=== PATIENT | male | born 1930 | race Caucasian/White ===

== ENCOUNTER → 2016-06-10 09:43 | Outpatient (CLI) | payer MEDICARE, OTHER ==
[2015-02-11 06:56] VITALS: BMI 25.1
[~2016-06-10 09:43] MED LIST: ASPIRIN325 MG PO; DIOVAN HCT 160/1 TAB PO; HYDROCODONE-APA1 TAB PO; POTASSIUM CHLO10 ME1; ZOCOR10 MG PO
== END | disposition home or self-care (01) ==
LOC: D.CT 09:43
DX: R10.9 Unspecified abdominal pain (principal)

== ENCOUNTER → 2016-09-29 12:46 | Outpatient (CLI) | payer MEDICARE, OTHER ==
[2015-02-11 06:56] VITALS: BMI 25.1
== END | disposition home or self-care (01) ==
LOC: D.US 12:46
DX: N50.811 Right testicular pain (principal)

== ENCOUNTER 2017-10-01 12:09 | Emergency (ER) | payer MEDICARE, OTHER ==
[~2017-10-01] VITALS: Ht 182.9 cm; Wt 88.6 kg
[2017-10-01 12:14] VITALS: Ht 182.9 cm; Wt 88.6 kg
[2017-10-01 12:29] LABS: BASOPHILS 0.2 % (0-2); EOSINOPHILS 0.8 % (0-7); HEMATOCRIT 48.7 % (42.0-54.0); HEMOGLOBIN 16.6 g/dL (13.5-17.5); IMMATURE GRANULOCYTES 0.2 % (0-5); LYMPHOCYTES 23.4 % (15-50); MCH 32.1 pg (26.0-34.0); MCHC 34.1 g/dL (31.0-37.0); MCV 94.2 fL (80.0-100.0); MEAN PLATELET VOLUME 11.1 fL (7.4-10.4); MONOCYTES 7.9 % (2-11); NEUTROPHILS 67.5 % (40-80); PLATELET COUNT 124 10x3/uL (130-400); RBC 5.17 10x6/uL (4.20-6.10); RDW 12.6 % (11.5-14.5); WBC 6.1 10x3/uL (4.8-10.8)
[2017-10-01 12:43] LABS: ALKALINE PHOSPHATASE 65 U/L (46-116); ALT (SGPT) 17 U/L (10-68); BILIRUBIN - TOTAL 1.03 mg/dL (0.2-1.3); CALC OSMOLALITY 285 mosm/kg (275-300); CALCIUM 9.2 mg/dL (8.5-10.1); CARBON DIOXIDE 27.7 mmol/L (21.0-32.0); CHLORIDE - SERUM 105 mmol/L (98-107); CREATININE - SERUM 0.9 mg/dL (0.6-1.3); GLUCOSE 105 mg/dL (74-106); POTASSIUM - SERUM 3.6 mmol/L (3.5-5.1); PROTEIN - SERUM 7.5 g/dL (6.4-8.2); SODIUM 143 mmol/L (136-145); UREA NITROGEN 15 mg/dL (7-18); eGFR NON AFRICAN AMERICAN 85 mL/min (90-120)
[2017-10-01 12:54] LABS: CREATINE KINASE 74 UL (21-232); PRO BNP 150 pg/mL (0-450); TROPONIN-I < 0.017 ng/mL (0.000-0.060)
[2017-10-01] MEDS ORDERED: LEXAPRO10 MG PO (13:52)
[2017-10-01 14:11] LABS: APPEARANCE CLEAR (CLEAR); BILIRUBIN NEGATIVE (NEGATIVE); COLOR YELLOW (YELLOW); GLUCOSE 100 mg/dL (NEGATIVE); KETONE NEGATIVE (NEGATIVE); NITRITE NEGATIVE (NEGATIVE); PROTEIN NEGATIVE (NEGATIVE); SPECIFIC GRAVITY 1.025 (1.005-1.020); UROBILINOGEN NORMAL (NORMAL)
[2017-10-01 14:13] LABS: BACTERIA FEW /hpf (NONE SEEN); EPITHELIAL CELLS 0-5 /hpf (0-5); MUCUS >1+ /lpf (NONE SEEN); RED CELLS - URINE 0-5 /hpf (0-5); WHITE CELLS - URINE 0-5 /hpf (0-5)
[2017-10-01 15:13] VITALS: BP 141/83
== END 2017-10-01 15:15 | disposition home or self-care (01) ==
LOC: D.ER 12:09
PROVIDERS: Emergency Medicine
DX: F32.9 Major depressive disorder, single episode, unspecified (principal); F43.20 Adjustment disorder, unspecified; X30.XXXA Exposure to excessive natural heat, initial encounter; Y93.89 Activity, other specified; Y92.89 Other specified places as the place of occurrence of the external cause

== ENCOUNTER 2018-02-08 10:43 | Outpatient (CLI) | payer MEDICARE, OTHER ==
[~2018-02-08] VITALS: Ht 182.9 cm; Wt 88.6 kg
--- NOTE | ~2018-02-08 | HEMODYNAMI ---
PATIENT:JAVIER PENNY MEDICAL RECORD: [id number] : 34 LOCATION:[facility] ADMISSION DATE: 02/08/18 Generatedon:02/08/201813:19 Patient name: JAVIER PENNY Patient #: [id number] SSN: : 1930 Date of study: 02/08/2018 Page: Of Hemodynamic Procedure Report Patient Data Patient Demographics Procedure consent was obtained First Name: JAVIER Gender: Male Last Name: ZOHAIB : 1930 Middle Initial: E Age: 87 year(s) Patient #: [id number] Race: Unknown Additional ID: [id number] Contact details [address]: [address] [place] [address] ROAD State: [place] City: [place] Zip code: [address] Past Medical History Allergies Allergen Reaction Date Comments Reported Other allergy 02/08/2018 Tetanus,Keflex Admission Admission Data Admission Date: 02/08/2018 Admission Time: 10:43 Admit Source: Other Lab Results Lab Result Date: 02/08/2018 Lab Result Time: 11:28 Biochemistry Name Units Result Min Max BUN mg/dl 19 --(----)*- 7 18 Creatinine mg/dl 1 --(--*-)-- 0.6 1.3 CBC Name Units Result Min Max Hematocrit % 48 --(-*--)-- 42 54 Hemoglobin g/dl 16.3 --(--*-)-- 13.5 17.5 Procedure Procedure Types Cath Procedure Peripheral Cath Diagnostic Procedure Geospatial Technician Peripheral Procedures Tzzid-Sorpxnh-Uch-Off Procedure Description Procedure Date Procedure Date: 02/08/2018 Procedure Start Time: 13:03 Procedure End Time: 13:17 Procedure Staff Name Function Adolfo Tyler RT Monitor Patito Au RT Scrub Parminder Mak RT Waterproof Material Folder Varun Mccann MD Performing Physician Chavez Luis RN Nurse Marino Sweeney RT Monitor Procedure Data Cath Procedure Fluoroscopy Diagnostic fluoroscopy Total fluoroscopy Time: 1.1 time: 1.1 min min Diagnostic fluoroscopy Total fluoroscopy dose: 224 dose: 224 mGy mGy Contrast Material Contrast Material Type Amount (ml) Isovue 300 73 Entry Location Entry Primary Successful Side Size Upsize Upsize Entry Closure Succes sful Closure Location (Fr) 1 (Fr) 2 (Fr) Remarks Device Remarks Femoral Right 5 Fr Exoseal artery Estimated blood loss: 10 ml Diagnostic catheters Device Type Used For End Catheter Placement DIAGNOSTIC UF 5Fr Procedure catheter ([id number]) Procedure Complications No complications Procedure Medications Medication Administration Route Dosage 0.9% NaCl I.V. 100 ml/hr Oxygen etCO2 Nasal cannula 2 l/min Lidocaine 2% added to field 20 Heparin Flush Bag added to field 2 bags (1000units/500ml NS) Versed I.V. 2 mg Fentanyl I.V. 50 mcg Versed I.V. 2 mg Fentanyl I.V. 50 mcg Hemodynamics Rest HGB: 16.3 (g/dl) Heart Rate: 83 (bpm) Pressure Samples Time Site Value (mmHg) Purpose Heart Use Rate(bpm) 13:12 AO 125/69(94) Snapshot 102 Snapshots Pre Cath Intra NCS Post Cath Vital Signs Time Heart Resp SPO2 etCO2 NIBP (mmHg) Rhythm Pain Sedation Rate (ipm) (%) (mmHg) Status Level (bpm) 12:50:54 93 17 100 29.3 151/87(122) Paced 0 (11) 10(A) , No pain 12:55:16 87 16 100 33.9 157/84(124) Paced 0 (11) 10(A) , No pain 13:00:30 82 17 100 35.3 158/95(137) Paced 0 (11) 10(A) , No pain 13:06:18 80 17 100 35.3 161/67(112) Paced 0 (11) 10(A) , No pain 13:10:44 82 16 100 24 158/100(116) Paced 0 (11) 10(A) , No pain 13:15:53 77 17 98 39.1 174/90(120) Paced 0 (11) 10(A) , No pain Medications Time Medication Route Dose Verified Delivered Reason Notes Eff ectiveness by by 12:48:35 0.9% NaCl I.V. 100 Benjamin Any used for ml/hr Andrew Nelson procedure RN 12:48:45 Oxygen etCO2 2 Benjamin Any used for Nasal l/min Andrew Nelson procedure cannula MD MUSTAFA 12:48:53 Lidocaine 2% added 20ml Benjamin Alexander for local to vial [facility] anesthetic field MD ORONA 12:48:58 Heparin Flush added 2 Benjamin Alexander used for Bag to bags [facility] procedure (1000units/500ml field MD ORONA NS) 12:59:08 Versed I.V. 2 mg Varun Any for Ramy Damon sedation RN 12:59:23 Fentanyl I.V. 50 Varun Any for mcg Ramy Damon sedation RN 13:09:36 Versed I.V. 2 mg Varun Any for Ramy Damon sedation RN 13:09:40 Fentanyl I.V. 50 Varun Any for mcg Ramy Damon sedation copy technician Log Time Note 12:20:01 Parminder Mak RT(R) sent for patient. Start room use. 12:38:25 Informed consent obtained and on chart 12:38:29 Admit Source: Other 12:38:59 Diagnostic Cath status Elective 12:39:09 Time tracking: Regular hours (M-F 7:00 - 5:00) 12:39:12 Plan of Care:Hemodynamics will remain stable., Cardiac rhythm will remain stable., Comfort level will be maintained., Respiratory function will remain adequate., Patient/ family verbilizes understanding of procedure., Procedure tolerated without complication., Recovers from procedure without complications.. 12:39:18 Patient received from Pre/Post Procedure Room to CCL 1 Alert and oriented. Tansferred to table in Supine position. 12:39:19 Warm blankets applied, and lydia hugger turned on for patient comfort. 12:39:20 Correct patient and procedure confirmed by team. 12:39:20 ECG and BP/O2 sat monitors applied to patient. 12:39:30 H&P Date Dictated: 02/01/2018 Within 30 days and on chart., H&P Addendum completed by physician on day of procedure. (MUST COMPLETE FOR ALL OUTPATIENTS). 12:48:35 0.9% NaCl 100 ml/hr I.V. was administered by Any Damon RN; used for procedure; 12:48:36 Vital chart was started 12:48:45 Oxygen 2 l/min etCO2 Nasal cannula was administered by Any Nelson RN; used for procedure; 12:48:53 Lidocaine 2% 20ml vial added to field was administered by Benjamin Morales MD; for local anesthetic; 12:48:58 Heparin Flush Bag (1000units/500ml NS) 2 bags added to field was administered by Benjamin Morales MD; used for procedure; 12:56:42 Baseline sample Acquired. 12:56:47 Rhythm: paced 12:56:52 Full Disclosure recording started 12:56:57 Pre-procedure instructions explained to patient. 12:57:02 Pre-op teaching completed and patient verbalized understanding. 12:57:03 Family in waiting room. 12:57:04 Patient NPO since Midnight. 12:57:16 Patient allergic to Other allergyTetanus,Keflex 12:57:20 Is the patient allergic to Iodine/contrast media? No. 12:57:22 Is patient on blood thinner?No 12:57:23 Patient diabetic? No. 12:57:36 Previous problem with sedation/anesthesia? No ? 12:57:38 Snore? No 12:57:39 Sleep apnea? No 12:57:40 Deviated septum? No 12:57:45 Opens mouth fully? Yes 12:57:46 Sticks out tongue? Yes 12:57:48 Airway obstruction? No ? 12:57:49 Dentures? No ? 12:57:52 Pre procedure: right dorsailis pedis pulse 2+ Normal; easily identifiable; not easily obliterated 12:57:55 Pre procedure: left posterior tibial pulse 2+ Normal; easily identifiable; not easily obliterated 12:57:57 Patient pain scale 0/10 ?. 12:58:00 IV patent on arrival in left forearm with 0.9% NaCl at [facility]. 12:58:34 Lab Result : BUN 19 mg/dl 12:58:34 Lab Result : Creatinine 1 mg/dl 12:58:34 Lab Result : Hemoglobin 16.3 g/dl 12:58:34 Lab Result : Hematocrit 48 % 12:58:36 Lab results completed and on chart. 12:58:38 Bilateral groins area was prepped with chlora-prep and draped in sterile fashion 12:58:39 Alarms reviewed by R. N. 12:58:39 Sharps counted by scrub and verified by R.N. 12:58:41 Physician arrived 12:58:41 --------ALL STOP TIME OUT------ 12:58:42 Final Timeout: patient, procedure, and site verified with staff and physician. All members of the team are in agreement. 12:58:44 Bilateral groins site verified by team. 12:59:03 Physical assessment completed. ASA score P 2 - A patient with mild systemic disease as per Varun Mccann MD. 12:59:06 Sedation plan: IV Moderate Sedation Medication:Versed, Fentanyl 12:59:08 Versed 2 mg I.V. was administered by Any Damon RN; for sedation; 12:59:23 Fentanyl 50 mcg I.V. was administered by Any Damon RN; for sedation; 13:00:13 Zero performed for pressure channel P1 13:02:44 Procedure started. 13:02:47 ACIST Syringe (69826) opened to sterile field. 13:02:47 Bag Decanter (2002S) opened to sterile field. 13:02:49 ACIST Manifold (61473) opened to sterile field. 13:02:50 ACIST Hand Control (76072) opened to sterile field. 13:02:52 Tegaderm 4 x 4 (1626W) opened to sterile field. 13:02:54 Medline Cath Pack ([id number]) opened to sterile field. 13:02:56 DIAGNOSTIC WIRE .035 260cm J wire (830588) opened to sterile field. 13:03:07 SHEATH 5FR [place] (UPY024) opened to sterile field. 13:03:18 Local anesthetic to right femoral artery with Lidocaine 2% by Varun Mccann MD.INITIAL ACCESS ONLY 13:03:45 A 5 Fr sheath was inserted into the Right Femoral artery 13:09:36 Versed 2 mg I.V. was administered by Any Damon RN; for sedation; 13:09:40 Fentanyl 50 mcg I.V. was administered by Any Damon RN; for sedation; 13:10:44 A DIAGNOSTIC UF 5Fr catheter ([id number]) was advanced over the wire and used for Procedure. 13:11:10 Abdominal Aortagram was performed. 13:11:57 Left leg runoff performed. 13:12:20 Right leg runoff performed. 13:13:21 Catheter removed. 13:14:23 EXOSEAL 5Fr (EX500) opened to sterile field. 13:14:38 Sheath removed intact; hemostasis achieved with Exoseal to the Right Femoral artery. 13:14:41 Procedure ended.(Physican Out) 13:15:44 Fluoroscopy time 01.10 minutes. 13:15:58 Fluoroscopy dose: 224 mGy 13:15:58 Flurop Dose total: 224 13:16:04 Contrast amount:Isovue 300 73ml. 13:16:11 Sharps counted by scrub and verified by R.N. 13:16:12 Insertion/operative site no bleeding no hematoma. 13:16:16 Post-op/insertion site Right Femoral artery dressed using a 4 x 4 and Tegaderm. 13:16:17 Post Procedure Pulses reassessed and unchanged 13:16:23 Post-procedure physical assessment completed. ASA score P 2 - A patient with mild systemic disease as per Varun Mccann MD. 13:16:26 Post procedure rhythm: unchanged. 13:16:28 Estimated blood loss: 10 ml 13:16:30 Post procedure instruction explained to patient.Patient verbalizes understanding. 13:16:31 Patient needs reinforcement of post procedure teaching. 13:17:12 Procedure and supply charges have been captured, reviewed, submitted and are correct. 13:17:16 Procedure Complication : No complications 13:17:19 Vital chart was stopped 13:17:19 See physician's report for complete and final results. 13:17:39 Report given to Pre/Post Procedure Room. 13:17:42 Patient transfered to Pre/Post Procedure Room with Stretcher. 13:17:44 Procedure ended. 13:17:44 Full Disclosure recording stopped 13:19:23 End room use (Document Last) Device Usage Item Name Manufacture Quantity Catalog Hospital Part Current Minimal L ot# / Number Charge Number Stock Stock Serial# Code ACIST Acist 1 58070 904985 747374 441313 20 Syringe Medical (93754) Systems Inc Bag Microtek 1 623517 33039 655835 5 Decanter Medical Inc. () ACIST Acist 1 13128 115887 361126 189637 5 Manifold Medical (48960) Systems Inc ACIST Hand Acist 1 40033 094890 908907 988461 5 Control Medical (22803) Systems Inc Tegaderm 4 3M 1 1626W 707370 111076 661684 5 x 4 (1626W) Medline Medline 1 [id number] 044805 77170 694179 5 Cath Pack ([id number]) DIAGNOSTIC St Luis 1 596562 411346 459995 564805 30 WIRE .035 260cm J wire (403760) SHEATH 5FR Terumo 1 PBS328 148564 353148 118055 40 [place] (MHQ737) DIAGNOSTIC Cardinal 1 [id number] 967227 298378 773084 10 UF 5Fr Health catheter (851727I6) EXOSEAL 5Fr Cardinal 1 EX500 699073 915905 679495 10 (EX500) Health Signature Audit [place]inos Stage Time Signature Unsigned Intra-Procedure 02/08/2018 Marino Sweeney 1:19:53 PM RT(R) Signatures Monitor : Adolfo Tyler RT Signature : Date : Time : Monitor : Marino Sweeney RT Signature : Date : Time : [address] [place] [address]
[~2018-02-08 10:43] MED LIST changes: +LEXAPRO10 MG PO
[2018-02-08] MEDS ORDERED: MOBIC7.5 MG PO (11:01)
[2018-02-08 11:19] VITALS: BP 143/78; Ht 182.9 cm; Wt 88.6 kg
[2018-02-08 11:42] LABS: CALC OSMOLALITY 280 mosm/kg (275-300); CALCIUM 8.3 mg/dL (8.5-10.1); CARBON DIOXIDE 26.8 mmol/L (21.0-32.0); CHLORIDE - SERUM 105 mmol/L (98-107); GLUCOSE 105 mg/dL (74-106); POTASSIUM - SERUM 4.1 mmol/L (3.5-5.1); SODIUM 140 mmol/L (136-145); UREA NITROGEN 19 mg/dL (7-18); eGFR NON AFRICAN AMERICAN 75 mL/min (90-120)
[2018-02-08 12:04] LABS: BASOPHILS 0.1 % (0-2); EOSINOPHILS 2.3 % (0-7); HEMOGLOBIN 16.3 g/dL (13.5-17.5); IMMATURE GRANULOCYTES 0.3 % (0-5); LYMPHOCYTES 21.7 % (15-50); MCH 33.1 pg (26.0-34.0); MCV 97.4 fL (80.0-100.0); MEAN PLATELET VOLUME 13.4 fL (7.4-10.4); MONOCYTES 6.5 % (2-11); NEUTROPHILS 69.1 % (40-80); PLATELET COUNT 130 10x3/uL (130-400); RBC 4.93 10x6/uL (4.20-6.10); RDW 12.8 % (11.5-14.5); WBC 7.5 10x3/uL (4.8-10.8)
== END 2018-02-08 15:55 | disposition home or self-care (01) ==
LOC: D.CATH 10:43
PROVIDERS: Internal Medicine Cardiovascular Disease
DX: M25.559 Pain in unspecified hip (principal); M54.5 Low back pain; Z01.812 Encounter for preprocedural laboratory examination

== ENCOUNTER 2018-04-23 22:52 | Emergency (ER) | payer MEDICARE, BC ==
[~2018-04-23] VITALS: Ht 182.9 cm; Wt 90.9 kg
[~2018-04-23 22:52] MED LIST changes: +MOBIC7.5 MG PO
[2018-04-23 23:15] VITALS: Ht 182.9 cm; Wt 90.9 kg
[2018-04-23] MEDS ORDERED: ATIVAN0.5 MG PO (23:17)
[2018-04-23] MEDS ORDERED: TYLENOL W/CODEI1 TAB PO (23:17)
[2018-04-24] MEDS ORDERED: VOLTAREN75 MG PO (00:03)
[2018-04-24 00:58] VITALS: BP 148/71
== END 2018-04-24 00:59 | disposition home or self-care (01) ==
LOC: D.ER 22:52
DX: S94.92XA Injury of unspecified nerve at ankle and foot level, left leg, initial encounter (principal); X58.XXXA Exposure to other specified factors, initial encounter; Y93.89 Activity, other specified; Y92.019 Unspecified place in single-family (private) house as the place of occurrence of the external cause; I10 Essential (primary) hypertension; Z85.038 Personal history of other malignant neoplasm of large intestine; Z85.048 Personal history of other malignant neoplasm of rectum, rectosigmoid junction, and anus; Z95.0 Presence of cardiac pacemaker

== ENCOUNTER 2018-05-15 13:39 | Inpatient (IN) | payer OTHER ==
[2018-05-15] VITALS (9 sets, daily range): BP systolic 106–162; BP diastolic 57–93
[~2018-05-15] VITALS: Ht 182.9 cm; Wt 89.5 kg
[~2018-05-15 13:39] MED LIST changes: +ATIVAN0.5 MG PO; -POTASSIUM CHLO10 ME1; +POTASSIUM CHLO10 ME1 PO; +TYLENOL W/CODEI1 TAB PO; +VOLTAREN75 MG PO
--- NOTE | 2018-05-15 14:43 | NUR ---
TRAUMA BAND NUMBER [id number]
[2018-05-15 15:11] LABS: BASOPHILS 0.3 % (0-2); EOSINOPHILS 0.9 % (0-7); HEMATOCRIT 45.8 % (42.0-54.0); HEMOGLOBIN 15.6 g/dL (13.5-17.5); IMMATURE GRANULOCYTES 0.3 % (0-5); LYMPHOCYTES 11.9 % (15-50); MCH 31.8 pg (26.0-34.0); MCHC 34.1 g/dL (31.0-37.0); MCV 93.3 fL (80.0-100.0); MONOCYTES 7.2 % (2-11); NEUTROPHILS 79.4 % (40-80); PLATELET COUNT 114 10x3/uL (130-400); RBC 4.91 10x6/uL (4.20-6.10); RDW 12.4 % (11.5-14.5); WBC 7.7 10x3/uL (4.8-10.8)
[2018-05-15 15:16] LABS: ALBUMIN 3.6 g/dL (3.4-5.0); ALKALINE PHOSPHATASE 56 U/L (46-116); ALT (SGPT) 18 U/L (10-68); BILIRUBIN - TOTAL 0.55 mg/dL (0.2-1.3); CALC OSMOLALITY 282 mosm/kg (275-300); CALCIUM 8.4 mg/dL (8.5-10.1); CARBON DIOXIDE 26.7 mmol/L (21.0-32.0); CHLORIDE - SERUM 104 mmol/L (98-107); GLUCOSE 112 mg/dL (74-106); POTASSIUM - SERUM 3.8 mmol/L (3.5-5.1); PROTEIN - SERUM 7.1 g/dL (6.4-8.2); SODIUM 141 mmol/L (136-145); UREA NITROGEN 16 mg/dL (7-18); eGFR NON AFRICAN AMERICAN 75 mL/min (90-120)
--- NOTE | 2018-05-15 15:16 | NUR ---
PTS HAND UNWRAPPED AND CLEANSED. SKIN TEAR NOTED TO L HAND. TELFA PAD APPLIED AND HAND WRAPPED BY NURSE.
[2018-05-15 15:29] LABS: CKMB 3.2 U/L (0.0-3.6); CREATINE KINASE 71 UL (21-232)
[2018-05-15 15:33] LABS: TROPONIN-I < 0.017 ng/mL (0.000-0.060)
--- NOTE | 2018-05-15 18:41 | NUR ---
PT RECEIVED TO ROOM VIA STRETCHER. ABLE TO TRANSFER SELF TO BED. ALERT AND ORIENTED. PLACED ON BEDSIDE MONITORING. DR BUNN HAS SEEN PATIENT WHILE IN ED.
--- NOTE | 2018-05-15 18:55 | NUR ---
PT GIVEN INCENTIVE SPIROMETRY. ABLE TO REACH 1500 REPEATEDLY. INSTRUCTED ON USE.
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
--- NOTE | 2018-05-15 19:00 | NUR ---
SITTING UP IN BED AWAKE AND ALERT, VISITING WITH FAMILY. COMPLAINS OF PAIN IN CHEST MUSCLES, RATED 3/10 ON PAIN SCALE. SCD PLACED. SIDERAILS UP X2. CALL LIGHT WITHIN REACH.
--- NOTE | 2018-05-15 19:39 | NUR ---
EMERGENCY CONTACTS ARE GRANDDAUGHTERS SHEA PENNY [phone] TANNER PENNY CELL [phone] STAYING AT HOUSE. HIS NUMBER IS [phone] GRANDDAUGHTER TANNER HAS BEEN LIVING WITH PATIENT FOR +-6MONTHS
--- NOTE | 2018-05-15 21:00 | NUR ---
SITTING UP IN BED, AWAKE AND ALERT. REPORTS PAIN IN CHEST MUSCLES "BETTER." RATED 2/10 ON PAIN SCALE. ASSISTED WITH REPOSITIONING TO RT SIDE. CALL LIGHT IN REACH. SR UP X2. NO DISTRESS OBSERVED.
--- NOTE | 2018-05-15 23:00 | NUR ---
LYING IN BED, AWAKE AND ALERT. 50ML OF DARK YELLOW URINE EMPTIED FROM URINAL. ENCOURAGED TO USE INCENTIVE SPIROMETER. CALL LIGHT IN REACH. SIDE RAILS UP X2. NO DISTRESS OBSERVED.
[2018-05-16] VITALS (13 sets, daily range): BP systolic 90–160; BP diastolic 60–100; Ht 182.9 cm; Wt 89.5 kg
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
[2018-05-16 02:50] LABS: BASOPHILS 0.1 % (0-2); EOSINOPHILS 0.2 % (0-7); HEMATOCRIT 42.2 % (42.0-54.0); HEMOGLOBIN 14.2 g/dL (13.5-17.5); IMMATURE GRANULOCYTES 0.2 % (0-5); LYMPHOCYTES 11.1 % (15-50); MCH 31.3 pg (26.0-34.0); MCHC 33.6 g/dL (31.0-37.0); MCV 93.2 fL (80.0-100.0); MEAN PLATELET VOLUME 11.1 fL (7.4-10.4); MONOCYTES 9.5 % (2-11); NEUTROPHILS 78.9 % (40-80); PLATELET COUNT 104 10x3/uL (130-400); RBC 4.53 10x6/uL (4.20-6.10); RDW 12.4 % (11.5-14.5); WBC 8.2 10x3/uL (4.8-10.8)
--- NOTE | 2018-05-16 03:00 | NUR ---
RESTING IN BED WITH EYES CLOSED. ROUSES EASILY TO VERBAL STIMULI. ASSISTED IN REPOSITIONING TO RT SIDE. CALL LIGHT IN REACH. SR UP X2. NO DISTRESS OBSERVED.
[2018-05-16 03:06] LABS: ALBUMIN 3.2 g/dL (3.4-5.0); ALKALINE PHOSPHATASE 46 U/L (46-116); ALT (SGPT) 15 U/L (10-68); BILIRUBIN - TOTAL 0.87 mg/dL (0.2-1.3); CALC OSMOLALITY 279 mosm/kg (275-300); CALCIUM 7.8 mg/dL (8.5-10.1); CARBON DIOXIDE 25.4 mmol/L (21.0-32.0); CHLORIDE - SERUM 104 mmol/L (98-107); CREATININE - SERUM 0.9 mg/dL (0.6-1.3); GLUCOSE 117 mg/dL (74-106); POTASSIUM - SERUM 3.7 mmol/L (3.5-5.1); PROTEIN - SERUM 6.4 g/dL (6.4-8.2); SODIUM 140 mmol/L (136-145); UREA NITROGEN 13 mg/dL (7-18); eGFR NON AFRICAN AMERICAN 85 mL/min (90-120)
[2018-05-16 03:07] LABS: TROPONIN-I < 0.017 ng/mL (0.000-0.060)
--- NOTE | 2018-05-16 05:00 | NUR ---
RESTING IN BED WITH EYES CLOSED. ROUSES EASLIY TO VERBAL STIMULI. NO DISTRESS NOTED.
--- NOTE | 2018-05-16 06:11 | NUR ---
CALL RECEIVED FROM [facility], [facility]ITY [facility]ORD VERIFIED UPDATE GIVEN QUESTIONS ANSWERED.
--- NOTE | 2018-05-16 06:12 | NUR ---
PT UP TO BATHROOM C/O PAIN IN STERNUM AND MUSCULAR AREA OF CHEST. MEDS GIVEN PER MAR
--- NOTE | 2018-05-16 06:30 | NUR ---
COMPLAINING OF PAIN. STERNAL CHEST/MUSCULAR. RATED 10/10. COMPLAINS OF NAUSEA
--- NOTE | 2018-05-16 07:00 | NUR ---
RESTING IN BED WITH EYES CLOSED, ROUSES EASILY TO VERBAL STIMULI. DENIES PAIN OR NAUSEA AT PRESENT. RATED 0/10 ON NUMERICAL PAIN SCALE. NO STATUS CHANGE OR DISTRESS NOTED. CALL LIGHT IN REACH. SIDE RAILS UP X2.
--- NOTE | 2018-05-16 08:06 | NUR ---
UP IN BED AWAKE AT THIS TIME, FAMILY AT BEDSIDE. NO ACUTE DISTRESS NOTED. DRESSING TO LT HAND CHANGED, NOTED AN OPEN SKIN TARE TO 4TH KNUCKLE. 4X4 AND TAPE APPLIED TO AREA AFTER AREA CLEANSED. WILL CONTINUE PLAN OF CARE.
--- NOTE | 2018-05-16 10:00 | NUR ---
PT CONFIRMS THAT HE IS PASSING GAS.
--- NOTE | 2018-05-16 12:06 | NUR ---
UP IN BEDSIDE CHAIR AT THIS TIME VISITING WITH FAMILY. NO ACUTE DISTRESS NOTED. PT ABLE TO WALK WITH ASSIST. CALL LIGHT IN REACH. WILL CONTINUE PLAN OF CARE.
--- NOTE | 2018-05-16 14:07 | NUR ---
UP IN CHAIR WATCHING TV AT THIS TIME. NO ACUTE DISTRESS NOTED. WILL CONTINUE PLAN OF CARE.
--- NOTE | 2018-05-16 14:15 | MORECARE ---
CASE MANAGEMENT DISCHARGE SUMMARY PATIENT: JAVIER PENNY UNIT: [id number] ADM DATE: 05/15/18 AGE: 87 : 32 SEX: M [facility] AUTHOR: GONZÁLEZ OLVERA PHYSICIAN: REFERRING PHYSICIAN: CARLOS RODRIGUEZ MD DATE OF SERVICE: 05/16/18 Discharge Plan Patient Name: JAVIER PENNY [facility] [facility] 1930 Planned Disposition: Home Anticipated Discharge Date: Discharge Date: Expected LOS: Initial Reviewer: [email or web address] Initial Review Date: 05/16/2018 Generated: 05/16/18 3:15 pm DCPIA - Discharge Planning Initial Assessment Updated by [email or web address]: Taty Teran on 05/16/18 2:12 pm * Is the patient Alert and Oriented? Yes * How many steps to enter\exit or inside your home? * PCP [facility] * Pharmacy NP - [facility] * Preadmission Environment Home Alone * ADLs Independent * Equipment None * List name and contact numbers for known caregivers / representatives who currently or will assist patient after discharge: EDDIE RILEY [facility] [phone] * Verbal permission to speak to the caregivers and representatives has been obtained from the patient. Yes * Community resources currently utilized None * Additional services required to return to the preadmission environment? No * Can the patient safely return to the preadmission environment? Yes * Has this patient been hospitalized within the prior 30 days at any hospital? No Patient Name: JAVIER PENNY Page [phone] at 1415 All edits/amendments must be made on the electronic document DICTATION DATE: 05/16/181413 FOSTER CARE WORKER: RICHIE 05/16/18 1414 RPT#: [id number] DC DATE: STATUS: ADM IN [facility] [address] [place] [address] END OF REPORT
--- NOTE | 2018-05-16 14:24 | MORECARE ---
CASE MANAGEMENT DISCHARGE SUMMARY PATIENT: JAVIER PENNY UNIT: [id number] ADM DATE: 05/15/18 AGE: 87 : 32 SEX: M ROOM/BED: [facility] AUTHOR: WADEDOC PHYSICIAN: REFERRING PHYSICIAN: CARLOS RODRIGUEZ MD DATE OF SERVICE: 05/16/18 Discharge Plan Patient Name: JAVIER PENNY Facility: [facility]:[place] : 1930 Planned Disposition: Home Anticipated Discharge Date: Discharge Date: Expected LOS: Initial Reviewer: [email or web address] Initial Review Date: 05/16/2018 Generated: 05/16/18 3:23 pm Comments DCP- Discharge Planning Updated by [email or web address]: Taty Teran on 05/16/18 1:[address] Patient Name: JAVIER PENNY Admission Status: ER Accout number: [id number] Admission Date: 05-15-2018 : 1930 Admission Diagnosis: Attending: CARLOS RODRIGUEZ Current LOS: 1 Anticipated DC Date: Planned Disposition: Home Primary Insurance: MEDICARE A & B Discharge Planning Comments: CM met with patient at bedside about discharge planning / needs. Patient states he lives alone. Patient states he plans to discharge to his home. States he will have family transport him home upon discharge. Denies need for home health or other community resource needs. States home environment is safe. Denies any discharge needs or concerns at this time. CM will continue to follow and assist as needed with discharge planning / needs. Admissions Director: Taty Teran DCPIA - Discharge Planning Initial Assessment Updated by [email or web address]: Taty Teran on 05/16/18 2:12 pm * Is the patient Alert and Oriented? Yes * How many steps to enter\exit or inside your home? * PCP [facility] * Pharmacy NP - [facility] * Preadmission Environment Home Alone * ADLs Independent * Equipment None * List name and contact numbers for known caregivers / representatives who currently or will assist patient after discharge: EDIDE RILEY - [facility]- [phone] * Verbal permission to speak to the caregivers and representatives has been obtained from the patient. Yes * Community resources currently utilized None * Additional services required to return to the preadmission environment? No * Can the patient safely return to the preadmission environment? Yes * Has this patient been hospitalized within the prior 30 days at any hospital? No Last DP export: 05/16/18 1:15 p Patient Name: JAVIER PENNY Page [id number] at 1424 All edits/amendments must be made on the electronic document DICTATION DATE: 05/16/181422 CENSUS ENUMERATOR: RICHIE 05/16/181422 RPT#: [id number] DC DATE: STATUS: ADM IN [facility] [address] [place] [address] END OF REPORT
--- NOTE | 2018-05-16 16:08 | NUR ---
NO CHANGE. NO ACUTE DISTRESS NOTED. PT UP IN CHAIR WATCHING TV. DENIES ANY NEEDS. WILL CONTINUE PLAN OF CARE.
--- NOTE | 2018-05-16 17:22 | NUR ---
AIR MATRESS OVERLAY PLACED AT THIS TIME TO BED. TOTAL LINEN CHANGE PROVIDED. NO ACUTE DISTRESS NOTED. WILL CONTINUE PLAN OF CARE.
--- NOTE | 2018-05-16 18:42 | NUR ---
CONTINENT BOWEL MOVEMENT NOTED AT THIS TIME VIA TOILET. PT PROVIDED OWN GRACIELA CARE. LYING IN BED WATCHING TV NOW. TRANSFERRED VIA MINIMA ASSIST. NO ACUTE DISTERSS NOTED. WILL CONTINUE PLAN OF CARE.
--- NOTE | 2018-05-16 19:00 | NUR ---
REPORT RECEIVED CARE ASSUMED INITIAL SHIFT ASSESSMENT COMPLETED SEE FLOWSHEET. PT AAOX4 WATCHING TELEVISION. DENIES NEEDS AT THIS TIME. PT MONITORED PER STANDARD CVICU PROTOCOL WITH ALL ALARMS SET, VERIFIED AND AUDIBLE AT NURSES STATION. BED IN LOW POSITION CALL LIGHT IN REACH AND PT ABLE TO USE TO MAKE NEEDS KNOWN. PT AWARE OF TRANSFER ORDERS. AWAITING BED ASSIGNMENT AND ROOM NUMBER.
--- NOTE | 2018-05-16 21:55 | NUR ---
ASSISTED PT UP TO BR TO VOID.. PT GAIT SLIGHTLY UNSTEADY. HE STATES HE ALWAYS HOLDS TO THINGS TO STEADY SELF. VOIDED FREELY. MEDS GIVEN DOCUMENTED ON MAR FOR PAIN IN STERNUM AGGRAVATED BY MOVEMENT. HS SNACK OFFERED-REFUSED.
--- NOTE | 2018-05-16 23:00 | NUR ---
PT RESTING WELL TONIGHT. NO C/O . EASILY AWAKEN
--- NOTE | 2018-05-17 01:00 | NUR ---
PT ASLEEP, RESP REG AND NONLABORED
[2018-05-17 03:00] VITALS: BP 119/76
--- NOTE | 2018-05-17 03:00 | NUR ---
PT AWAKE DENIES NEEDS.
--- NOTE | 2018-05-17 05:00 | NUR ---
PT WAS GIVEN MEDS DOCUMENTED ON JUN FOR DISCOMFORT. PT STATING HE FEELS TÑOO GOOD. REFUSED OFFERED BATH STATING HE WANTS TO WAIT UNTIL HE CAN GET IN A SHOWER. NO FURTHER NEEDS AT THIS TIME
[2018-05-17 07:00] VITALS: BP 138/82
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
--- NOTE | 2018-05-17 10:41 | NUR ---
DR RODRIGUEZ IN UNIT STATED HE WANTS TO DC PT HOME AND HE WILL PUT DC ORDERS IN, WRITTEN PRESCRIPTION FOR NORCO, CALLED PT GRANDDAUGHTER WHO STATED SHE WILL SEND FAMILY TO PICK PT UP
[2018-05-17] MEDS ORDERED: ASPIRIN325 MG PO (10:51)
[2018-05-17 11:00] VITALS: BP 144/86
--- NOTE | 2018-05-17 11:31 | NUR ---
PIV DCD, DC MEDS AND TEACHING REVIEWED WITH PT AND GRANDDAUGHTER, DENY ALL QUESTIONS, STATE THEY WILL SCHEDULE FOLLOW UP APPT WITH DR POTTER, ASSISTED TO CAR WITHOUT DIFFICULTY
--- NOTE | 2018-05-17 18:45 | MORECARE ---
CASE MANAGEMENT DISCHARGE SUMMARY PATIENT: JAVIER PENNY UNIT: [id number] ADM DATE: 05/15/18 AGE: 87 : 32 SEX: M ROOM/BED: D.08 AUTHOR: WADE,DOC PHYSICIAN: REFERRING PHYSICIAN: CARLOS RODRIGUEZ MD DATE OF SERVICE: 05/17/18 Discharge Plan Patient Name: JAVIER PENNY Facility: [facility]:[place] : 1930 Planned Disposition: Home Anticipated Discharge Date: Discharge Date: 05/17/2018 Expected LOS: Initial Reviewer: [email or web address] Initial Review Date: 05/16/2018 Generated: 05/17/18 7:45 pm Comments DCP- Discharge Planning Updated by [email or web address]: Taty Teran on 05/16/18 1:[address] Patient Name: JAVIER PENNY Admission Status: ER Accout number: [id number] Admission Date: 05-15-2018 : 1930 Admission Diagnosis: Attending: CARLOS RODRIGUEZ Current LOS: 1 Anticipated DC Date: Planned Disposition: Home Primary Insurance: MEDICARE A & B Discharge Planning Comments: CM met with patient at bedside about discharge planning / needs. Patient states he lives alone. Patient states he plans to discharge to his home. States he will have family transport him home upon discharge. Denies need for home health or other community resource needs. States home environment is safe. Denies any discharge needs or concerns at this time. CM will continue to follow and assist as needed with discharge planning / needs. Foam Cutting Supervisor: Taty Teran DCPIA - Discharge Planning Initial Assessment Updated by [email or web address]: Taty Teran on 05/16/18 2:12 pm * Is the patient Alert and Oriented? Yes * How many steps to enter\exit or inside your home? * PCP T[facility]IQ * [facility]acy NP - [facility] * Preadmission Environment Home Alone * ADLs Independent * Equipment None * List name and contact numbers for known caregivers / representatives who currently or will assist patient after discharge: EDDIE RILEY - [facility] [phone] * Verbal permission to speak to the caregivers and representatives has been obtained from the patient. Yes * Community resources currently utilized None * Additional services required to return to the preadmission environment? No * Can the patient safely return to the preadmission environment? Yes * Has this patient been hospitalized within the prior 30 days at any hospital? No Last DP export: 05/16/18 1:23 p Patient Name: JAVIER PENNY Page [id number] at 1845 All edits/amendments must be made on the electronic document DICTATION DATE: 05/17/181844 CLIENT APPLICATION SUPPORT SPECIALIST: RICHIE 05/17/181844 RPT#: [id number] DC DATE:05/17/18 STATUS: DIS IN [facility] [address] [place] [address] END OF REPORT
== END 2018-05-17 11:32 | disposition home or self-care (01) | DRG 206 ==
LOC: D.ER 13:39 → D.CVICU 17:50
PROVIDERS: Family Medicine; Thoracic Surgery (Cardiothoracic Vascular Surgery); ADMIT Internal Medicine Nephrology
DX: S27.892A Contusion of other specified intrathoracic organs, initial encounter (principal); S22.20XA Unspecified fracture of sternum, initial encounter for closed fracture; V89.2XXA Person injured in unspecified motor-vehicle accident, traffic, initial encounter; G44.309 Post-traumatic headache, unspecified, not intractable; I10 Essential (primary) hypertension; R53.81 Other malaise; R20.0 Anesthesia of skin

== ENCOUNTER 2018-05-21 16:54 | Inpatient (IN) | payer MEDICARE, BC ==
[~2018-05-21] VITALS: Ht 182.9 cm; Wt 78.8 kg
[2018-05-21] VITALS (11 sets, daily range): BP systolic 129–180; BP diastolic 81–101
[2018-05-21 20:18] LABS: BASOPHILS 0.3 % (0-2); EOSINOPHILS 3.8 % (0-7); HEMATOCRIT 42.7 % (42.0-54.0); HEMOGLOBIN 14.4 g/dL (13.5-17.5); IMMATURE GRANULOCYTES 0.1 % (0-5); LYMPHOCYTES 15.7 % (15-50); MCH 31.9 pg (26.0-34.0); MCHC 33.7 g/dL (31.0-37.0); MCV 94.7 fL (80.0-100.0); MEAN PLATELET VOLUME 11.4 fL (7.4-10.4); MONOCYTES 11.9 % (2-11); NEUTROPHILS 68.2 % (40-80); RBC 4.51 10x6/uL (4.20-6.10); RDW 12.7 % (11.5-14.5); WBC 6.8 10x3/uL (4.8-10.8)
[2018-05-21 20:19] LABS: PLATELET COUNT 132 10x3/uL (130-400)
[2018-05-21 20:25] LABS: INR 1.09 (0.85-1.17); PROTIME 13.6 SECONDS (11.6-15.0)
[2018-05-21 20:33] LABS: ALBUMIN 3.1 g/dL (3.4-5.0); ALKALINE PHOSPHATASE 57 U/L (46-116); ALT (SGPT) 13 U/L (10-68); BILIRUBIN - TOTAL 0.67 mg/dL (0.2-1.3); CALC OSMOLALITY 283 mosm/kg (275-300); CALCIUM 8.4 mg/dL (8.5-10.1); CARBON DIOXIDE 28.2 mmol/L (21.0-32.0); CHLORIDE - SERUM 106 mmol/L (98-107); CREATININE - SERUM 0.9 mg/dL (0.6-1.3); GLUCOSE 114 mg/dL (74-106); POTASSIUM - SERUM 3.7 mmol/L (3.5-5.1); PROTEIN - SERUM 6.8 g/dL (6.4-8.2); SODIUM 141 mmol/L (136-145); UREA NITROGEN 19 mg/dL (7-18); eGFR NON AFRICAN AMERICAN 85 mL/min (90-120)
[2018-05-21 20:42] LABS: C-REACTIVE PROTEIN 2.8 mg/dL (0.0-0.9); CKMB 1.6 U/L (0.0-3.6); CREATINE KINASE 35 UL (21-232)
[2018-05-21 20:45] LABS: TROPONIN-I < 0.017 ng/mL (0.000-0.060)
[2018-05-21 22:21] LABS: APTT 29.6 SECONDS (22.8-39.4)
[2018-05-21 22:34] LABS: D-DIMER-QUANTITATIVE 9.79 ug/mLFEU (0.20-0.54)
[2018-05-22] VITALS (8 sets, daily range): BP systolic 126–154; BP diastolic 61–93; BMI 27.7
[2018-05-22] MEDS ORDERED: ASPIRIN325 MG PO (00:04)
[2018-05-22] MEDS ORDERED: HYDROCODON-ACE1 EAC7 PO (00:04)
[2018-05-22] MEDS ORDERED: NORVASC5 MG PO (00:05)
[2018-05-22] MEDS ORDERED: LEXAPRO20 MG PO (00:07)
--- NOTE | 2018-05-22 00:10 | NUR ---
RECEIVED PT TO FLOOR FROM ER VIA STRETCHER. ACCOMPANIED BY FAMILY AND ER STAFF. TRANFERRED PT TO BED. PT DENIES PAIN. RESUMED HEPARIN DRIP @ 1300 UNIT/HR. ORDERED NEXT PTT FOR 0530 (6 HRS AFTER INITIAL START OF INFUSION) PER PROTOCOL. REVIEWED HOME MEDS AND HISTORY. ASSESSMENT COMPLETE PER FLOW-SHEET. PT EATING ICE CREAM. NO OTHER NEEDS. WILL CONTINUE TO MONITOR.
[2018-05-22 04:55] LABS: BASOPHILS 0.6 % (0-2); HEMATOCRIT 41.9 % (42.0-54.0); HEMOGLOBIN 13.9 g/dL (13.5-17.5); IMMATURE GRANULOCYTES 0.1 % (0-5); LYMPHOCYTES 15.1 % (15-50); MCH 31.5 pg (26.0-34.0); MCHC 33.2 g/dL (31.0-37.0); NEUTROPHILS 67.2 % (40-80); PLATELET COUNT 132 10x3/uL (130-400); RBC 4.41 10x6/uL (4.20-6.10); RDW 12.8 % (11.5-14.5); WBC 7.2 10x3/uL (4.8-10.8)
[2018-05-22 05:11] LABS: ALBUMIN 3.1 g/dL (3.4-5.0); ALKALINE PHOSPHATASE 52 U/L (46-116); ALT (SGPT) 13 U/L (10-68); BILIRUBIN - TOTAL 0.78 mg/dL (0.2-1.3); CALC OSMOLALITY 284 mosm/kg (275-300); CALCIUM 8.2 mg/dL (8.5-10.1); CARBON DIOXIDE 28.4 mmol/L (21.0-32.0); CHLORIDE - SERUM 107 mmol/L (98-107); CREATININE - SERUM 0.7 mg/dL (0.6-1.3); GLUCOSE 116 mg/dL (74-106); POTASSIUM - SERUM 3.6 mmol/L (3.5-5.1); PROTEIN - SERUM 6.5 g/dL (6.4-8.2); SODIUM 142 mmol/L (136-145); UREA NITROGEN 15 mg/dL (7-18); eGFR NON AFRICAN AMERICAN > 90 mL/min (90-120)
--- NOTE | 2018-05-22 08:06 | NUR ---
PT LYING IN BED, EVEN RISE AND FALL OF CHEST NO SIGNS OF LABORED BREATHING, BED IN LOW POSITION, CL IN REACH CONTINUE WITH PLAN OF CARE
--- NOTE | 2018-05-22 17:12 | NUR ---
PT REQUESTED WARM BLANKET AND EXTRA PILLOW, PT STATED PAIN IS AT A 2 AND ONLY WORSE WHEN HE GETS UP. ADMINISTERED PRN PAIN MEDICATION TO PT. FAMILY AT BEDSIDE, CONTINUE WITH PLAN OF CARE
[2018-05-23 04:39] VITALS: BP 153/83
[2018-05-23 06:45] LABS: ALBUMIN 3.1 g/dL (3.4-5.0); ALKALINE PHOSPHATASE 57 U/L (46-116); ALT (SGPT) 13 U/L (10-68); BILIRUBIN - TOTAL 0.74 mg/dL (0.2-1.3); CALC OSMOLALITY 286 mosm/kg (275-300); CALCIUM 8.5 mg/dL (8.5-10.1); CARBON DIOXIDE 26.5 mmol/L (21.0-32.0); CHLORIDE - SERUM 106 mmol/L (98-107); GLUCOSE 105 mg/dL (74-106); POTASSIUM - SERUM 3.6 mmol/L (3.5-5.1); PROTEIN - SERUM 6.6 g/dL (6.4-8.2); SODIUM 143 mmol/L (136-145); UREA NITROGEN 17 mg/dL (7-18); eGFR NON AFRICAN AMERICAN 75 mL/min (90-120)
[2018-05-23 06:48] LABS: BASOPHILS 0.3 % (0-2); EOSINOPHILS 4.8 % (0-7); HEMATOCRIT 41.9 % (42.0-54.0); HEMOGLOBIN 13.9 g/dL (13.5-17.5); IMMATURE GRANULOCYTES 0.1 % (0-5); LYMPHOCYTES 17.5 % (15-50); MCH 31.7 pg (26.0-34.0); MCHC 33.2 g/dL (31.0-37.0); MCV 95.7 fL (80.0-100.0); MEAN PLATELET VOLUME 11.6 fL (7.4-10.4); MONOCYTES 10.1 % (2-11); NEUTROPHILS 67.2 % (40-80); PLATELET COUNT 144 10x3/uL (130-400); RBC 4.38 10x6/uL (4.20-6.10); RDW 12.7 % (11.5-14.5)
[2018-05-23 08:39] VITALS: BP 159/91
--- NOTE | 2018-05-23 10:24 | NUR ---
RECEIVED VIA WHEELCHAIR AND ON ROOM AIR TO ROOM FROM MED/SURG. PLACED ON HIGH FLOW 1.5 L NC. HEPARIN INFUSING TO LEFT HAND AT 13 CC/HR. GLASSES ON. INSTRUCTED TO PLEASE USE CALL LIGHT FOR ALL NEEDS. BILATERAL BRUISING (HEALING) TO BILATERAL BREAST AREA.
--- NOTE | 2018-05-23 10:39 | NUR ---
WHILE REVIEWING PTT I SEE THE LAB VALUE FROM 0410 IS 129.5, STAT LAB PTT NEEDS TO BE DRAWN.
--- NOTE | 2018-05-23 11:29 | NUR ---
I CALLED TO SEE IF RESULTS OF PTT IS DONE YET, I WAS TOLD IT WAS "ON THE MACHINE". WILL CONTINUE TO WAIT ON RESULTS.
--- NOTE | 2018-05-23 11:45 | NUR ---
PTT RESULTS ARE BACK 125.3. HEPARIN DOSE IS PAUSED X 30 MIN. WILL LOWER DOSE BY 200 U (2 CC) IN 30 MIN AND THEN REDRAW AT SCHEDULED TIME.
--- NOTE | 2018-05-23 12:19 | NUR ---
1215-RESTARTED HEPARING DRIP AT 11 CC/HR. ORDERED REDRAW OF PTT FOR 1814.
--- NOTE | 2018-05-23 12:45 | NUR ---
PATIENT IS SITTING ON SIDE OF BED EATING LUNCH. STATES THAT HE FEELS MUCH BETTER NOW.
--- NOTE | 2018-05-23 14:54 | NUR ---
CALLED TO ROOM WITH PATIENT HAVING IV PULLED OUT AND BLEEDING. CATH TIP INTACT. RE-SITED TO LEFT FA WITH 22 G X 1 STICK.
[2018-05-23 19:11] VITALS: BP 159/88
--- NOTE | 2018-05-23 19:21 | NUR ---
PT IN BED DENIES NEEDS AT THIS TIME.
--- NOTE | 2018-05-23 20:49 | NUR ---
PTT 69.9. NO CHANGE PER PROTOCOL. PTT ORDERED WITH AM LAB.
[2018-05-23 22:27] VITALS: BP 166/91
[2018-05-24 02:16] VITALS: BP 161/95
--- NOTE | 2018-05-24 02:36 | NUR ---
PT ASLEEP, HEPARIN INFUSING AT 11 ORDERED. PT HAS NO S/S OF DISTRESS. RESP EVEN AND UNLABORED. BEDLOW AND CALLIGHT IN REACH. WILL CPOC
[2018-05-24 05:19] LABS: BASOPHILS 0.3 % (0-2); EOSINOPHILS 3.9 % (0-7); HEMATOCRIT 42.5 % (42.0-54.0); HEMOGLOBIN 14.2 g/dL (13.5-17.5); MCH 31.7 pg (26.0-34.0); MCHC 33.4 g/dL (31.0-37.0); MCV 94.9 fL (80.0-100.0); NEUTROPHILS 66.8 % (40-80); PLATELET COUNT 139 10x3/uL (130-400); RBC 4.48 10x6/uL (4.20-6.10); RDW 12.7 % (11.5-14.5); WBC 6.2 10x3/uL (4.8-10.8)
[2018-05-24 05:39] LABS: ALBUMIN 3.2 g/dL (3.4-5.0); ALKALINE PHOSPHATASE 62 U/L (46-116); ALT (SGPT) 12 U/L (10-68); CALC OSMOLALITY 283 mosm/kg (275-300); CALCIUM 8.5 mg/dL (8.5-10.1); CARBON DIOXIDE 27.6 mmol/L (21.0-32.0); CHLORIDE - SERUM 104 mmol/L (98-107); CREATININE - SERUM 0.8 mg/dL (0.6-1.3); GLUCOSE 117 mg/dL (74-106); POTASSIUM - SERUM 3.7 mmol/L (3.5-5.1); SODIUM 142 mmol/L (136-145); eGFR NON AFRICAN AMERICAN > 90 mL/min (90-120)
[2018-05-24 05:44] VITALS: BP 167/85
[2018-05-24 05:46] LABS: UREA NITROGEN 12 mg/dL (7-18)
--- NOTE | 2018-05-24 07:03 | NUR ---
PT EMERGENCY LIGHT ON. ASSISTED PT FROM BATHROOM BACK TO BED. PT DENIES PAIN AT THIS TIME. PT C/O CONSTIPATION. STATES HE NEEDS A LAXATIVE. INFORMED PT THAT I WOULD SEE IF I COULD GET HIM SOMETHING. NO OTHER CONCERNS AT THIS TIME. BED LOWERED AND LOCKED. CL IN REACH. WILL CPOC
[2018-05-24 08:41] VITALS: BP 156/90
--- NOTE | 2018-05-24 09:05 | NUR ---
PT GIVEN JUICE MIXTURE OF PRUNE JUICE AND SPRITE BY STUDENT NURSE FOR CONSTIPATION. VITALS STABLE. MEDS GIVEN MY STUDENT NURSE AND INSTRUCTOR. STUDENT REPROTED THAT MEDS WERE GIVEN WITHOUT DIFFICULTY. NO FUTHER CONCERNS AT THIS TIME. BED LOWERED AND LOCKED. CL IN REACH. WILL CPOC.
--- NOTE | 2018-05-24 09:26 | NUR ---
PT HAD A LARGE BROWN SEMI-SOLID BOWEL MOVEMENT. POC SUCESSFUL
--- NOTE | 2018-05-24 11:11 | NUR ---
ALERT AND ORIENTED X 4 UP AD JASPER. 1.5 L OF O2 PER NASAL CANNULA. BREATH SOUNDS ARE DIMINISHED. HEPARIN INFUSING. PATIENT WITH NO COMPLAINTS AT THIS TIME. I CONQUER WITH THE LPNS ASSESSMENT.
[2018-05-24 12:04] VITALS: BP 133/78
[2018-05-24 17:52] VITALS: BP 121/91
--- NOTE | 2018-05-24 18:47 | NUR ---
IV TO L FOREARM INFILTRATED. IV REMOVED. TIP INTACT. NEW IV TO R FOREARM SITED 22G, PATENT, DRSG C/D/I. HEPARIN AT 10 CC/HOUR.
--- NOTE | 2018-05-24 19:10 | NUR ---
1909- LAB APTT WAS 34.1 PER PROTOCOL A BOLUS OF HEPARIN 3000 UNITS WAS GIVEN AND THE RATE INCREASE BY 200 UNITS/HR. THE UNITS PER HR WAS INCREASE FROM 10 TO 12 UNITS/HR. WILL CONTINUE TO MONITOR PT NAD FOLLOW PLAN OF CARE. CALL LIGHT IN REACH
--- NOTE | 2018-05-24 21:15 | NUR ---
RESUMING PT CARE. PT ALERT LAYING IN BED WATCHING TV. NO C/O VOICED AT THIS TIME. RESPIRATIONS EVEN AND UNLABORED. BED IN LOW POSITION WITH CALL LIGHT IN REACH. WILL CONTINUE TO MONITOR PT AND FOLLOW PLAN OF CARE.
[2018-05-24 22:04] VITALS: BP 171/73
[2018-05-25 01:17] VITALS: BP 153/89
[2018-05-25 04:00] LABS: BASOPHILS 0.3 % (0-2); EOSINOPHILS 4.3 % (0-7); HEMATOCRIT 39.9 % (42.0-54.0); HEMOGLOBIN 13.4 g/dL (13.5-17.5); IMMATURE GRANULOCYTES 0.2 % (0-5); LYMPHOCYTES 20.8 % (15-50); MCH 31.7 pg (26.0-34.0); MCHC 33.6 g/dL (31.0-37.0); MCV 94.3 fL (80.0-100.0); MEAN PLATELET VOLUME 10.7 fL (7.4-10.4); MONOCYTES 10.2 % (2-11); NEUTROPHILS 64.2 % (40-80); PLATELET COUNT 144 10x3/uL (130-400); RBC 4.23 10x6/uL (4.20-6.10); RDW 12.7 % (11.5-14.5); WBC 6.1 10x3/uL (4.8-10.8)
[2018-05-25 04:11] LABS: ALBUMIN 2.9 g/dL (3.4-5.0); ALKALINE PHOSPHATASE 60 U/L (46-116); BILIRUBIN - TOTAL 0.67 mg/dL (0.2-1.3); CALC OSMOLALITY 280 mosm/kg (275-300); CALCIUM 8.4 mg/dL (8.5-10.1); CARBON DIOXIDE 28.7 mmol/L (21.0-32.0); CHLORIDE - SERUM 102 mmol/L (98-107); CREATININE - SERUM 0.8 mg/dL (0.6-1.3); GLUCOSE 121 mg/dL (74-106); POTASSIUM - SERUM 3.7 mmol/L (3.5-5.1); PROTEIN - SERUM 6.5 g/dL (6.4-8.2); SODIUM 141 mmol/L (136-145); UREA NITROGEN 11 mg/dL (7-18); eGFR NON AFRICAN AMERICAN > 90 mL/min (90-120)
[2018-05-25 04:16] LABS: ALT (SGPT) 20 U/L (10-68)
--- NOTE | 2018-05-25 04:44 | NUR ---
0347 APTT WAS 99.3 PER PROTOCOL NO BOLUS WAS GIVEN. INFUSION WAS HELD FOR 30 MINS. HEPARIN WAS DECREASE FROM 12 UNITS/HR TO 11 UNITS/HR. WILL CONTINUE TO MONITOR PT AND FOLLOW PLAN OF CARE.
--- NOTE | 2018-05-25 04:49 | NUR ---
PT STATES THAT HE SAW A LOT OF BLOOD IN HIS URINE WHEN HE WENT TO BATHROOM. PT STATES HE FLUSHED THE TOLIET. I ASK PT TO PLEASE NOT FLUSH TOLIET AFTER HE URINATES SO A NURSE CAN SEE HOW MUCH BLOOD IS IN HIS URINE. PT STATES UNDERSTANDING. WILL CONTINUE TO MONITOR PT AND FOLLOW PLAN OF CARE.
[2018-05-25 06:15] VITALS: BP 153/78
--- NOTE | 2018-05-25 07:04 | NUR ---
PT FAMILY CAME TO DESK AND REPORTED THAT PT HAD BLOOD IN HIS URINE. PT DOES HAVE BLOOD. BLOOD WAS BRIGHT RED. REPORTED TO NEXT SHIFT NURSE.
[2018-05-25 08:33] VITALS: BP 138/69
--- NOTE | 2018-05-25 09:25 | NUR ---
RESP UL ON FLOW. IV PATENT. CALL LIGHT IN REACH. WILL CONT. PLAN OF CARE.
--- NOTE | 2018-05-25 09:35 | NUR ---
ASSESSMENT DONE. DENIES NEEDS.
[2018-05-25 10:59] LABS: APPEARANCE CLOUDY (CLEAR); COLOR DK YELLOW (YELLOW)
[2018-05-25 11:00] LABS: BILIRUBIN NEGATIVE (NEGATIVE); EPITHELIAL CELLS 0-5 /hpf (0-5); GLUCOSE 1000 mg/dL (NEGATIVE); KETONE NEGATIVE (NEGATIVE); NITRITE NEGATIVE (NEGATIVE); PROTEIN NEGATIVE (NEGATIVE); RED CELLS - URINE >50 /hpf (0-5); UROBILINOGEN NORMAL (NORMAL); WHITE CELLS - URINE 0-5 /hpf (0-5)
[2018-05-25 11:01] LABS: BACTERIA FEW /hpf (NONE SEEN)
[2018-05-25 11:47] VITALS: BP 142/76
--- NOTE | 2018-05-25 12:45 | NUR ---
AGREE WITH ASSESMENT.
[2018-05-25 14:18] LABS: PSA - % FREE 6.9 % (()); PSA - FREE 0.51 ng/mL; PSA - TOTAL 7.4 ng/mL (0.0-4.0)
[2018-05-25 14:30] VITALS: BMI 27.2
[2018-05-25 15:01] VITALS: BP 143/57
[2018-05-25 17:52] VITALS: Ht 182.9 cm; Wt 78.8 kg
[2018-05-25 20:00] VITALS: BP 156/84
--- NOTE | 2018-05-25 20:40 | NUR ---
RESUMING PT CARE. PT IS ALERT LAYING IN BED. FAMILY IS AT BEDSIDE. NO C/O VOICED AT THIS TIME. RESP EVEN AND UNLABORED. BED IN LOW POSITION WITH CALL LIGHT IN REACH. WILL CONTINUE TO MONITOR PT AND FOLLOW PLAN OF CARE.
[2018-05-26] VITALS (7 sets, daily range): BP systolic 130–155; BP diastolic 65–100
--- NOTE | 2018-05-26 00:24 | NUR ---
PT HAS BEEN ASKING FOR PAIN MED NORCO 2 HOURS BEFORE MEDS ARE DUE. I EXPLAINED IT IS A PRN MED NOT A SCHEDULE MED.
--- NOTE | 2018-05-26 04:00 | NUR ---
COMMERCIAL LENDER AT BEDSIDE TO OBTAIN VITALS, CALL LIGHT IN REACH. WILL CONTINUE WITH PLAN OF CARE.
--- NOTE | 2018-05-26 04:27 | NUR ---
PT IS STILL ASKING FOR NORCO BEFORE TIME. WAS EXPLAINED IT WAS A PRN MED NOT A SCHEDULE TIME MED.
[2018-05-26 05:23] LABS: ALBUMIN 3.1 g/dL (3.4-5.0); ALKALINE PHOSPHATASE 65 U/L (46-116); BILIRUBIN - TOTAL 0.71 mg/dL (0.2-1.3); CALC OSMOLALITY 280 mosm/kg (275-300); CALCIUM 8.6 mg/dL (8.5-10.1); CARBON DIOXIDE 29.5 mmol/L (21.0-32.0); CHLORIDE - SERUM 105 mmol/L (98-107); CREATININE - SERUM 0.8 mg/dL (0.6-1.3); GLUCOSE 117 mg/dL (74-106); POTASSIUM - SERUM 3.6 mmol/L (3.5-5.1); PROTEIN - SERUM 6.6 g/dL (6.4-8.2); SODIUM 141 mmol/L (136-145); UREA NITROGEN 11 mg/dL (7-18); eGFR NON AFRICAN AMERICAN > 90 mL/min (90-120)
[2018-05-26 05:28] LABS: ALT (SGPT) 32 U/L (10-68)
[2018-05-26 05:38] LABS: HEMATOCRIT 41.2 % (42.0-54.0); HEMOGLOBIN 13.9 g/dL (13.5-17.5); LYMPHOCYTES 23.5 % (15-50); MCH 31.7 pg (26.0-34.0); MCHC 33.7 g/dL (31.0-37.0); MCV 93.8 fL (80.0-100.0); MEAN PLATELET VOLUME 10.8 fL (7.4-10.4); NEUTROPHILS 62.9 % (40-80); PLATELET COUNT 134 10x3/uL (130-400); RBC 4.39 10x6/uL (4.20-6.10); RDW 12.4 % (11.5-14.5); WBC 5.7 10x3/uL (4.8-10.8)
--- NOTE | 2018-05-26 08:30 | NUR ---
PT RESTING IN BED. SON AT BEDSIDE. NO S/S OF ACUTE DISTRESS. CL IN PLACE.
[2018-05-26] MEDS ORDERED: REQUIP0.25 MG PO (14:16)
--- NOTE | 2018-05-26 14:16 | NUR ---
PT CO OF COUGH AND RESTARTING REQUIP. SPOKE WITH STEPHANIE PULIDO AND TO TO START REQUIP 0.25MG 1 TAB QHS. TESSALON PERRL 100MG 1 TAB PO TID. PT WALKED 4X AROUND NURSE'S STATION TODAY. NO S/S OF ACUTE DISTRESS. CL IN PLACE.
--- NOTE | 2018-05-26 18:16 | NUR ---
PT SITTING UP IN BED TALKING WITH DAUGHTER ON PHONE. NO S/S OF ACUTE DISTRESS. CL IN PLACE.
--- NOTE | 2018-05-26 20:30 | NUR ---
RESUMING PT CARE. PT ALERT LAYING IN BED. NO C/O VOICED AT THIS TIME. NO S/S OF DISTRESS. FAMILY IS AT BEDTIME. BED IN LOW POSITION WITH CALL LIGHT IN REACH. WILL CONTINUE TO MONITOR PT AND FOLLOW PLAN OF CARE.
[2018-05-27 03:09] LABS: LUPUS - INTERPRETATION Comment: (()); LUPUS - THROMBIN NEUT 17.1 sec (0.0-23.0); LUPUS - THROMBIN TIME 106.4 sec (0.0-23.0); LUPUS - THROMBIN TIME MIX 65.5 sec (0.0-23.0); LUPUS - dRVVT 30.7 sec (0.0-47.0)
[2018-05-27 03:55] VITALS: BP 145/58
--- NOTE | 2018-05-27 04:25 | NUR ---
I AGREE WITH PRIOR ASSESSMENT.
[2018-05-27 05:09] LABS: BASOPHILS 0.6 % (0-2); EOSINOPHILS 4.5 % (0-7); HEMATOCRIT 41.6 % (42.0-54.0); HEMOGLOBIN 13.7 g/dL (13.5-17.5); IMMATURE GRANULOCYTES 0.6 % (0-5); LYMPHOCYTES 18.8 % (15-50); MCH 31.1 pg (26.0-34.0); MCHC 32.9 g/dL (31.0-37.0); MCV 94.5 fL (80.0-100.0); MEAN PLATELET VOLUME 11.2 fL (7.4-10.4); MONOCYTES 12.7 % (2-11); NEUTROPHILS 62.8 % (40-80); PLATELET COUNT 154 10x3/uL (130-400); RDW 12.8 % (11.5-14.5); WBC 6.4 10x3/uL (4.8-10.8)
[2018-05-27 05:53] LABS: ALBUMIN 3.2 g/dL (3.4-5.0); ALKALINE PHOSPHATASE 76 U/L (46-116); ALT (SGPT) 39 U/L (10-68); BILIRUBIN - TOTAL 0.55 mg/dL (0.2-1.3); CALC OSMOLALITY 286 mosm/kg (275-300); CALCIUM 8.8 mg/dL (8.5-10.1); CHLORIDE - SERUM 105 mmol/L (98-107); CREATININE - SERUM 0.9 mg/dL (0.6-1.3); GLUCOSE 117 mg/dL (74-106); PROTEIN - SERUM 6.5 g/dL (6.4-8.2); SODIUM 144 mmol/L (136-145); UREA NITROGEN 11 mg/dL (7-18); eGFR NON AFRICAN AMERICAN 85 mL/min (90-120)
[2018-05-27 06:02] LABS: POTASSIUM - SERUM 4.6 mmol/L (3.5-5.1)
--- NOTE | 2018-05-27 08:22 | NUR ---
PT RESTING IN BED. GRANDDAUGHTER AT BEDSIDE. NO S/S OF ACUTE DISTRESS. CL IN PLACE.
[2018-05-27 09:17] VITALS: BP 162/88
[2018-05-27 11:12] VITALS: BP 131/61
--- NOTE | 2018-05-27 19:28 | NUR ---
PT RESTING IN BED. REPOSITIONED PILLOW AND ASSITED PT GETTING COMFORTABLE IN BED. NO S/S OF ACUTE DISTRESS. CL IN PLACE.
[2018-05-27 20:10] VITALS: BP 136/67
--- NOTE | 2018-05-27 21:30 | NUR ---
BEDTIME MEDS GIVEN. PT INSTRUCTED ON CONTINUING TO USE PILLOW FOR SPLINTING CHEST WITH COUGHING TO DECREASE PAIN. REQUESTED PAIN PILL GIVEN AT THIS TIME. MONITOR AND CPOC.
[2018-05-27 23:55] VITALS: BP 150/90
[2018-05-28 03:55] VITALS: BP 142/70
[2018-05-28 04:46] LABS: BASOPHILS 0.6 % (0-2); EOSINOPHILS 4.9 % (0-7); HEMATOCRIT 43.2 % (42.0-54.0); HEMOGLOBIN 14.2 g/dL (13.5-17.5); IMMATURE GRANULOCYTES 0.7 % (0-5); LYMPHOCYTES 24.2 % (15-50); MCH 31.5 pg (26.0-34.0); MCHC 32.9 g/dL (31.0-37.0); MCV 95.8 fL (80.0-100.0); MEAN PLATELET VOLUME 11.5 fL (7.4-10.4); MONOCYTES 11.7 % (2-11); NEUTROPHILS 57.9 % (40-80); PLATELET COUNT 158 10x3/uL (130-400); RBC 4.51 10x6/uL (4.20-6.10); WBC 6.9 10x3/uL (4.8-10.8)
[2018-05-28 05:07] LABS: ALBUMIN 3.3 g/dL (3.4-5.0); ALKALINE PHOSPHATASE 81 U/L (46-116); ALT (SGPT) 38 U/L (10-68); BILIRUBIN - TOTAL 0.58 mg/dL (0.2-1.3); CALC OSMOLALITY 283 mosm/kg (275-300); CALCIUM 8.9 mg/dL (8.5-10.1); CARBON DIOXIDE 30.1 mmol/L (21.0-32.0); CHLORIDE - SERUM 105 mmol/L (98-107); GLUCOSE 119 mg/dL (74-106); POTASSIUM - SERUM 4.7 mmol/L (3.5-5.1); PROTEIN - SERUM 6.6 g/dL (6.4-8.2); SODIUM 142 mmol/L (136-145); UREA NITROGEN 13 mg/dL (7-18); eGFR NON AFRICAN AMERICAN 75 mL/min (90-120)
--- NOTE | 2018-05-28 05:41 | NUR ---
ADMINISTERED NORCO AT 0428 FOR LEG PAIN. PT NOW SLIGHTLY MORE COMFORTABLE. MONITOR AND CPOC. EMPTIED URINAL AND INSTRUCTED PT THAT HIS URINE IS VERY DARK SO HE NEEDS TO INCREASE HIS FLUID INTAKE. PLASMALYTE @ 30ML/HR INFUSING. MONITOR AND CPOC.
--- NOTE | 2018-05-28 07:00 | NUR ---
RECEIVED BEDSIDE REPORT. ASSUMED CARE OF PATIENT. PATIENT SITTING UP IN BED, FAMILY AT BEDSIDE. CALL LIGHT WITHIN REACH. PATIENT DENIES NEEDS AT THIS TIME. PERSONAL BELONGINGS BAGS PROVIDED TO THE FAMILY UPON REQUEST AT THIS TIME PATIENT IS SUPPOSED TO BE DISCHARGED.
[2018-05-28 08:50] VITALS: BP 134/67
--- NOTE | 2018-05-28 12:00 | NUR ---
SITTING TO CHAIR AT BEDSIDE. NO DISTRESS. FAMILY AT BEDSIDE AWAITING TO SEE IF PATIENT WILL DISCHARGE TODAY.
[2018-05-28 12:21] VITALS: BP 156/84
--- NOTE | 2018-05-28 13:20 | NUR ---
TELEMETRY APPLIED ORDERED.
--- NOTE | 2018-05-28 14:05 | NUR ---
SPOKE WITH WILL FROM [employer] REGARDING PACEMAKER INTERIGATION. PACEMAKER IS FUNCTIONING NORMALLY, HOWEVER DUE TO PATIENT HAVING PVC'S AND THEN THE PACEMAKER SPIKING, NOT ALL BEATS ARE BEING CAPTURED NOR CAN BE FELT WITH PALPATING A PULSE. WILL STATED THAT WE ARE PROBABLY GETTING READINGS OF 45-50 ON ELECTRONIC BP CUFFS AND O2 SENSORS AND THIS NEON ELECTRICIAN CONFIRMED THAT WE ARE RECEIVING LOW HR READINGS IN THE 50'S AND PALPATED A PULSE OF 73 THIS AM. WILL ASSURED THAT THE PACEMAKE IS FUNCTIONING PROPERLY AND THAT THE HEARTRATE IS IN THE 90'S, AND HAS BEEN IN THE 90'S PROGRAMMED. THANKED MONIQUE FOR CALLING AND EXPLAINING. [employer] INTEROGATION REPORT SCANNED TO PATEINT CHART.
[2018-05-28] MEDS ORDERED: ELIQUIS5 MG PO (14:11)
--- NOTE | 2018-05-28 15:39 | NUR ---
1515 22 GAUGE IV REMOVED FROM RIGHT WRIST. CATHETER TIP INTACT. NO BLEEDING FROM SITE. 2X2 GAUZE APPLIED AND SECURED WITH BANDAID. TOLERATED IV REMOVAL WELL. 1530 COMPLETED PROVIDING DISCHARGE INSTRUCTIONS TO PATIENT AND HIS DAUGHTER. FAMILY AND PATIENT VERBALIZED UNDERSTANDING OF ALL INSTRUCTIONS PROVIDED AND AGREED PATIENT SHOULD NOT DRIVE UNTIL CLEARED BY HIS PCP. HARD SCRIPT FOR NOBOTCO PROVIDED WELL AND COPY PLACED WITH CHART COPY OF DISCHARGE INSTRUCTIONS. 1535 PATIENT LEFT UNIT VIA WHEELCHAIR WITH ALL PERSONAL BELONGINGS. PATIENT DISCHARGED TO HOME WITH FAMILY VIA PRIVATE VEHICLE. NO DISTRESS UPON LEAVING UNIT.
--- NOTE | 2018-05-28 15:42 | MORECARE ---
CASE MANAGEMENT DISCHARGE SUMMARY PATIENT: JAVIER PENNY UNIT: [id number] ADM DATE: 05/21/18 AGE: 87 : 32 SEX: M ROOM/BED: D.2107 AUTHOR: GONZÁLEZ OLVERA PHYSICIAN: REFERRING PHYSICIAN: CARLOS RODRIGUEZ MD DATE OF SERVICE: 05/28/18 Discharge Plan Patient Name: JAVIER PENNY Facility: [facility]:[place] : 1930 Planned Disposition: Home Anticipated Discharge Date: 05/28/18 Discharge Date: Expected LOS: 7 Initial Reviewer: [email or web address] Initial Review Date: 05/28/2018 Generated: 05/28/18 4:42 pm DCPIA - Discharge Planning Initial Assessment Updated by [email or web address]: Sonal Vega on 05/28/18 3:41 pm * Is the patient Alert and Oriented? Yes * PCP TARIQ * Pharmacy [facility] * Preadmission Environment Home with Family * ADLs Independent * List name and contact numbers for known caregivers / representatives who currently or will assist patient after discharge: TANNER BLISS, * Verbal permission to speak to the caregivers and representatives has been obtained from the patient. Yes * Additional services required to return to the preadmission environment? No * Can the patient safely return to the preadmission environment? Yes * Has this patient been hospitalized within the prior 30 days at any hospital? Yes Coverage Notice Reviewer: [id number] - Sonal Vega Notice Issued Date-Time: 05/28/2018 15:38 Notice Type: IM Discharge Notice Notice Delivered To: Patient Relationship to Patient: Self Watch Parts Grinder Name: Delivery Method: HAND - Hand Delivered Olivia Days: Prior Verbal Notification: Recipient Understood Notice: Yes Recipient Signature: Yes Med Rec Note Co-signed by Attending: Coverage Notice Comment: Patient Name: JAVIER PENNY Page [phone] at 1542 All edits/amendments must be made on the electronic document DICTATION DATE: 05/28/181540 POWERTRAIN DESIGN ENGINEER: RICHIE 05/28/181540 RPT#: [id number] DC DATE: STATUS: ADM IN [facility] [address] [place] [address] END OF REPORT
--- NOTE | 2018-05-28 15:49 | MORECARE ---
CASE MANAGEMENT DISCHARGE SUMMARY PATIENT: JAVIER PENNY UNIT: [id number] ADM DATE: 05/21/18 AGE: 87 : 32 SEX: M ROOM/BED: D.2103 AUTHOR: WADE,DOC PHYSICIAN: REFERRING PHYSICIAN: CRALOS RODRIGUEZ MD DATE OF SERVICE: 05/28/18 Discharge Plan Patient Name: JAVIER PENNY Facility: [facility]:[place] : 1930 Planned Disposition: Home Anticipated Discharge Date: 05/28/18 Discharge Date: 05/28/2018 Expected LOS: 7 Initial Reviewer: [email or web address] Initial Review Date: 05/28/2018 Generated: 05/28/18 4:49 pm Comments DCP- Discharge Planning Updated by [email or web address]: Sonal Vega on 05/28/18 2:[address] Patient Name: JAVIER PENNY Admission Status: ER Accout number: [id number] Admission Date: 05-21-2018 : 1930 Admission Diagnosis:OTHER PULMONARY EMBOLISM WITHOUT ACUTE COR PULMONALE Attending: CARLOS RODRIGUEZ Current LOS: 7 Anticipated DC Date: 05-28-2018 Planned Disposition: Home Primary Insurance: MEDICARE A & B Discharge Planning Comments: CM MET WITH PATIENT AND FAMILY ABOUT DC PLANNING/NEEDS. PATIENT STATES NO NEEDS AT THIS TIME, HE HAS PLENTY OF FAMILY TO HELP HIM AT HOME. STATES IF HE DECIDES HE WANTS HH HE WILL CALL HIS PCP. CM WILL FOLLOW AND ASSIST NEEDED WITH DC PLANNING/NEEDS. IM SERVED. Revenue Cycle Specialist: Sonal Vega DCPIA - Discharge Planning Initial Assessment Updated by [id number]: Sonal Vega on 05/28/18 3:41 pm * Is the patient Alert and Oriented? Yes * PCP TARIQ * Pharmacy [facility] * Preadmission Environment Home with Family * ADLs Independent * List name and contact numbers for known caregivers / representatives who currently or will assist patient after discharge: TANNER BLISS, * Verbal permission to speak to the caregivers and representatives has been obtained from the patient. Yes * Additional services required to return to the preadmission environment? No * Can the patient safely return to the preadmission environment? Yes * Has this patient been hospitalized within the prior 30 days at any hospital? Yes Coverage Notice Reviewer: [email or web address] - Sonal Vega Notice Issued Date-Time: 05/28/2018 15:38 Notice Type: IM Discharge Notice Notice Delivered To: Patient Relationship to Patient: Self Ornamental Metal Fabricator Apprentice Name: Delivery Method: HAND - Hand Delivered Olivia Days: Prior Verbal Notification: Recipient Understood Notice: Yes Recipient Signature: Yes Med Rec Note Co-signed by Attending: Coverage Notice Comment: Last DP export: 05/28/18 2:42 p Patient Name: JAVIER PENNY Page 55047 at 1549 All edits/amendments must be made on the electronic document DICTATION DATE: 05/28/18 1548 CONTINUOUS PROCESS ROTARY DRUM TANNER: RICHIE 05/28/18 1548 RPT#: [id number] DC DATE:05/28/18 STATUS: DIS IN [facility] [address] [place] [address] END OF REPORT
--- NOTE | 2018-05-29 09:22 | MORECARE ---
CASE MANAGEMENT DISCHARGE SUMMARY PATIENT: JAVIER PENNY UNIT: [id number] ADM DATE: 05/21/18 AGE: 87 : 32 SEX: M ROOM/BED: D.210 AUTHOR: WADEDOC PHYSICIAN: REFERRING PHYSICIAN: CARLOS RODRIGUEZ MD DATE OF SERVICE: 05/29/18 Discharge Plan Patient Name: JAVIER PENNY Facility: [facility]:[place] : 1930 Planned Disposition: Home Anticipated Discharge Date: 05/28/18 Discharge Date: 05/28/2018 Expected LOS: 7 Initial Reviewer: [email or web address] Initial Review Date: 05/28/2018 Generated: 05/29/18 10:22 am Comments DCP- Discharge Planning Updated by [email or web address]: Sonal Vega on 05/28/18 2:[address] Patient Name: JAVIER PENNY Admission Status: ER Accout number: [id number] Admission Date: 05-21-2018 : 1930 Admission Diagnosis:OTHER PULMONARY EMBOLISM WITHOUT ACUTE COR PULMONALE Attending: CARLOS RODRIGUEZ Current LOS: 7 Anticipated DC Date: 05-28-2018 Planned Disposition: Home Primary Insurance: MEDICARE A & B Discharge Planning Comments: CM MET WITH PATIENT AND FAMILY ABOUT DC PLANNING/NEEDS. PATIENT STATES NO NEEDS AT THIS TIME, HE HAS PLENTY OF FAMILY TO HELP HIM AT HOME. STATES IF HE DECIDES HE WANTS HH HE WILL CALL HIS PCP. CM WILL FOLLOW AND ASSIST NEEDED WITH DC PLANNING/NEEDS. IM SERVED. Welt Slasher: Sonal Vega DCPIA - Discharge Planning Initial Assessment Updated by [id number]: Sonal Vega on 05/28/18 3:41 pm * Is the patient Alert and Oriented? Yes * PCP TARIQ * Pharmacy [facility] * Preadmission Environment Home with Family * ADLs Independent * List name and contact numbers for known caregivers / representatives who currently or will assist patient after discharge: TANNER BLISS, * Verbal permission to speak to the caregivers and representatives has been obtained from the patient. Yes * Additional services required to return to the preadmission environment? No * Can the patient safely return to the preadmission environment? Yes * Has this patient been hospitalized within the prior 30 days at any hospital? Yes Coverage Notice Reviewer: [id number] - Sonal Vega Notice Issued Date-Time: 05/28/2018 15:38 Notice Type: IM Discharge Notice Notice Delivered To: Patient Relationship to Patient: Self Automatic Machines Supervisor Name: Delivery Method: HAND - Hand Delivered Olivia Days: Prior Verbal Notification: Recipient Understood Notice: Yes Recipient Signature: Yes Med Rec Note Co-signed by Attending: Coverage Notice Comment: Last DP export: 05/28/18 2:49 p Patient Name: JAVIER PENNY Page [phone] at 0922 All edits/amendments must be made on the electronic document DICTATION DATE: 05/29/18920 WORD PROCESSOR OPERATOR: RICHIE 05/29/18920 RPT#: [id number] DC DATE:05/28/18 STATUS: DIS IN [facility] [address] [place] [address] END OF REPORT
[2018-05-30 18:08] LABS: FACTOR II DNA ANALYSIS Negative (())
== END 2018-05-28 15:38 | disposition home or self-care (01) | DRG 175 ==
LOC: D.ER 16:54 → D.MS 22:45 → D.M2 22:45
PROVIDERS: Family Medicine; Internal Medicine Hematology & Oncology; ADMIT Internal Medicine Nephrology
DX: I26.99 Other pulmonary embolism without acute cor pulmonale (principal); J96.01 Acute respiratory failure with hypoxia; S22.20XD Unspecified fracture of sternum, subsequent encounter for fracture with routine healing; S27.321D Contusion of lung, unilateral, subsequent encounter; I10 Essential (primary) hypertension; Z95.0 Presence of cardiac pacemaker; R54 Age-related physical debility; C61 Malignant neoplasm of prostate; N20.0 Calculus of kidney

== ENCOUNTER 2018-05-31 20:03 | Inpatient (IN) | payer MEDICARE, BC ==
[~2018-05-31] VITALS: Ht 182.9 cm; Wt 89.3 kg
[~2018-05-31 20:03] MED LIST changes: +ELIQUIS5 MG PO; +HYDROCODON-ACE1 EAC7 PO; +LEXAPRO20 MG PO; +NORVASC5 MG PO; +REQUIP0.25 MG PO
--- NOTE | 2018-05-31 20:30 | NUR ---
PT'S PACEMAKER INTERROGATED AND SENT TO [employer].
[2018-05-31 20:40] LABS: BASOPHILS 0.2 % (0-2); EOSINOPHILS 2.9 % (0-7); HEMATOCRIT 43.1 % (42.0-54.0); HEMOGLOBIN 14.2 g/dL (13.5-17.5); IMMATURE GRANULOCYTES 0.3 % (0-5); LYMPHOCYTES 21.3 % (15-50); MCH 31.5 pg (26.0-34.0); MCHC 32.9 g/dL (31.0-37.0); MCV 95.6 fL (80.0-100.0); MEAN PLATELET VOLUME 11.3 fL (7.4-10.4); MONOCYTES 6.8 % (2-11); NEUTROPHILS 68.5 % (40-80); PLATELET COUNT 173 10x3/uL (130-400); RBC 4.51 10x6/uL (4.20-6.10); RDW 13.1 % (11.5-14.5); WBC 6.3 10x3/uL (4.8-10.8)
--- NOTE | 2018-05-31 20:49 | NUR ---
SPOKE WITH [employer], STATE PT'S PACEMAKER APPEARS TO BE DOING GREAT AND HAS 9 YEARS LEFT ON BATTERY.
[2018-05-31 20:59] LABS: INR 1.15 (0.85-1.17); PROTIME 14.2 SECONDS (11.6-15.0)
[2018-05-31 21:06] LABS: ALBUMIN 3.3 g/dL (3.4-5.0); ALKALINE PHOSPHATASE 113 U/L (46-116); ALT (SGPT) 22 U/L (10-68); BILIRUBIN - TOTAL 0.49 mg/dL (0.2-1.3); CALC OSMOLALITY 287 mosm/kg (275-300); CALCIUM 8.5 mg/dL (8.5-10.1); CARBON DIOXIDE 26.5 mmol/L (21.0-32.0); CHLORIDE - SERUM 103 mmol/L (98-107); CREATININE - SERUM 1.1 mg/dL (0.6-1.3); POTASSIUM - SERUM 4.2 mmol/L (3.5-5.1); SODIUM 140 mmol/L (136-145); UREA NITROGEN 17 mg/dL (7-18); eGFR NON AFRICAN AMERICAN 67 mL/min (90-120)
[2018-05-31 21:10] LABS: GLUCOSE 224 mg/dL (74-106)
--- NOTE | 2018-05-31 21:10 | NUR ---
PT GIVEN WARM BLANKETS. DENIES ANY FURTHER NEEDS AT THIS TIME. FAMILY AT BEDSIDE. WILL CONTINUE TO MONITOR.
[2018-05-31 21:17] LABS: CKMB 0.8 U/L (0.0-3.6); CREATINE KINASE 22 UL (21-232); PRO BNP 157 pg/mL (0-450)
[2018-05-31 21:23] LABS: TROPONIN-I < 0.017 ng/mL (0.000-0.060)
--- NOTE | 2018-05-31 22:50 | NUR ---
REPORT RECEIVED FROM ALISA MUSTAFA
[2018-06-01] VITALS (11 sets, daily range): BP systolic 98–148; BP diastolic 58–90; Ht 182.9 cm; Wt 89.3 kg
[2018-06-01 02:50] LABS: BASOPHILS 0.4 % (0-2); EOSINOPHILS 5.1 % (0-7); HEMATOCRIT 41.6 % (42.0-54.0); HEMOGLOBIN 13.7 g/dL (13.5-17.5); IMMATURE GRANULOCYTES 0.4 % (0-5); LYMPHOCYTES 27.6 % (15-50); MCH 31.2 pg (26.0-34.0); MCHC 32.9 g/dL (31.0-37.0); MCV 94.8 fL (80.0-100.0); MEAN PLATELET VOLUME 10.8 fL (7.4-10.4); MONOCYTES 9.7 % (2-11); NEUTROPHILS 56.8 % (40-80); PLATELET COUNT 166 10x3/uL (130-400); RBC 4.39 10x6/uL (4.20-6.10); RDW 12.9 % (11.5-14.5); WBC 5.3 10x3/uL (4.8-10.8)
[2018-06-01 03:13] LABS: ALBUMIN 3.1 g/dL (3.4-5.0); ALKALINE PHOSPHATASE 106 U/L (46-116); ALT (SGPT) 19 U/L (10-68); BILIRUBIN - TOTAL 0.62 mg/dL (0.2-1.3); CALC OSMOLALITY 283 mosm/kg (275-300); CALCIUM 8.4 mg/dL (8.5-10.1); CARBON DIOXIDE 28.4 mmol/L (21.0-32.0); CHLORIDE - SERUM 106 mmol/L (98-107); CKMB 1.2 U/L (0.0-3.6); CREATINE KINASE 24 UL (21-232); GLUCOSE 102 mg/dL (74-106); POTASSIUM - SERUM 4.1 mmol/L (3.5-5.1); PROTEIN - SERUM 6.4 g/dL (6.4-8.2); SODIUM 142 mmol/L (136-145); TROPONIN-I 0.016 ng/mL (0.000-0.060); UREA NITROGEN 15 mg/dL (7-18); eGFR NON AFRICAN AMERICAN 75 mL/min (90-120)
--- NOTE | 2018-06-01 09:01 | NUR ---
PT SITTING UP ON EDGE OF BED EATING BREAKFAST WITH FAMILY AT BEDSIDE. PT STATES HE IS BREATHING BETTER NOW BUT JUST OVERALL WEAKNESS. CL IN REACH, NO CURRENT NEEDS. WILL CTM.
[2018-06-01 09:36] LABS: CKMB 1.2 U/L (0.0-3.6); CREATINE KINASE 24 UL (21-232); TROPONIN-I < 0.017 ng/mL (0.000-0.060)
[2018-06-01 15:03] LABS: T4 THYROXIN - FREE 0.99 ng/dL (0.76-1.46); THYROID STIMULATING HORMONE 1.5 uIU/mL (0.36-3.74)
[2018-06-01 15:07] LABS: CREATINE KINASE 25 UL (21-232)
[2018-06-01 15:09] LABS: TROPONIN-I < 0.017 ng/mL (0.000-0.060)
--- NOTE | 2018-06-01 19:23 | NUR ---
PT IN BED. DENIES NEEDS AT THIS TIME.
[2018-06-02 01:05] VITALS: BP 128/67
[2018-06-02 05:36] VITALS: BP 150/81
[2018-06-02 06:32] LABS: BASOPHILS 0.1 % (0-2); EOSINOPHILS 3.4 % (0-7); HEMATOCRIT 44.2 % (42.0-54.0); HEMOGLOBIN 14.4 g/dL (13.5-17.5); IMMATURE GRANULOCYTES 0.3 % (0-5); LYMPHOCYTES 21.7 % (15-50); MCH 31.2 pg (26.0-34.0); MCHC 32.6 g/dL (31.0-37.0); MCV 95.7 fL (80.0-100.0); MEAN PLATELET VOLUME 11.6 fL (7.4-10.4); MONOCYTES 10.4 % (2-11); NEUTROPHILS 64.1 % (40-80); PLATELET COUNT 192 10x3/uL (130-400); RBC 4.62 10x6/uL (4.20-6.10); RDW 13.3 % (11.5-14.5)
[2018-06-02 06:44] LABS: CALC OSMOLALITY 280 mosm/kg (275-300); CALCIUM 8.4 mg/dL (8.5-10.1); CARBON DIOXIDE 26.3 mmol/L (21.0-32.0); CHLORIDE - SERUM 105 mmol/L (98-107); GLUCOSE 127 mg/dL (74-106); POTASSIUM - SERUM 4.2 mmol/L (3.5-5.1); SODIUM 139 mmol/L (136-145); UREA NITROGEN 16 mg/dL (7-18); eGFR NON AFRICAN AMERICAN 75 mL/min (90-120)
--- NOTE | 2018-06-02 07:10 | NUR ---
REPORT RECIEVED FROM FREIGHT CHECKER. PATIENT LAYING IN BED ON BACK AWAKE AND ALERT X 4. FAMILY AT BEDSIDE. PATIENT DENIES ANY NEEDS OR PAIN. WILL CONTINUE WITH PLAN OF CARE. SR UP X 2 BED IN LOW POSTION AND CALL LIGHT IN REACH.
[2018-06-02 08:06] VITALS: BP 139/68
--- NOTE | 2018-06-02 11:19 | NUR ---
PATIENT WATCHING TV SURROUNDED BY FAMILY MEMBERS. PATIENT DENIES ANY NEEDS OR PAIN. ASSESSMENT COMPLETED. WILL CONTINUE TO MONITOR.
[2018-06-02 11:45] VITALS: BP 142/64
--- NOTE | 2018-06-02 14:30 | NUR ---
PATIENT LAYING IN BED ON LEFT SIDE WITH EYES CLOSED AND BREATHING EVENLY. FAMILY AT BEDSIDE.
[2018-06-02 15:56] VITALS: BP 133/68
--- NOTE | 2018-06-02 16:10 | NUR ---
Rehab Prescreening Consult recieved and the chart has been reviewed. He is a good candidate for the ARU when medically stable. His heart rate has been running from 45 to 97 in the past [address] Mccann has documented he has changed his pacemaker parameters to see if this will help control his arrhythmia. Rehab will follow for now. Yanet South RN Clinical Liaison, Rehab
--- NOTE | 2018-06-02 17:59 | NUR ---
PATIENT SITTING UP IN BED EATING SUPPER. FRIEND AT BEDSIDE. PATIENT IS STABLE AND VSS. PATIENT DENIES ANY NEEDS OR PAIN. WILL CONTINUE TO MONITOR. SR UP X 2 BED IN LOW POSITON AND CALL LIGHT IN REACH.
--- NOTE | 2018-06-02 19:41 | NUR ---
EVENING ROUNDS COMPLETED. REPORT RECEIVED. PT SITTING UP IN BED WITH EYES OPEN, RR EVEN AND UNLABORED. NO S/S OF DISTRESS NOTED. INTRODUCED SELF TO PT, PT DENIES FURTHER NEEDS AT THIS TIME. CALL LIGHT IN REACH. WILL CTM.
[2018-06-02 20:00] VITALS: BP 146/92
[2018-06-03] VITALS (7 sets, daily range): BP systolic 112–161; BP diastolic 55–88
--- NOTE | 2018-06-03 02:20 | NUR ---
RN NOTE: PATIENT RESTING COMFORTABLY IN BED. RESPIRATIONS ARE EVEN AND UNLABORED. NO S/S OF DISTRESS. NO C/O PAIN. CALL LIGHT WITHIN REACH. WILL CPOC.
--- NOTE | 2018-06-03 05:02 | NUR ---
PT LYING IN BED WITH EYES OPEN, RR EVEN AND UNLABORED. BED IN LOW POSITION. NO S/S OF DISTRESS. STATES PAIN MEDICATION WAS EFFECTIVE FOR PAIN IN LEFT SHOULDER. DENIES FURTHER AT THIS TIME. CALL LIGHT IN REACH. WILL CTM.
[2018-06-03 06:44] LABS: BASOPHILS 0.2 % (0-2); EOSINOPHILS 4.2 % (0-7); HEMATOCRIT 43.7 % (42.0-54.0); HEMOGLOBIN 14.3 g/dL (13.5-17.5); IMMATURE GRANULOCYTES 0.2 % (0-5); LYMPHOCYTES 25.3 % (15-50); MCH 31.2 pg (26.0-34.0); MCHC 32.7 g/dL (31.0-37.0); MCV 95.2 fL (80.0-100.0); MEAN PLATELET VOLUME 11.8 fL (7.4-10.4); NEUTROPHILS 58.1 % (40-80); PLATELET COUNT 160 10x3/uL (130-400); RBC 4.59 10x6/uL (4.20-6.10); RDW 13.3 % (11.5-14.5); WBC 5.7 10x3/uL (4.8-10.8)
--- NOTE | 2018-06-03 07:10 | NUR ---
REPORT RECIEVED FROM VESSEL CAPTAIN. PATIENT LAYING IN BED ON BACK AWAKE, ALERT AND ORIENTED X 4 . VSS. PATIENT IS STABLE. PATIENT DENIES ANY NEEDS OR PAIN. WILL CONTINUE WITH PLAN OF CARE.
[2018-06-03 07:12] LABS: CALC OSMOLALITY 281 mosm/kg (275-300); CALCIUM 8.2 mg/dL (8.5-10.1); CARBON DIOXIDE 28.6 mmol/L (21.0-32.0); CHLORIDE - SERUM 104 mmol/L (98-107); CREATININE - SERUM 0.9 mg/dL (0.6-1.3); GLUCOSE 126 mg/dL (74-106); SODIUM 140 mmol/L (136-145); UREA NITROGEN 15 mg/dL (7-18); eGFR NON AFRICAN AMERICAN 85 mL/min (90-120)
--- NOTE | 2018-06-03 12:10 | NUR ---
PATIENT TO RADIOLOGY VIA WC AND RADIOLOGY PERSONNEL. PATIENT IS STABLE AND VSS.
--- NOTE | 2018-06-03 14:20 | NUR ---
PATIENT RETURNED FROM RADIOLOGY. PATIENT IS STABLE AND VSS. PATIENT DENIES ANY NEEDS OR PAIN. FAMILY AT BED SIDE. WILL CONTINUE TO MONITOR.
--- NOTE | 2018-06-03 19:34 | NUR ---
EVENING ROUNDS COMPLETED. REPORT RECEIVED. PT SITTING UP IN BED WITH EYES OPEN, RR EVEN AND UNLABORED. BED IN LOW POSITION. NO S/S OF DISTRESS NOTED. 91 SINUS W/ ACCELERATED VENTRICLE ON TELEMETRY. INTRODUCED SELF TO PT. PT DENIES FURTHER NEEDS AT THIS TIME. CALL LIGHT IN REACH. WILL CTM.
--- NOTE | 2018-06-04 02:00 | NUR ---
PT LYING IN BED WITH EYES CLOSED, RR EVEN AND UNLABORED. BED IN LOW POSITION. SIDE RAILS UP X2. NO S/S OF DISTRESS NOTED. 89 SINUS WITH BUNDLE BRANCH, OCCASIONAL PVC'S AND TRIGEMINAL PVC'S NOTED. CALL LIGHT IN REACH. WILL CTM.
[2018-06-04 03:53] VITALS: BP 140/67
--- NOTE | 2018-06-04 05:00 | NUR ---
ASSESSMENT REVIEWED AND IN AGREEMENT. PT RESTING WITH NO DISTRESS. MONITOR AND CPOC.
[2018-06-04 05:37] LABS: BASOPHILS 0.4 % (0-2); EOSINOPHILS 4.8 % (0-7); HEMATOCRIT 42.5 % (42.0-54.0); IMMATURE GRANULOCYTES 0.2 % (0-5); MCH 31.6 pg (26.0-34.0); MCHC 32.9 g/dL (31.0-37.0); MCV 95.9 fL (80.0-100.0); MEAN PLATELET VOLUME 11.5 fL (7.4-10.4); MONOCYTES 12.8 % (2-11); NEUTROPHILS 55.8 % (40-80); PLATELET COUNT 161 10x3/uL (130-400); RBC 4.43 10x6/uL (4.20-6.10); RDW 13.3 % (11.5-14.5); WBC 5.6 10x3/uL (4.8-10.8)
[2018-06-04 05:44] LABS: CALC OSMOLALITY 275 mosm/kg (275-300); CALCIUM 8.6 mg/dL (8.5-10.1); CARBON DIOXIDE 30.2 mmol/L (21.0-32.0); CHLORIDE - SERUM 104 mmol/L (98-107); CREATININE - SERUM 0.9 mg/dL (0.6-1.3); GLUCOSE 103 mg/dL (74-106); SODIUM 138 mmol/L (136-145); UREA NITROGEN 13 mg/dL (7-18); eGFR NON AFRICAN AMERICAN 85 mL/min (90-120)
--- NOTE | 2018-06-04 06:31 | NUR ---
PT SITTING UP IN BED WITH EYES OPEN, RR EVEN AND UNLABORED. NO S/S OF DISTRESS NOTED. DENIES FURTHER NEEDS AT THIS TIME. CALL LIGHT IN REACH. WILL CTM.
--- NOTE | 2018-06-04 07:10 | NUR ---
REPORT RECEIVED FROM SHIP ENGINES OPERATING ENGINEER. PATIENT LAYING IN BED AWAKE, ALERT AND ORIENTED X 4. VSS AND PATIENT IS STABLE. WILL CONTINUE WITH PLAN OF CARE.
[2018-06-04] MEDS ORDERED: LASIX40 MG PO (09:40)
[2018-06-04 09:41] VITALS: BP 157/74
--- NOTE | 2018-06-04 11:15 | NUR ---
ORDER RECIEVED FOR DC. PATIENT IS STABLE AND VS ARE STABLE. PATIENT DENEIS ANY NEEDS OR PAIN. DISCHARGE INSTRUCTIONS GIVEN VERBALLY AND WRITTEN. PATIENT VERBALIZED UNDERSTANDING AND SIGNED INSTRUCTION SUMMARY. FAMILY VOICED UNDERSTANDING WELL. IV TO RT FOREARM DC WITHOUT DIFFICULTY. PATIENT DC IN WC TO PRIVATE VEHICLE DRIVEN BY FAMILY MEMBER TO HOME FOR SELF CARE.
--- NOTE | 2018-06-05 09:55 | MORECARE ---
CASE MANAGEMENT DISCHARGE SUMMARY PATIENT: JAVIER PENNY UNIT: [id number] ADM DATE: 05/31/18 AGE: 87 : 32 SEX: M ROOM/BED: D.3444 AUTHOR: GONZÁLEZ OLVERA PHYSICIAN: REFERRING PHYSICIAN: CARLOS RODRIGUEZ MD DATE OF SERVICE: 06/05/18 Discharge Plan Patient Name: JAVIER PENNY [facility] [facility] 1930 Planned Disposition: Home Anticipated Discharge Date: 06/04/18 Discharge Date: 06/04/2018 Expected LOS: 4 Initial Reviewer: [email or web address] Initial Review Date: 06/05/2018 Generated: 06/05/18 10:54 am Patient Name: JAVIER PENNY Page [phone] at 0955 All edits/amendments must be made on the electronic document DICTATION DATE: 06/05/18953 MANAGER CABLE: RICHIE 06/05/18953 RPT#: [id number] DC DATE:06/04/18 STATUS: DIS IN [facility] [address] [place] [address] END OF REPORT
== END 2018-06-04 11:35 | disposition home or self-care (01) | DRG 309 ==
LOC: D.ER 20:03 → D.EDHOLD 22:26 → D.M2 22:26
PROVIDERS: Family Medicine; ADMIT Internal Medicine Nephrology; ATTEND Internal Medicine Nephrology
DX: I49.3 Ventricular premature depolarization (principal); I50.20 Unspecified systolic (congestive) heart failure; I48.91 Unspecified atrial fibrillation; E78.5 Hyperlipidemia, unspecified; F32.9 Major depressive disorder, single episode, unspecified; F41.9 Anxiety disorder, unspecified; N40.0 Benign prostatic hyperplasia without lower urinary tract symptoms; I11.0 Hypertensive heart disease with heart failure; I08.3 Combined rheumatic disorders of mitral, aortic and tricuspid valves; Z95.0 Presence of cardiac pacemaker; Z85.048 Personal history of other malignant neoplasm of rectum, rectosigmoid junction, and anus; Z85.46 Personal history of malignant neoplasm of prostate; Z87.891 Personal history of nicotine dependence

== ENCOUNTER 2018-08-02 20:18 | Emergency (ER) | payer MEDICARE, BC ==
[~2018-08-02] VITALS: Ht 182.9 cm; Wt 88.6 kg
[~2018-08-02 20:18] MED LIST changes: +LASIX40 MG PO
[2018-08-02 20:32] VITALS: Ht 182.9 cm; Wt 88.6 kg
[2018-08-02 22:00] LABS: BASOPHILS 0.4 % (0-2); EOSINOPHILS 5.1 % (0-7); HEMATOCRIT 40.4 % (42.0-54.0); HEMOGLOBIN 13.4 g/dL (13.5-17.5); IMMATURE GRANULOCYTES 0.2 % (0-5); LYMPHOCYTES 26.3 % (15-50); MCH 31.1 pg (26.0-34.0); MCHC 33.2 g/dL (31.0-37.0); MCV 93.7 fL (80.0-100.0); MONOCYTES 9.2 % (2-11); NEUTROPHILS 58.8 % (40-80); RBC 4.31 10x6/uL (4.20-6.10); RDW 13.2 % (11.5-14.5); WBC 5.1 10x3/uL (4.8-10.8)
[2018-08-02 22:09] LABS: APPEARANCE CLEAR (CLEAR); BILIRUBIN NEGATIVE (NEGATIVE); COLOR YELLOW (YELLOW); GLUCOSE NEGATIVE (NEGATIVE); KETONE NEGATIVE (NEGATIVE); NITRITE NEGATIVE (NEGATIVE); PROTEIN NEGATIVE (NEGATIVE); SPECIFIC GRAVITY 1.015 (1.005-1.020); UROBILINOGEN NORMAL (NORMAL)
[2018-08-02 22:09] LABS: PLATELET COUNT 101 10x3/uL (130-400)
[2018-08-02 22:26] LABS: ALBUMIN 3.2 g/dL (3.4-5.0); ALKALINE PHOSPHATASE 76 U/L (46-116); ALT (SGPT) 12 U/L (10-68); BILIRUBIN - TOTAL 0.54 mg/dL (0.2-1.3); CALC OSMOLALITY 281 mosm/kg (275-300); CALCIUM 8.1 mg/dL (8.5-10.1); CARBON DIOXIDE 28.4 mmol/L (21.0-32.0); CHLORIDE - SERUM 105 mmol/L (98-107); CREATININE - SERUM 0.9 mg/dL (0.6-1.3); GLUCOSE 106 mg/dL (74-106); PRO BNP 361 pg/mL (0-450); PROTEIN - SERUM 6.3 g/dL (6.4-8.2); SODIUM 141 mmol/L (136-145); UREA NITROGEN 14 mg/dL (7-18); eGFR NON AFRICAN AMERICAN 85 mL/min (90-120)
[2018-08-02 22:27] LABS: TROPONIN-I < 0.017 ng/mL (0.000-0.060)
[2018-08-02 22:28] LABS: POTASSIUM - SERUM 2.9 mmol/L (3.5-5.1)
[2018-08-02 23:54] VITALS: BP 144/89
== END 2018-08-02 23:56 | disposition home or self-care (01) ==
LOC: D.ER 20:18
PROVIDERS: Family Medicine
DX: R53.1 Weakness (principal); E87.6 Hypokalemia

== ENCOUNTER 2018-08-23 21:48 | Emergency (ER) | payer MEDICARE, BC ==
[~2018-08-23] VITALS: Ht 182.9 cm; Wt 89.1 kg
[2018-08-23 21:51] VITALS: Ht 182.9 cm; Wt 89.1 kg
[2018-08-23 22:11] LABS: BASOPHILS 0.6 % (0-2); EOSINOPHILS 7.4 % (0-7); HEMATOCRIT 42.7 % (42.0-54.0); HEMOGLOBIN 14.2 g/dL (13.5-17.5); IMMATURE GRANULOCYTES 0.8 % (0-5); LYMPHOCYTES 25.8 % (15-50); MCH 31.2 pg (26.0-34.0); MCHC 33.3 g/dL (31.0-37.0); MCV 93.8 fL (80.0-100.0); MEAN PLATELET VOLUME 11.4 fL (7.4-10.4); MONOCYTES 10.5 % (2-11); NEUTROPHILS 54.9 % (40-80); PLATELET COUNT 124 10x3/uL (130-400); RBC 4.55 10x6/uL (4.20-6.10); RDW 13.3 % (11.5-14.5); WBC 5.1 10x3/uL (4.8-10.8)
[2018-08-23 22:24] LABS: APTT 31.1 SECONDS (22.8-39.4); INR 1.14 (0.85-1.17); PROTIME 14.1 SECONDS (11.6-15.0)
[2018-08-23 22:29] LABS: ALBUMIN 3.4 g/dL (3.4-5.0); ALKALINE PHOSPHATASE 90 U/L (46-116); ALT (SGPT) 18 U/L (10-68); BILIRUBIN - TOTAL 0.37 mg/dL (0.2-1.3); CALC OSMOLALITY 280 mosm/kg (275-300); CALCIUM 8.5 mg/dL (8.5-10.1); CARBON DIOXIDE 27.3 mmol/L (21.0-32.0); CHLORIDE - SERUM 105 mmol/L (98-107); GLUCOSE 119 mg/dL (74-106); POTASSIUM - SERUM 3.5 mmol/L (3.5-5.1); PROTEIN - SERUM 6.8 g/dL (6.4-8.2); SODIUM 140 mmol/L (136-145); UREA NITROGEN 14 mg/dL (7-18); eGFR NON AFRICAN AMERICAN 75 mL/min (90-120)
[2018-08-24] MEDS ORDERED: CYCLOBENZAPRINE10 MG PO (00:09)
[2018-08-24] MEDS ORDERED: MEDROL DOSE PACK4 MG PO (00:09)
[2018-08-24] MEDS ORDERED: ACETAMINOPHEN500 M1 PO (00:09)
[2018-08-24 00:47] VITALS: BP 133/77
== END 2018-08-24 00:48 | disposition home or self-care (01) ==
LOC: D.ER 21:48
PROVIDERS: Family Medicine
DX: I71.4 Abdominal aortic aneurysm, without rupture (principal); T14.8XXA Other injury of unspecified body region, initial encounter; W18.2XXA Fall in (into) shower or empty bathtub, initial encounter; Y93.E1 Activity, personal bathing and showering; Y92.012 Bathroom of single-family (private) house as the place of occurrence of the external cause; M79.18 Myalgia, other site

== ENCOUNTER 2018-08-28 08:30 | Observation (INO) | payer MEDICARE, BC ==
[~2018-08-28] VITALS: Ht 182.9 cm; Wt 100.0 kg
[~2018-08-28 08:30] MED LIST changes: +ACETAMINOPHEN500 M1 PO; +CYCLOBENZAPRINE10 MG PO; +MEDROL DOSE PACK4 MG PO
[2018-08-28] MEDS ORDERED: HYDROCODON-ACET15 ML PO (08:42)
[2018-08-28 09:30] VITALS: BP 130/86
[2018-08-28 09:50] LABS: BASOPHILS 0.3 % (0-2); EOSINOPHILS 3.8 % (0-7); HEMATOCRIT 44.6 % (42.0-54.0); IMMATURE GRANULOCYTES 0.2 % (0-5); LYMPHOCYTES 13.9 % (15-50); MCH 31.4 pg (26.0-34.0); MCHC 33.6 g/dL (31.0-37.0); MCV 93.3 fL (80.0-100.0); MEAN PLATELET VOLUME 11.5 fL (7.4-10.4); MONOCYTES 8.9 % (2-11); NEUTROPHILS 72.9 % (40-80); PLATELET COUNT 109 10x3/uL (130-400); RBC 4.78 10x6/uL (4.20-6.10); RDW 13.2 % (11.5-14.5); WBC 6.3 10x3/uL (4.8-10.8)
[2018-08-28 10:03] LABS: ALBUMIN 3.4 g/dL (3.4-5.0); ALKALINE PHOSPHATASE 78 U/L (46-116); ALT (SGPT) 16 U/L (10-68); CALC OSMOLALITY 275 mosm/kg (275-300); CALCIUM 9.1 mg/dL (8.5-10.1); CARBON DIOXIDE 30.7 mmol/L (21.0-32.0); CHLORIDE - SERUM 99 mmol/L (98-107); CREATININE - SERUM 0.9 mg/dL (0.6-1.3); GLUCOSE 132 mg/dL (74-106); POTASSIUM - SERUM 3.6 mmol/L (3.5-5.1); PROTEIN - SERUM 7.1 g/dL (6.4-8.2); SODIUM 137 mmol/L (136-145); UREA NITROGEN 13 mg/dL (7-18); eGFR NON AFRICAN AMERICAN 85 mL/min (90-120)
[2018-08-28 10:15] LABS: CKMB 2.7 U/L (0.0-3.6); CREATINE KINASE 250 UL (21-232)
[2018-08-28 10:18] LABS: TROPONIN-I < 0.017 ng/mL (0.000-0.060)
--- NOTE | 2018-08-28 10:28 | NUR ---
PT ASSISTED UP TO BS. URINE SPEC OBTAINED, LABELED AT BS AND SENT TO LAB
[2018-08-28 10:41] LABS: APPEARANCE CLEAR (CLEAR); BILIRUBIN NEGATIVE (NEGATIVE); COLOR YELLOW (YELLOW); GLUCOSE 50 mg/dL (NEGATIVE); KETONE NEGATIVE (NEGATIVE); NITRITE NEGATIVE (NEGATIVE); PROTEIN TRACE mg/dL (NEGATIVE); UROBILINOGEN NORMAL (NORMAL)
[2018-08-28 10:42] LABS: BACTERIA FEW /hpf (NONE SEEN); EPITHELIAL CELLS 0-5 /hpf (0-5); MUCUS <1+ /lpf (NONE SEEN); RED CELLS - URINE 25-50 /hpf (0-5)
[2018-08-28 10:43] LABS: AMORPHOUS SEDIMENT <1+ /lpf (NONE SEEN); GRANULAR CAST OCC /lpf (NONE SEEN); SPERMATOZOA RARE /hpf (NONE SEEN)
[2018-08-28 10:44] VITALS: BP 134/86
--- NOTE | 2018-08-28 10:45 | NUR ---
RESTING IN BED,. PT REPORTS "NO PAIN LONG I AM LYING STILL"
--- NOTE | 2018-08-28 12:27 | NUR ---
REPORT CALLED TO [facility] BY SBAR FORMAT
[2018-08-28 12:42] VITALS: BP 137/82
--- NOTE | 2018-08-28 12:44 | NUR ---
PT REQUESTING PAIN MEDS BEFORE GOING TO ROOM "I HURT WHEN I MOVE AROUND" MED PER PRN ORDERS
[2018-08-28] MEDS ORDERED: ATIVAN1 MG PO (13:06)
[2018-08-28 16:53] VITALS: BP 160/90
[2018-08-28 18:17] VITALS: Ht 182.9 cm; Wt 100.0 kg
--- NOTE | 2018-08-28 21:14 | NUR ---
REC'D. RETURNING FROM X-RAY VIA BED.C/O LEFT HIP PAIN RATING PAIN 3 ON ONE TO TEN PAIN SCALE.MORPHINE 2MG GIVEN IV TITRATED WITH 5CC NS GIVEN SLOW FOR RELIEF.DENIES LEG PAIN NUMBNESS OR TINGLING GOOD PEDAL PULSE.WIGGLES TOES AND DORSIFLEXES WITHOUT DIFFICULTY. WILL CONTINUE TO MONITOR FOR ANY CHGES IN NEUROVASCULAR STATUS AND FOLLOW CURRENT PLAN OF CARE.
[2018-08-28 22:12] VITALS: BP 133/78
[2018-08-29 01:15] VITALS: BP 133/83
--- NOTE | 2018-08-29 04:15 | NUR ---
I have reviewed this patient and I concur with the Shift Assessment completed by the Licensed Practical Nurse today this shift.
[2018-08-29 04:54] LABS: BASOPHILS 0.4 % (0-2); EOSINOPHILS 6.9 % (0-7); HEMATOCRIT 43.2 % (42.0-54.0); HEMOGLOBIN 14.3 g/dL (13.5-17.5); LYMPHOCYTES 17.3 % (15-50); MCHC 33.1 g/dL (31.0-37.0); MCV 93.5 fL (80.0-100.0); MEAN PLATELET VOLUME 11.5 fL (7.4-10.4); NEUTROPHILS 64.4 % (40-80); PLATELET COUNT 124 10x3/uL (130-400); RBC 4.62 10x6/uL (4.20-6.10); RDW 13.3 % (11.5-14.5); WBC 5.7 10x3/uL (4.8-10.8)
[2018-08-29 05:29] VITALS: BP 149/72
[2018-08-29 05:43] LABS: ALBUMIN 3.2 g/dL (3.4-5.0); ALKALINE PHOSPHATASE 71 U/L (46-116); ALT (SGPT) 15 U/L (10-68); BILIRUBIN - TOTAL 1.04 mg/dL (0.2-1.3); CALC OSMOLALITY 276 mosm/kg (275-300); CALCIUM 8.7 mg/dL (8.5-10.1); CARBON DIOXIDE 28.4 mmol/L (21.0-32.0); CHLORIDE - SERUM 102 mmol/L (98-107); CREATININE - SERUM 0.9 mg/dL (0.6-1.3); GLUCOSE 100 mg/dL (74-106); POTASSIUM - SERUM 3.3 mmol/L (3.5-5.1); PROTEIN - SERUM 6.9 g/dL (6.4-8.2); SODIUM 139 mmol/L (136-145); UREA NITROGEN 11 mg/dL (7-18); eGFR NON AFRICAN AMERICAN 85 mL/min (90-120)
--- NOTE | 2018-08-29 08:14 | NUR ---
ALERT AND ORIENTED X 3. LUNGS CLEAR BILATERALLY IN ALL SIN. HEART SOUNDS S1 AND S2 HEARD IN ALL SIN. PACEMAKER PRESENT. BOWEL SOUNDS ACTIVE X 4. SKIN INTACT WITHOUT REDNESS. EDUCATION PROVIDED ON FALL PRECAUTIONS. STATES KNOWS TO CALL FOR ASSISTANCE. FALL PRECAUTIONS IN PLACE. IV TO RFA PATENT WITHOUT REDNESS. DENIES NEEDS. BED LOW. CALL MAHARAJ AND PERSONAL ITEMS IN REACH. WILL CONTINUE TO MONITOR.
[2018-08-29 09:04] VITALS: BP 123/84
--- NOTE | 2018-08-29 10:12 | NUR ---
UP WALKING WITH PT. PT STATED WILL PUT IN CHAIR AT BEDSIDE WHEN FINISHED. WILL CONTINUE TO MONITOR.
--- NOTE | 2018-08-29 11:25 | NUR ---
SLEEPING IN CHAIR AT BEDSIDE. WILL CONTINUE TO MONITOR.
--- NOTE | 2018-08-29 12:51 | NUR ---
PRN PAIN MEDICATION GIVEN FOR LOWER BACK PAIN 11/11. WILL COTNTINUE TO MONITOR.
--- NOTE | 2018-08-29 13:09 | HP ---
PATIENT: JAVIER PENNY MEDICAL RECORD: [id number] ACCOUNT: [id number] LOCATION:D.MS [id number] : 34 ADMISSION DATE: 08/28/18 PCP: SHELDON POTTER DO HISTORY AND PHYSICAL EXAMINATION DATE OF ADMISSION: 08/28/2018 CHIEF COMPLAINT: Cannot walk due to back pain. HISTORY OF PRESENT ILLNESS: This is an 87-year-old white male, who fell in his shower on 08/24/2018. He was brought to the ER at that time via EMS. He had CTs done of his head, neck, chest, abdomen, and pelvis basically showed extensive multilevel degenerative changes in the cervical spine with [id number]-lt-vvcgdz spinal canal and neural foraminal narrowing. 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 He was sent home with muscle relaxers, pain pills. He states since then he has had continued pain in his lower back, to the point where he cannot get up due to the pain. He requires assistance and once he can get up, he is able to walk. Denies numbness, tingling, or weakness going down either leg. No bowel or bladder difficulties. So, he presents back here for continued pain and inability to walk. He is admitted to observation for further evaluation of this. PAST MEDICAL HISTORY: 1. Cataracts. 2. Hypertension. 3. Skin cancer. 4. Depression. 5. Anxiety. 6. Prostate cancer. 7. Atrial fibrillation. 8. Rectal cancer. PAST SURGICAL HISTORY: Cataract repair, pacemaker placement, right shoulder surgery, hernia repair, colectomy in 2014. ALLERGIES: TETANUS AND CEPHALEXIN. HOME MEDICATIONS: Included cyclobenzaprine 10 mg t.i.d. p.r.n. pain, prescribed on 08/24/2018. Hydrocodone 7.5/Acetaminophen 325 q.4 hours p.r.n. pain, prescribed on 08/24/2018. He takes Eliquis 5 mg twice a day, amlodipine 5 mg once a day, Lexapro 20 mg once a day, ropinirole 0.25 mg at bedtime, lorazepam 1 mg b.i.d. p.r.n. anxiety, Tylenol 500 mg 2 p.o. q.8 hours p.r.n. pain or fever, aspirin 325 mg once a day, potassium chloride 10 mEq once a day, furosemide 40 mg once a day. HABITS: He does not smoke. He does drink occasional beer. Denies any illicit drug use. FAMILY HISTORY: Significant for hypertension, coronary artery disease, diabetes. SOCIAL HISTORY: He is and has been living by himself until some family member has moved in over the last few days to look after him. REVIEW OF SYSTEMS: HISTORY AND PHYSICAL [id number] JAVIER PENNY GENERAL: No major weight changes. HEENT: No particular sinus or allergy problems. RESPIRATORY: No history of COPD or asthma. CARDIAC: See above history. He is now followed by Dr. Mccann for AFib and pacemaker. GASTROINTESTINAL: No history of diarrhea, constipation or heartburn. GENITOURINARY: History of prostate cancer. MUSCULOSKELETAL: He has arthritis per x-rays, but he really has not complained of too many aches and pains in his neck, shoulder, back, hips, or knees until this fall last week. NEUROLOGIC: No seizures, no migraine headaches. PSYCHIATRIC: He has some depression/anxiety. PHYSICAL EXAMINATION: VITAL SIGNS: Temperature 97.5, pulse 88, respirations 16, blood pressure 137/82, O2 sat 98%. GENERAL: He is awake, alert, does not appear in acute distress, a friend is in the room with him. SKIN: Warm and dry. HEENT: Grossly within normal limits. NECK: Supple. No JVD or bruit. HEART: Right now is regular rate and rhythm. LUNGS: Fairly clear. ABDOMEN: Soft, flat, nontender. EXTREMITIES: No edema. MUSCULOSKELETAL: He has generalized tenderness to palpation across the lower lumbar spine. Straight leg raises negative for radiating pain. ASSESSMENT: 1. Continued pain in his low back with inability to walk. 2. Fall on 08/24/2018. PLAN: I have reviewed all the x-ray reports from last week including CT of his head, cervical spine, chest/abdomen/pelvis. We will get a CT of the lumbar spine. Consult physical therapy, pain control. Other tests or procedures as warranted. TRANSINT:[id number] Voice Confirmation ID: [id number] DOCUMENT ID: [id number] JORGE OZUNA MD at 1309 CC: [id number] DICTATION DATE: 08/28/18 1533 [place] REPORT DEVELOPER: 08/28/18 1558 ADM IN [facility] [id number] [place] [address]
--- NOTE | 2018-08-29 13:31 | NUR ---
CONSENT SIGNED FOR TLSO BRACE
--- NOTE | 2018-08-29 13:33 | MORECARE ---
CASE MANAGEMENT DISCHARGE SUMMARY PATIENT: JAVIER PENNY UNIT: [id number] ADM DATE: 08/28/18 AGE: 87 : 32 SEX: M ROOM/BED: D.2228 AUTHOR: WADE,DOC PHYSICIAN: REFERRING PHYSICIAN: JORGE OZUNA MD DATE OF SERVICE: 08/29/18 Discharge Plan Patient Name: JAVIER PENNY Facility: [facility]:[place] : 1930 Planned Disposition: Home Anticipated Discharge Date: 08/30/18 Discharge Date: Expected LOS: 2 Initial Reviewer: [email or web address] Initial Review Date: 08/29/2018 Generated: 08/29/18 2:33 pm Comments DCP- Discharge Planning Updated by [email or web address]: Suzanne Solitario on 08/29/18 12:[address] Patient Name: JAVIER PENNY Admission Status: ER Accout number: [id number] Admission Date: 08-28-2018 : 1930 Admission Diagnosis: Attending: JORGE OZUNA Current LOS: 1 Anticipated DC Date: 08-30-2018 Planned Disposition: Home Primary Insurance: MEDICARE A & B Discharge Planning Comments: CM met with patient to complete initial dc planning assessment. CM educated patient on the CM role and verbal consent given by patient to complete assessment. Patient lives at home with his grand daughter and her . At discharge patient plans to return and feels this is a safe discharge. CM discussed availability of home health, rehab services, and medical equipment. Patient's grand daughter states that the patient needs a walker. TANYA for Byron signed. CM will continue to follow and will assist as needed with dc plans/needs. Foreman Or Supervisor And Operator: Suzanne Solitario DCPIA - Discharge Planning Initial Assessment Updated by [email or web address]: Suzanne Solitario on 08/29/18 1:30 pm * Is the patient Alert and Oriented? Yes * How many steps to enter\exit or inside your home? 2/0 * PCP Dr. Ward * Pharmacy [place] * Preadmission Environment Home with Family * ADLs Partial Dependent * Partial ADLs (Assistance needed) Ambulation * Equipment None * List name and contact numbers for known caregivers / representatives who currently or will assist patient after discharge: Jesika Streeter - grand daughter - [phone] * Verbal permission to speak to the caregivers and representatives has been obtained from the patient. Yes * Community resources currently utilized None * Additional services required to return to the preadmission environment? Yes * Can the patient safely return to the preadmission environment? Yes * Has this patient been hospitalized within the prior 30 days at any hospital? No Coverage Notice Reviewer: [id number] Ashlyn Solitario Notice Issued Date-Time: 08/29/2018 9:42 Notice Type: Medicare Outpatient Observation Notice Notice Delivered To: Patient Relationship to Patient: Self Rn Documentation Name: Delivery Method: HAND - Hand Delivered Olivia Days: Prior Verbal Notification: Recipient Understood Notice: Yes Recipient Signature: Med Rec Note Co-signed by Attending: Coverage Notice Comment: GABBY explained, signed, given, copy placed in MR. Signed by his grand daughter per his request, but she signed his name. Patient Name: JAVIER PENNY Page [phone] at 1333 All edits/amendments must be made on the electronic document DICTATION DATE: 08/29/18 1333 WRITER TECHNICAL PUBLICATIONS: RICHIE 08/29/18 1333 RPT#: [id number] DC DATE: STATUS: ADM IN [facility] [address] [place] [address] END OF REPORT
[2018-08-29 13:34] VITALS: BP 150/93
--- NOTE | 2018-08-29 13:42 | MORECARE ---
CASE MANAGEMENT DISCHARGE SUMMARY PATIENT: JAVIER PENNY UNIT: [id number] ADM DATE: 08/28/18 AGE: 87 : 32 SEX: M ROOM/BED: D.2228 AUTHOR: WADE,DOC PHYSICIAN: REFERRING PHYSICIAN: JORGE OZUNA MD DATE OF SERVICE: 08/29/18 Discharge Plan Patient Name: JAVIER PENNY Facility: [facility]:[place] : 1930 Planned Disposition: Home Anticipated Discharge Date: 08/30/18 Discharge Date: Expected LOS: 2 Initial Reviewer: [email or web address] Initial Review Date: 08/29/2018 Generated: 08/29/18 2:42 pm Comments DCP- Discharge Planning Updated by [email or web address]: Suzanne Solitario on 08/29/18 12:[address] Patient Name: JAVIER PENNY Admission Status: ER Accout number: [id number] Admission Date: 08-28-2018 : 1930 Admission Diagnosis: Attending: JORGE OZUNA Current LOS: 1 Anticipated DC Date: 08-30-2018 Planned Disposition: Home Primary Insurance: MEDICARE A & B Discharge Planning Comments: CM met with patient to complete initial dc planning assessment. CM educated patient on the CM role and verbal consent given by patient to complete assessment. Patient lives at home with his grand daughter and her . At discharge patient plans to return and feels this is a safe discharge. CM discussed availability of home health, rehab services, and medical equipment. Patient's grand daughter states that the patient needs a walker. TANYA for Byron signed. CM will continue to follow and will assist as needed with dc plans/needs. Senior Maintenance Mechanic: Suzanne Solitario DCPIA - Discharge Planning Initial Assessment Updated by [email or web address]: Suzanne Solitario on 08/29/18 1:30 pm * Is the patient Alert and Oriented? Yes * How many steps to enter\exit or inside your home? 2/0 * PCP Dr. Ward * Pharmacy [facility] [place] * Preadmission Environment Home with Family * ADLs Partial Dependent * Partial ADLs (Assistance needed) Ambulation * Equipment None * List name and contact numbers for known caregivers / representatives who currently or will assist patient after discharge: Jesika Streeter - grand daughter - [phone] * Verbal permission to speak to the caregivers and representatives has been obtained from the patient. Yes * Community resources currently utilized None * Additional services required to return to the preadmission environment? Yes * Can the patient safely return to the preadmission environment? Yes * Has this patient been hospitalized within the prior 30 days at any hospital? No External Providers [facility] Provider[facility] Next Contact Date: Service Request Date: Service Type: Resolution: Reviewer: Comments: Coverage Notice Reviewer: [email or web address] Solitario Notice Issued Date-Time: 08/29/2018 9:42 Notice Type: Medicare Outpatient Observation Notice Notice Delivered To: Patient Relationship to Patient: Self Marble Machine Operator Name: Delivery Method: HAND - Hand Delivered Olivia Days: Prior Verbal Notification: Recipient Understood Notice: Yes Recipient Signature: Med Rec Note Co-signed by Attending: Coverage Notice Comment: GABBY explained, signed, given, copy placed in MR. Signed by his grand daughter per his request, but she signed his name. Reviewer: [email or web address] Ashlyn Solitario Notice Issued Date-Time: 08/29/2018 13:38 Notice Type: Patient Choice Letter Notice Delivered To: Family Member Relationship to Patient: Granddaughter Marble Machine Operator Name: Jesika Streeter Delivery Method: HAND - Hand Delivered Olivia Days: Prior Verbal Notification: Recipient Understood Notice: Yes Recipient Signature: Yes Med Rec Note Co-signed by Attending: Coverage Notice Comment: TANYA Mccoy DP export: 08/29/18 12:33 p Patient Name: JAVIER PENNY Page [id number] at 1342 All edits/amendments must be made on the electronic document DICTATION DATE: 08/29/18 1342 [facility] DIRECTOR: RICHIE 08/29/18 1342 RPT#: [id number] DC DATE: STATUS: ADM IN [facility] [address] [place] [address] END OF REPORT
--- NOTE | 2018-08-29 14:44 | NUR ---
REQUESTED AND GIVEN WARM PRUNE JUICE AND SPRITE TO INITIATE BM.
[2018-08-29 16:14] VITALS: BP 153/72
--- NOTE | 2018-08-29 16:27 | NUR ---
RESTING IN BED. DENIES PAIN. DENIES NEEDS. FAMILY MEMBER AT BEDSIDE. WILL CONTINUE TO MONITOR.
--- NOTE | 2018-08-29 18:32 | NUR ---
RESTING IN BED. DENIES PAIN. DENIES NEEDS. BED LOW. CALL MAHARAJ AND PERSONAL ITEMS IN REACH. FALL PRECAUTIONS IN PLACE.
[2018-08-29 20:28] VITALS: BP 142/82
--- NOTE | 2018-08-29 20:47 | NUR ---
RESTING QUIETLY WITH NO DISTRESS NOTED. RESP UNLABORED. SL TO RFA WITHOUT REDNESS OR EDEMA NOTED. CL IN REAC
--- NOTE | 2018-08-29 21:00 | NUR ---
RESTING QUIELTY WITH NO DISTRESS NOTED. RESP UNLABORED. CL IN REACH
[2018-08-30 00:40] VITALS: BP 134/63
--- NOTE | 2018-08-30 03:07 | NUR ---
I have reviewed this patient and I concur with the Shift Assessment completed by the Licensed Practical Nurse today this shift.
[2018-08-30 05:21] VITALS: BP 154/60
[2018-08-30 08:52] VITALS: BP 140/68
[2018-08-30] MEDS ORDERED: PERCOCET 10-321 EAC1 PO (08:52)
--- NOTE | 2018-08-30 09:08 | NUR ---
ALERT AND ORIENTED X 3. LUNGS CLEAR BILATERALLY IN ALL SIN. HEART SOUNDS S1 AND S2 HEARD IN ALL SIN. BOWEL SOUNDS SLUGGISH X 4. SKIN INTACT WITHOUT REDNESS. IV TO RFA PATENT WITHOUT REDNESS. DENIES PAIN. DENIES NEEDS. STATES IS DISCHARGING TODAY. WILL CHECK ON THIS. FALL PRECAUTIONS IN PLACE. BED LOW. CALL MAHARAJ ANDPERSONAL ITEMS IN REACH. WILL CONTINUE TO MONITOR.
--- NOTE | 2018-08-30 09:36 | MORECARE ---
CASE MANAGEMENT DISCHARGE SUMMARY PATIENT: JAVIER PENNY UNIT: [id number] ADM DATE: 08/28/18 AGE: 87 : 32 SEX: M ROOM/BED: D.2228 AUTHOR: GONZÁLEZ OLVERA PHYSICIAN: REFERRING PHYSICIAN: JORGE OZUNA MD DATE OF SERVICE: 08/30/18 Discharge Plan Patient Name: JAVIER PENNY Facility: [facility]:[place] : 1930 Planned Disposition: Home Anticipated Discharge Date: 08/30/18 Discharge Date: Expected LOS: 2 Initial Reviewer: [email or web address] Initial Review Date: 08/29/2018 Generated: 08/30/18 10:35 am Comments DCP- Discharge Planning Updated by [email or web address]: Suzanne Solitario on 08/30/18 8:[address] Patient Name: JAVIER PENNY Encounter No: [id number] : 1930 Primary Insurance: MEDICARE A & B Anticipated DC Date: 08-30-2018 Planned Disposition: Home External Planned Provider: : DCP follow-up note: Patient and family in agreement with discharge plan. No changes to plan. He has his walker in the room. Case management will follow and assist as needed. Suzanne Solitario DCP- Discharge Planning Updated by [email or web address]: Suzanne Solitario on 08/29/18 12:[address] Patient Name: JAVIER PENNY Admission Status: ER Accout number: [id number] Admission Date: 08-28-2018 : 1930 Admission Diagnosis: Attending: JORGE OZUNA Current LOS: 1 Anticipated DC Date: 08-30-2018 Planned Disposition: Home Primary Insurance: MEDICARE A & B Discharge Planning Comments: CM met with patient to complete initial dc planning assessment. CM educated patient on the CM role and verbal consent given by patient to complete assessment. Patient lives at home with his grand daughter and her . At discharge patient plans to return and feels this is a safe discharge. CM discussed availability of home health, rehab services, and medical equipment. Patient's grand daughter states that the patient needs a walker. TANYA for Noe'Cruz signed. CM will continue to follow and will assist as needed with dc plans/needs. Field Support Rep: Suzanne Solitario DCPIA - Discharge Planning Initial Assessment Updated by [email or web address]: Suzanne Solitario on 08/29/18 1:30 pm * Is the patient Alert and Oriented? Yes * How many steps to enter\exit or inside your home? 2/0 * PCP Dr. Ward * Pharmacy [place] * Preadmission Environment Home with Family * ADLs Partial Dependent * Partial ADLs (Assistance needed) Ambulation * Equipment None * List name and contact numbers for known caregivers / representatives who currently or will assist patient after discharge: Jesika Streeter - grand daughter - [phone] * Verbal permission to speak to the caregivers and representatives has been obtained from the patient. Yes * Community resources currently utilized None * Additional services required to return to the preadmission environment? Yes * Can the patient safely return to the preadmission environment? Yes * Has this patient been hospitalized within the prior 30 days at any hospital? No Coverage Notice Reviewer: [id number] Solitario Notice Issued Date-Time: 08/29/2018 9:42 Notice Type: Medicare Outpatient Observation Notice Notice Delivered To: Patient Relationship to Patient: Self Licensed Occupational Therapy Assistant Name: Delivery Method: HAND - Hand Delivered Olivia Days: Prior Verbal Notification: Recipient Understood Notice: Yes Recipient Signature: Med Rec Note Co-signed by Attending: Coverage Notice Comment: GABBY explained, signed, given, copy placed in MR. Signed by his grand daughter per his request, but she signed his name. Reviewer: [email or web address] Ashlyn Solitario Notice Issued Date-Time: 08/29/2018 13:38 Notice Type: Patient Choice Letter Notice Delivered To: Family Member Relationship to Patient: Granddaughter Licensed Occupational Therapy Assistant Name: Jesika Streeter Delivery Method: HAND - Hand Delivered Olivia Days: Prior Verbal Notification: Recipient Understood Notice: Yes Recipient Signature: Yes Med Rec Note Co-signed by Attending: Coverage Notice Comment: TANYA for Pedro Mccoy DP export: 08/29/18 12:42 p Patient Name: JAVIER PENNY Page 11773 at 0936 All edits/amendments must be made on the electronic document DICTATION DATE: 08/30/18934 INSTRUMENT WORKER: RICHIE 08/30/18934 RPT#: [id number] DC DATE: STATUS: ADM IN [facility] [address] [place] [address] END OF REPORT
--- NOTE | 2018-08-30 09:56 | NUR ---
ATTEMPTED TO GET DISCHARGE PAPERS SIGNED. STATED WANTS TO WAIT UNTIL FAMILY BACK IN ROOM.
--- NOTE | 2018-08-30 10:36 | NUR ---
DISCHARGE EDUCATION PROVIDED BOTH WRITTEN AND VERBAL. PATIENT AND FAMILY VERBALIZED UNDERSTANDING. DENIES FURTHER QUESTION. IV REMOVED FROM RFA WITH TIP INTACT. DENIES FURTHER NEEDS. TLSO BRACE PROVIDED. PT AND FAMILY SHOWED HOW TO APPLY BRACE. BRACE APPLIED TO PATIENT. WALKER PROVIDED. PATIENT DISCHARGED HOME WITH FAMILY WITH ALL BELONGINGS.
--- NOTE | 2018-08-31 15:33 | MORECARE ---
CASE MANAGEMENT DISCHARGE SUMMARY PATIENT: JAVIER PENNY UNIT: [id number] ADM DATE: 08/28/18 AGE: 87 : 32 SEX: M ROOM/BED: D.2228 AUTHOR: GONZÁLEZ OLVERA PHYSICIAN: REFERRING PHYSICIAN: JORGE OZUNA MD DATE OF SERVICE: 08/31/18 Discharge Plan Patient Name: JAVIER PENNY Facility: [facility]:[place] : 1930 Planned Disposition: Home Anticipated Discharge Date: 08/30/18 Discharge Date: 08/30/2018 Expected LOS: 2 Initial Reviewer: [email or web address] Initial Review Date: 08/29/2018 Generated: 08/31/18 4:32 pm Comments DCP- Discharge Planning Updated by [email or web address]: Suzanne Solitario on 08/30/18 8:[address] Patient Name: JAVIER PENNY Encounter No: [id number] : 1930 Primary Insurance: MEDICARE A & B Anticipated DC Date: 08-30-2018 Planned Disposition: Home External Planned Provider: : DCP follow-up note: Patient and family in agreement with discharge plan. No changes to plan. He has his walker in the room. Case management will follow and assist as needed. Suzanne Solitario DCP- Discharge Planning Updated by [id number]: Suzanne Solitario on 08/29/18 12:[address] Patient Name: JAVIER PENNY Admission Status: ER Accout number: [id number] Admission Date: 08-28-2018 : 1930 Admission Diagnosis: Attending: JORGE OZUNA Current LOS: 1 Anticipated DC Date: 08-30-2018 Planned Disposition: Home Primary Insurance: MEDICARE A & B Discharge Planning Comments: CM met with patient to complete initial dc planning assessment. CM educated patient on the CM role and verbal consent given by patient to complete assessment. Patient lives at home with his grand daughter and her . At discharge patient plans to return and feels this is a safe discharge. CM discussed availability of home health, rehab services, and medical equipment. Patient's grand daughter states that the patient needs a walker. TANYA for Pedro signed. CM will continue to follow and will assist as needed with dc plans/needs. Elevator Serviceman: Suzanne Solitario DCPIA - Discharge Planning Initial Assessment Updated by [email or web address]: Suzanne Solitario on 08/29/18 1:30 pm * Is the patient Alert and Oriented? Yes * How many steps to enter\exit or inside your home? 2/0 * PCP Dr. Ward * Pharmacy [place] * Preadmission Environment Home with Family * ADLs Partial Dependent * Partial ADLs (Assistance needed) Ambulation * Equipment None * List name and contact numbers for known caregivers / representatives who currently or will assist patient after discharge: Jesika Streeter - grand daughter - [phone] * Verbal permission to speak to the caregivers and representatives has been obtained from the patient. Yes * Community resources currently utilized None * Additional services required to return to the preadmission environment? Yes * Can the patient safely return to the preadmission environment? Yes * Has this patient been hospitalized within the prior 30 days at any hospital? No Coverage Notice Reviewer: [id number] Ashlyn Solitario Notice Issued Date-Time: 08/29/2018 9:42 Notice Type: Medicare Outpatient Observation Notice Notice Delivered To: Patient Relationship to Patient: Self Spray Booth Operator Name: Delivery Method: HAND - Hand Delivered Olivia Days: Prior Verbal Notification: Recipient Understood Notice: Yes Recipient Signature: Med Rec Note Co-signed by Attending: Coverage Notice Comment: GABBY explained, signed, given, copy placed in MR. Signed by his grand daughter per his request, but she signed his name. Reviewer: [id number] Ashlyn Solitario Notice Issued Date-Time: 08/29/2018 13:38 Notice Type: Patient Choice Letter Notice Delivered To: Family Member Relationship to Patient: Granddaughter Spray Booth Operator Name: Jesika Streeter Delivery Method: HAND - Hand Delivered Olivia Days: Prior Verbal Notification: Recipient Understood Notice: Yes Recipient Signature: Yes Med Rec Note Co-signed by Attending: Coverage Notice Comment: TANYA for Pedro Mccoy DP export: 08/30/18 8:36 a Patient Name: JAVIER PENNY Page [phone] at 1533 All edits/amendments must be made on the electronic document DICTATION DATE: 08/31/18 153 WELDING MACHINE FEEDER: RICHIE 08/31/18 1532 RPT#: [id number] DC DATE:08/30/18 STATUS: DIS IN [facility] [address] [place] [address] END OF REPORT
== END 2018-08-30 10:41 | disposition home or self-care (01) ==
LOC: D.ER 08:30 → D.EDHOLD 10:56 → OBSVTIME 10:57 → D.MS 11:49
PROVIDERS: Family Medicine; ADMIT Family Medicine; ATTEND Family Medicine
DX: S22.089A Unspecified fracture of T11-T12 vertebra, initial encounter for closed fracture (principal); W18.2XXA Fall in (into) shower or empty bathtub, initial encounter; I71.4 Abdominal aortic aneurysm, without rupture; T14.8XXA Other injury of unspecified body region, initial encounter; I10 Essential (primary) hypertension; I48.91 Unspecified atrial fibrillation

== ENCOUNTER 2018-09-03 18:02 | Inpatient (IN) | payer MEDICARE, BC ==
[~2018-09-03 18:02] MED LIST changes: +ATIVAN1 MG PO; +HYDROCODON-ACET15 ML PO; +PERCOCET 10-321 EAC1 PO
[2018-09-03 18:49] LABS: HEMOGLOBIN 15.1 g/dL (13.5-17.5); MCH 30.9 pg (26.0-34.0); MCHC 33.6 g/dL (31.0-37.0); MCV 92.2 fL (80.0-100.0); MEAN PLATELET VOLUME 11.4 fL (7.4-10.4); PLATELET COUNT 144 10x3/uL (130-400); RBC 4.88 10x6/uL (4.20-6.10); RDW 13.1 % (11.5-14.5); WBC 6.8 10x3/uL (4.8-10.8)
[2018-09-03 19:15] LABS: BASOPHILS 2 % (0-2); EOSINOPHILS 4 % (0-7); LYMPHOCYTES 13 % (15-50); MONOCYTES 11 % (2-11); NEUTROPHILS 69 % (40-80)
[2018-09-03 19:16] LABS: PLATELET ESTIMATE NORMAL
[2018-09-03 19:18] LABS: ALBUMIN 3.5 g/dL (3.4-5.0); ALKALINE PHOSPHATASE 97 U/L (46-116); ALT (SGPT) 28 U/L (10-68); BILIRUBIN - TOTAL 0.96 mg/dL (0.2-1.3); CALC OSMOLALITY 278 mosm/kg (275-300); CALCIUM 8.6 mg/dL (8.5-10.1); CARBON DIOXIDE 28.7 mmol/L (21.0-32.0); CHLORIDE - SERUM 103 mmol/L (98-107); GLUCOSE 102 mg/dL (74-106); POTASSIUM - SERUM 3.7 mmol/L (3.5-5.1); PROTEIN - SERUM 7.3 g/dL (6.4-8.2); SODIUM 139 mmol/L (136-145); UREA NITROGEN 15 mg/dL (7-18); eGFR NON AFRICAN AMERICAN 75 mL/min (90-120)
[2018-09-03 19:20] LABS: CKMB 1.5 U/L (0.0-3.6); CREATINE KINASE 31 UL (21-232); MAGNESIUM - SERUM 2.2 mg/dL (1.8-2.4); PRO BNP 1135 pg/mL (0-450)
[2018-09-03 19:21] LABS: TROPONIN-I < 0.017 ng/mL (0.000-0.060)
--- NOTE | 2018-09-03 20:00 | NUR ---
urine collected and sent to lab.
[2018-09-03 20:07] LABS: APPEARANCE CLEAR (CLEAR); BILIRUBIN NEGATIVE (NEGATIVE); COLOR STRAW (YELLOW); GLUCOSE NEGATIVE (NEGATIVE); KETONE SMALL mg/dL (NEGATIVE); NITRITE NEGATIVE (NEGATIVE); PROTEIN NEGATIVE (NEGATIVE); SPECIFIC GRAVITY 1.015 (1.005-1.020); UROBILINOGEN NORMAL (NORMAL)
[2018-09-03 20:08] LABS: BACTERIA FEW /hpf (NONE SEEN); EPITHELIAL CELLS OCC /hpf (0-5); RED CELLS - URINE 0-5 /hpf (0-5); WHITE CELLS - URINE 0-5 /hpf (0-5)
[2018-09-03 20:14] LABS: UDS - AMPHET NEGATIVE QUAL (NEGATIVE); UDS - BARB NEGATIVE QUAL (NEGATIVE); UDS - BENZO NEGATIVE QUAL (NEGATIVE); UDS - COCAINE NEGATIVE QUAL (NEGATIVE); UDS - OPIATE POSITIVE QUAL (NEGATIVE); UDS - PCP NEGATIVE QUAL (NEGATIVE); UDS - THC NEGATIVE QUAL (NEGATIVE)
--- NOTE | 2018-09-03 22:15 | NUR ---
PT ARRIVED TO FLOOR BY BED, REPORT TAKEN FROM COSTA VAZ RN IN ER, VITALS STABLE. NO S/S OF DISTRESS NOTED. INTRODUCED SELF TO PT. PT DENIES FURTHER NEEDS AT THIS TIME. CALL LIGHT IN REACH. WILL CTM.
[2018-09-04] VITALS (7 sets, daily range): BP systolic 139–153; BP diastolic 80–92; BMI 25.5
--- NOTE | 2018-09-04 03:03 | NUR ---
ADMINISTERED ORDERED ANALGESIC FOR COMPLAINTS OF PAIN IN LOWER BACK, PT STATES PAIN OF A 7 ON A SCALE OF 0-10.
--- NOTE | 2018-09-04 04:00 | NUR ---
I have reviewed this patient and I concur with the Shift Assessment completed by the Licensed Practical Nurse today this shift.
[2018-09-04 05:23] LABS: BASOPHILS 0.2 % (0-2); HEMATOCRIT 42.6 % (42.0-54.0); HEMOGLOBIN 14.2 g/dL (13.5-17.5); IMMATURE GRANULOCYTES 0.2 % (0-5); LYMPHOCYTES 17.8 % (15-50); MCH 30.5 pg (26.0-34.0); MCHC 33.3 g/dL (31.0-37.0); MCV 91.6 fL (80.0-100.0); MEAN PLATELET VOLUME 11.6 fL (7.4-10.4); MONOCYTES 11.2 % (2-11); NEUTROPHILS 67.6 % (40-80); PLATELET COUNT 148 10x3/uL (130-400); RBC 4.65 10x6/uL (4.20-6.10); RDW 13.3 % (11.5-14.5); WBC 5.3 10x3/uL (4.8-10.8)
[2018-09-04 05:54] LABS: ALBUMIN 3.3 g/dL (3.4-5.0); ALKALINE PHOSPHATASE 90 U/L (46-116); ALT (SGPT) 24 U/L (10-68); BILIRUBIN - TOTAL 0.91 mg/dL (0.2-1.3); CALC OSMOLALITY 278 mosm/kg (275-300); CALCIUM 8.9 mg/dL (8.5-10.1); CARBON DIOXIDE 27.2 mmol/L (21.0-32.0); CHLORIDE - SERUM 105 mmol/L (98-107); CKMB 1.1 U/L (0.0-3.6); CREATINE KINASE 34 UL (21-232); GLUCOSE 97 mg/dL (74-106); POTASSIUM - SERUM 3.5 mmol/L (3.5-5.1); PROTEIN - SERUM 6.9 g/dL (6.4-8.2); SODIUM 140 mmol/L (136-145); TROPONIN-I < 0.017 ng/mL (0.000-0.060); UREA NITROGEN 13 mg/dL (7-18)
[2018-09-04 05:55] LABS: CREATININE - SERUM 0.7 mg/dL (0.6-1.3); eGFR NON AFRICAN AMERICAN > 90 mL/min (90-120)
--- NOTE | 2018-09-04 09:00 | NUR ---
PT RESTING IN BED, SHIFT ASSESSMENT PERFORMED. ASSISTED PT TO BR AND BACK TO BED, DENIES ANY FURTHER NEEDS AT THIS TIME. WILL CONT TO FOLLOW POC
--- NOTE | 2018-09-04 11:49 | NUR ---
PT RESTING IN BED, FAMILY AT BEDSIDE. DENIES ANY NEEDS AT THIS TIME, WILL CONT TO FOLLOW POC
--- NOTE | 2018-09-04 17:07 | NUR ---
ORTHOSTATIC BP: LAYING 158/85 SITTING 149/83 STANDING 152/91
--- NOTE | 2018-09-04 17:41 | NUR ---
ASSISTED PT TO BR AND BACK TO SIDE OF BED, DENIES ANY OTHER NEEDS AT THIS TIME, WILL CONT TO FOLLOW POC
--- NOTE | 2018-09-04 19:49 | NUR ---
EVENING ROUNDS COMPLETED. REPORT RECEIVED. PT SITTING UP IN BED WITH EYES OPEN, RR EVEN AND UNLABORED. BED IN LOW POSITION. NO S/S OF DISTRESS NOTED. INTRODUCED SELF TO PT. PT STATES HE IS HAVING PAIN IN HIS BACK, ADMINISTERED ORDERED ACETAMINOPHEN 1000 MG PO, PT STATES PAIN IS AN 8 ON A SCALE OF 0-10. PT DENIES FURTHER NEEDS AT THIS TIME. CALL LIGHT IN REACH. WILL CTM.
[2018-09-05 04:00] VITALS: BP 159/93
[2018-09-05 05:58] LABS: BASOPHILS 0.3 % (0-2); EOSINOPHILS 3.1 % (0-7); HEMOGLOBIN 15.7 g/dL (13.5-17.5); IMMATURE GRANULOCYTES 0.3 % (0-5); LYMPHOCYTES 14.8 % (15-50); MCH 30.9 pg (26.0-34.0); MCHC 34.1 g/dL (31.0-37.0); MCV 90.6 fL (80.0-100.0); MEAN PLATELET VOLUME 11.5 fL (7.4-10.4); NEUTROPHILS 71.5 % (40-80); PLATELET COUNT 149 10x3/uL (130-400); RBC 5.08 10x6/uL (4.20-6.10); RDW 12.9 % (11.5-14.5)
[2018-09-05 06:15] LABS: CALC OSMOLALITY 277 mosm/kg (275-300); CALCIUM 8.9 mg/dL (8.5-10.1); CARBON DIOXIDE 25.5 mmol/L (21.0-32.0); CHLORIDE - SERUM 104 mmol/L (98-107); CREATININE - SERUM 0.8 mg/dL (0.6-1.3); GLUCOSE 99 mg/dL (74-106); POTASSIUM - SERUM 3.3 mmol/L (3.5-5.1); SODIUM 139 mmol/L (136-145); UREA NITROGEN 13 mg/dL (7-18); eGFR NON AFRICAN AMERICAN > 90 mL/min (90-120)
[2018-09-05 06:31] LABS: WBC 6.9 10x3/uL (4.8-10.8)
[2018-09-05 07:20] VITALS: BP 155/92
--- NOTE | 2018-09-05 09:00 | NUR ---
ASSISTED PT TO BATHROOM AND TO CHAIR, SHIFT ASSESSMENT PERFORMED, DENIES ANY NEEDS AT THIS TIME, WILL CONT TO FOLLOW POC
[2018-09-05 10:46] VITALS: BP 145/60
--- NOTE | 2018-09-05 11:54 | NUR ---
PT RESTING IN CHAIR. FAMILY AT BEDSIDE, DENIES ANY NEEDS AT THIS TIME, WILL CONT TO FOLLOW POC
--- NOTE | 2018-09-05 15:56 | MORECARE ---
CASE MANAGEMENT DISCHARGE SUMMARY PATIENT: JAVIER PENNY UNIT: [id number] ADM DATE: 09/03/18 AGE: 87 : 32 SEX: M ROOM/BED: D.2113 AUTHOR: GONZÁLEZ OLVERA PHYSICIAN: REFERRING PHYSICIAN: DILLAN CHOI MD DATE OF SERVICE: 09/05/18 Discharge Plan Patient Name: JAVIER PENNY Facility: [facility]:[place] : 1930 Planned Disposition: Home Anticipated Discharge Date: Discharge Date: Expected LOS: Initial Reviewer: [email or web address] Initial Review Date: 09/05/2018 Generated: 09/05/18 4:56 pm Patient Name: JAVIER PENNY Page [phone] at 1556 All edits/amendments must be made on the electronic document DICTATION DATE: 09/05/18 1556 KITCHEN HELP HANDYMAN: RICHIE 09/05/18 1556 RPT#: [id number] DC DATE: STATUS: ADM IN [facility] [address] [place] [address] END OF REPORT
--- NOTE | 2018-09-05 16:04 | MORECARE ---
CASE MANAGEMENT DISCHARGE SUMMARY PATIENT: JAVIER PENNY UNIT: [id number] ADM DATE: 09/03/18 AGE: 87 : 32 SEX: M ROOM/BED: D.2119 AUTHOR: GONZÁLEZ OLVERA PHYSICIAN: REFERRING PHYSICIAN: DILLAN CHOI MD DATE OF SERVICE: 09/05/18 Discharge Plan Patient Name: JAVIER PENNY Facility: [facility]:[place] : 1930 Planned Disposition: Home Anticipated Discharge Date: Discharge Date: Expected LOS: Initial Reviewer: [id number] Initial Review Date: 09/05/2018 Generated: 09/05/18 5:04 pm Comments DCP- Discharge Planning Updated by [id number]: Kaushik Nguyễn on 09/05/18 3:[address] Patient Name: JAVIER PENNY Admission Status: ER Accout number: [id number] Admission Date: 09-03-2018 : 1930 Admission Diagnosis:PNEUMONIA, UNSPECIFIED ORGANISM Attending: DILLAN CHOI Current LOS: 2 Anticipated DC Date: Planned Disposition: Home Primary Insurance: MEDICARE A & B Discharge Planning Comments: CM MET WITH PT AND FAMILY IN ROOM TO DISCUSS DISCHARGE PLANNING AND NEEDS. JAVIER PENNY provided verbal consent to discuss current and ongoing needs with/in the presence of: GRANDDAUGHTERS, TANNER AND KRISTIN. PT REPORTS LIVING AT HOME DEPENDENT ON GRANDDAUGHTER AND HER FOR MEDICATION MANAGEMENT AND TRANSPORTATION. PT HAS STANDARD WALKER, SHOWER CHAIR AND BACK BRACE (FOR T-12 FRACTURE). PT'S MEDICAL EQUIPMENT PROVIDER IS [employer]. PT HAS NO OUTSIDE SERVICES ASSISTING IN THE HOME. CM DISCUSSED AVAILABILITY OF HOME HEALTH, REHAB SERVICES AND MEDICAL EQUIPMENT. PT AND FAMILY REPORT NO ANTICIPATED DISCHARGE NEEDS, PT PLANS TO DISCHARGE HOME WITH FAMILY, REPORTS FAMILY WILL PICK PT UP FOR DISCHARGE HOME. PT PLANS TO DISCHARGE HOME WITH FAMILY ASSISTANCE. NO ANTICIPATED DISCHARGE NEEDS, FAMILY TO TRANSPORT HOME AT DISCHARGE. CM TO FOLLOW AND ASSIST IF NEEDED. Strategic Account Director: Kaushik Nguyễn DCPIA - Discharge Planning Initial Assessment Updated by [id number]: Kaushik Nguyễn on 09/05/18 3:57 pm * Is the patient Alert and Oriented? Yes * How many steps to enter\exit or inside your home? * PCP DR POTTER * Pharmacy [facility] ([place]) * Preadmission Environment Home with Family * ADLs Partial Dependent * Partial ADLs (Assistance needed) Medication Management * Equipment Back Brace Shower Chair Walker * Other Equipment [employer] - MEDICAL EQUIPMENT PROVIDER PREFERENCE * List name and contact numbers for known caregivers / representatives who currently or will assist patient after discharge: TANNER BLISS, GRANDDAUGHTER, KRISTIN PENNY, GRANDDAUGHTER, * Verbal permission to speak to the caregivers and representatives has been obtained from the patient. Yes * Community resources currently utilized None * Please name any agencies selected above. NONE * Additional services required to return to the preadmission environment? No * Can the patient safely return to the preadmission environment? Yes * Has this patient been hospitalized within the prior 30 days at any hospital? Yes Last DP export: 09/05/18 2:56 pm Patient Name: JAVIER PENNY Page [phone] at 1604 All edits/amendments must be made on the electronic document DICTATION DATE: 09/05/18 160 APPAREL EMBROIDERY DIGITIZER: RICHIE 09/05/18 160 RPT#: [id number] DC DATE: STATUS: ADM IN [facility] [address] [place] [address] END OF REPORT
[2018-09-05 18:32] VITALS: BP 130/86
--- NOTE | 2018-09-05 19:39 | NUR ---
PT IN BED. DENIES NEEDS AT THIS TIME.
[2018-09-05 21:24] VITALS: BP 124/81
[2018-09-06] VITALS: BP 138/82
[2018-09-06 04:00] VITALS: BP 142/91
[2018-09-06 05:56] LABS: BASOPHILS 0.5 % (0-2); EOSINOPHILS 4.7 % (0-7); HEMATOCRIT 46.6 % (42.0-54.0); HEMOGLOBIN 15.7 g/dL (13.5-17.5); IMMATURE GRANULOCYTES 0.2 % (0-5); LYMPHOCYTES 21.4 % (15-50); MCH 30.8 pg (26.0-34.0); MCHC 33.7 g/dL (31.0-37.0); MCV 91.6 fL (80.0-100.0); MEAN PLATELET VOLUME 11.5 fL (7.4-10.4); MONOCYTES 10.9 % (2-11); NEUTROPHILS 62.3 % (40-80); PLATELET COUNT 157 10x3/uL (130-400); RBC 5.09 10x6/uL (4.20-6.10); WBC 5.9 10x3/uL (4.8-10.8)
[2018-09-06 06:12] LABS: CALC OSMOLALITY 278 mosm/kg (275-300); CALCIUM 9.1 mg/dL (8.5-10.1); CARBON DIOXIDE 27.4 mmol/L (21.0-32.0); CHLORIDE - SERUM 103 mmol/L (98-107); CREATININE - SERUM 0.9 mg/dL (0.6-1.3); GLUCOSE 108 mg/dL (74-106); SODIUM 139 mmol/L (136-145); UREA NITROGEN 13 mg/dL (7-18); eGFR NON AFRICAN AMERICAN 85 mL/min (90-120)
[2018-09-06 06:15] LABS: POTASSIUM - SERUM 3.7 mmol/L (3.5-5.1)
[2018-09-06 07:56] VITALS: BP 163/82
[2018-09-06] MEDS ORDERED: LEVAQUIN750 MG PO (10:44)
--- NOTE | 2018-09-06 11:50 | MORECARE ---
CASE MANAGEMENT DISCHARGE SUMMARY PATIENT: JAVIER PENNY UNIT: [id number] ADM DATE: 09/03/18 AGE: 87 : 32 SEX: M ROOM/BED: D.2114 AUTHOR: GONZÁLEZ OLVERA PHYSICIAN: REFERRING PHYSICIAN: DILLAN CHOI MD DATE OF SERVICE: 09/06/18 Discharge Plan Patient Name: JAVIER PENNY Facility: [facility]:[place] : 1930 Planned Disposition: Home Anticipated Discharge Date: 08/30/18 Discharge Date: Expected LOS: -4 Initial Reviewer: [id number] Initial Review Date: 09/05/2018 Generated: 09/06/18 12:49 pm Comments DCP- Discharge Planning Updated by [email or web address]: Kaushik Nguyễn on 09/05/18 3:[address] Patient Name: JAVIER PENNY Admission Status: ER Accout number: [id number] Admission Date: 09-03-2018 : 1930 Admission Diagnosis:PNEUMONIA, UNSPECIFIED ORGANISM Attending: DILLAN CHOI Current LOS: 2 Anticipated DC Date: Planned Disposition: Home Primary Insurance: MEDICARE A & B Discharge Planning Comments: CM MET WITH PT AND FAMILY IN ROOM TO DISCUSS DISCHARGE PLANNING AND NEEDS. JAVIER PENNY provided verbal consent to discuss current and ongoing needs with/in the presence of: GRANDDAUGHTERS, TANNER AND KRISTIN. PT REPORTS LIVING AT HOME DEPENDENT ON GRANDDAUGHTER AND HER FOR MEDICATION MANAGEMENT AND TRANSPORTATION. PT HAS STANDARD WALKER, SHOWER CHAIR AND BACK BRACE (FOR T-12 FRACTURE). PT'S MEDICAL EQUIPMENT PROVIDER IS [employer]. PT HAS NO OUTSIDE SERVICES ASSISTING IN THE HOME. CM DISCUSSED AVAILABILITY OF HOME HEALTH, REHAB SERVICES AND MEDICAL EQUIPMENT. PT AND FAMILY REPORT NO ANTICIPATED DISCHARGE NEEDS, PT PLANS TO DISCHARGE HOME WITH FAMILY, REPORTS FAMILY WILL PICK PT UP FOR DISCHARGE HOME. PT PLANS TO DISCHARGE HOME WITH FAMILY ASSISTANCE. NO ANTICIPATED DISCHARGE NEEDS, FAMILY TO TRANSPORT HOME AT DISCHARGE. CM TO FOLLOW AND ASSIST IF NEEDED. Computer Graphic Designer: Kaushik Nguyễn DCPIA - Discharge Planning Initial Assessment Updated by [id number]: Kaushik Nguyễn on 09/05/18 3:57 pm * Is the patient Alert and Oriented? Yes * How many steps to enter\exit or inside your home? * PCP DR POTTER * [facility] * Preadmission Environment Home with Family * ADLs Partial Dependent * Partial ADLs (Assistance needed) Medication Management * Equipment Back Brace Shower Chair Walker * Other Equipment [employer] - MEDICAL EQUIPMENT PROVIDER PREFERENCE * List name and contact numbers for known caregivers / representatives who currently or will assist patient after discharge: TANNER BLISS, GRANDDAUGHTER, KRISTIN PENNY, GRANDDAUGHTER, * Verbal permission to speak to the caregivers and representatives has been obtained from the patient. Yes * Community resources currently utilized None * Please name any agencies selected above. NONE * Additional services required to return to the preadmission environment? No * Can the patient safely return to the preadmission environment? Yes * Has this patient been hospitalized within the prior 30 days at any hospital? Yes Coverage Notice Reviewer: [id number] Ashlyn Nguyễn Notice Issued Date-Time: 09/06/2018 10:55 Notice Type: IM Discharge Notice Notice Delivered To: Patient Relationship to Patient: Bus Mechanic Name: Delivery Method: HAND - Hand Delivered Olivia Days: Prior Verbal Notification: Recipient Understood Notice: Yes Recipient Signature: Yes Med Rec Note Co-signed by Attending: Coverage Notice Comment: Last DP export: 09/05/18 3:04 pm Patient Name: JAVIER PENNY Page [id number] at 1150 All edits/amendments must be made on the electronic document DICTATION DATE: 09/06/18 1149 RAMP FLIGHT ATTENDANT: RICHIE 09/06/18 1149 RPT#: [id number] DC DATE: STATUS: ADM IN [facility] [address] [place] [address] END OF REPORT
--- NOTE | 2018-09-06 11:57 | MORECARE ---
CASE MANAGEMENT DISCHARGE SUMMARY PATIENT: JAVIER PENNY UNIT: [id number] ADM DATE: 09/03/18 AGE: 87 : 32 SEX: M ROOM/BED: D.2113 AUTHOR: GONZÁLEZ OLVERA PHYSICIAN: REFERRING PHYSICIAN: DILLAN CHOI MD DATE OF SERVICE: 09/06/18 Discharge Plan Patient Name: JAVIER PENNY Facility: [facility]:[place] : 1930 Planned Disposition: Home Anticipated Discharge Date: 08/30/18 Discharge Date: Expected LOS: -4 Initial Reviewer: [id number] Initial Review Date: 09/05/2018 Generated: 09/06/18 12:57 pm Comments DCP- Discharge Planning Updated by [id number]: Kaushik Nguyễn on 09/06/18 10:[address] Patient Name: JAVIER PENNY Encounter No: [id number] : 1930 Primary Insurance: MEDICARE A & B Anticipated DC Date: 08-30-2018 DCP follow-up note: CM MET WITH PT IN ROOM TO DISCUSS DISCHARGE NEEDS AND PLANNING. CM DISCUSSED AVAILABILITY OF HOME HEALTH, REHAB SERVICES AND MEDICAL EQUIPMENT. PT DENIES DISCHARGE NEEDS. DAUGHTER TO TRANSPORT HOME AT DISCHARGE. IMPORTANT MESSAGE FROM MEDICARE PROVIDED AND EXPLAINED. EMERY Maya DCP- Discharge Planning Updated by [email or web address]: Kaushik Nguyễn on 09/05/18 3:[address] Patient Name: JAVIER PENNY Admission Status: ER Accout number: [id number] Admission Date: 09-03-2018 : 1930 Admission Diagnosis:PNEUMONIA, UNSPECIFIED ORGANISM Attending: DILLAN CHOI Current LOS: 2 Anticipated DC Date: Planned Disposition: Home Primary Insurance: MEDICARE A & B Discharge Planning Comments: CM MET WITH PT AND FAMILY IN ROOM TO DISCUSS DISCHARGE PLANNING AND NEEDS. JAIVER PENNY provided verbal consent to discuss current and ongoing needs with/in the presence of: GRANDDAUGHTERS, TANNER AND KRISTIN. PT REPORTS LIVING AT HOME DEPENDENT ON GRANDDAUGHTER AND HER FOR MEDICATION MANAGEMENT AND TRANSPORTATION. PT HAS STANDARD WALKER, SHOWER CHAIR AND BACK BRACE (FOR T-12 FRACTURE). PT'S MEDICAL EQUIPMENT PROVIDER IS [employer]. PT HAS NO OUTSIDE SERVICES ASSISTING IN THE HOME. CM DISCUSSED AVAILABILITY OF HOME HEALTH, REHAB SERVICES AND MEDICAL EQUIPMENT. PT AND FAMILY REPORT NO ANTICIPATED DISCHARGE NEEDS, PT PLANS TO DISCHARGE HOME WITH FAMILY, REPORTS FAMILY WILL PICK PT UP FOR DISCHARGE HOME. PT PLANS TO DISCHARGE HOME WITH FAMILY ASSISTANCE. NO ANTICIPATED DISCHARGE NEEDS, FAMILY TO TRANSPORT HOME AT DISCHARGE. CM TO FOLLOW AND ASSIST IF NEEDED. Pastry Mixer: Kaushik Nguyễn DCPIA - Discharge Planning Initial Assessment Updated by GIA: Kaushik Nguyễn on 09/05/18 3:57 pm * Is the patient Alert and Oriented? Yes * How many steps to enter\exit or inside your home? * PCP DR POTTER * Pharmacy [facility] ([email or web address]) * Preadmission Environment Home with Family * ADLs Partial Dependent * Partial ADLs (Assistance needed) Medication Management * Equipment Back Brace Shower Chair Walker * Other Equipment [employer] - MEDICAL EQUIPMENT PROVIDER PREFERENCE * List name and contact numbers for known caregivers / representatives who currently or will assist patient after discharge: TANNER BLISS, GRANDDAUGHTER, KRISTIN PENNY, GRANDDAUGHTER, * Verbal permission to speak to the caregivers and representatives has been obtained from the patient. Yes * Community resources currently utilized None * Please name any agencies selected above. NONE * Additional services required to return to the preadmission environment? No * Can the patient safely return to the preadmission environment? Yes * Has this patient been hospitalized within the prior 30 days at any hospital? Yes Coverage Notice Reviewer: [id number] - Kaushik Nguyễn Notice Issued Date-Time: 09/06/2018 10:55 Notice Type: IM Discharge Notice Notice Delivered To: Patient Relationship to Patient: Wire Twister Name: Delivery Method: HAND - Hand Delivered Olivia Days: Prior Verbal Notification: Recipient Understood Notice: Yes Recipient Signature: Yes Med Rec Note Co-signed by Attending: Coverage Notice Comment: Last DP export: 09/06/18 10:50 am Patient Name: JAVIER PENNY Page [id number] at 1157 All edits/amendments must be made on the electronic document DICTATION DATE: 09/06/18 1157 CUSTOM GRINDER: RICHIE 09/06/18 1157 RPT#: [id number] DC DATE: STATUS: ADM IN [facility] [address] [place] [address] END OF REPORT
[2018-09-06] MEDS ORDERED: HYDROCODON-ACE1 EAC2 PO (12:27)
--- NOTE | 2018-09-06 13:17 | NUR ---
DISCHARGE INSTRUCTIONS REVIEWED WITH PT AND ALL QUESTIONS ANSWERED. PIV REMOVED WITH CATHETER TIP INTACT. ASSISTED PT TO FRONT OF HOSPITAL VIA WHEELCHAIR. PT LEFT WITH DAUGHTER
== END 2018-09-06 13:42 | disposition home or self-care (01) | DRG 194 ==
LOC: D.ER 18:02 → D.M2 20:31
PROVIDERS: Emergency Medicine; Family Medicine; Internal Medicine Nephrology; ADMIT Family Medicine; ATTEND Family Medicine
DX: J18.1 Lobar pneumonia, unspecified organism (principal); F33.1 Major depressive disorder, recurrent, moderate; S22.089D Unspecified fracture of T11-T12 vertebra, subsequent encounter for fracture with routine healing; W19.XXXD Unspecified fall, subsequent encounter; I10 Essential (primary) hypertension; Z95.0 Presence of cardiac pacemaker; F32.9 Major depressive disorder, single episode, unspecified; F41.9 Anxiety disorder, unspecified; I48.91 Unspecified atrial fibrillation

== ENCOUNTER 2018-09-14 17:11 | Emergency (ER) | payer MEDICARE, BC ==
[~2018-09-14] VITALS: Ht 182.9 cm; Wt 83.6 kg
[~2018-09-14 17:11] MED LIST changes: +HYDROCODON-ACE1 EAC2 PO; +LEVAQUIN750 MG PO
[2018-09-14 17:22] VITALS: Ht 182.9 cm; Wt 83.6 kg
[2018-09-14 18:22] LABS: BASOPHILS 0.1 % (0-2); EOSINOPHILS 4.2 % (0-7); HEMATOCRIT 44.1 % (42.0-54.0); HEMOGLOBIN 15.1 g/dL (13.5-17.5); IMMATURE GRANULOCYTES 0.3 % (0-5); MCHC 34.2 g/dL (31.0-37.0); MCV 90.6 fL (80.0-100.0); MEAN PLATELET VOLUME 11.3 fL (7.4-10.4); MONOCYTES 11.3 % (2-11); NEUTROPHILS 59.1 % (40-80); PLATELET COUNT 158 10x3/uL (130-400); RBC 4.87 10x6/uL (4.20-6.10); WBC 6.8 10x3/uL (4.8-10.8)
[2018-09-14 18:38] LABS: INR 1.11 (0.85-1.17); PROTIME 13.8 SECONDS (11.6-15.0)
[2018-09-14 18:39] LABS: APTT 33.4 SECONDS (22.8-39.4)
[2018-09-14 18:42] LABS: ALBUMIN 3.5 g/dL (3.4-5.0); ALKALINE PHOSPHATASE 145 U/L (46-116); ALT (SGPT) 16 U/L (10-68); BILIRUBIN - TOTAL 0.34 mg/dL (0.2-1.3); CALC OSMOLALITY 275 mosm/kg (275-300); CALCIUM 9.1 mg/dL (8.5-10.1); CARBON DIOXIDE 27.4 mmol/L (21.0-32.0); CHLORIDE - SERUM 103 mmol/L (98-107); CREATININE - SERUM 1.1 mg/dL (0.6-1.3); GLUCOSE 99 mg/dL (74-106); POTASSIUM - SERUM 3.6 mmol/L (3.5-5.1); PROTEIN - SERUM 7.2 g/dL (6.4-8.2); SODIUM 137 mmol/L (136-145); UREA NITROGEN 19 mg/dL (7-18); eGFR NON AFRICAN AMERICAN 67 mL/min (90-120)
[2018-09-14 18:53] LABS: CKMB 1.1 U/L (0.0-3.6); CREATINE KINASE 27 UL (21-232)
[2018-09-14 19:04] LABS: TROPONIN-I < 0.017 ng/mL (0.000-0.060)
[2018-09-14] MEDS ORDERED: PROPAFENONE HC150 MG PO (19:30)
[2018-09-14 20:08] VITALS: BP 128/65
== END 2018-09-14 20:08 | disposition home or self-care (01) ==
LOC: D.ER 17:11
PROVIDERS: Family Medicine
DX: R00.2 Palpitations (principal); I48.91 Unspecified atrial fibrillation; Z79.01 Long term (current) use of anticoagulants; I10 Essential (primary) hypertension

== ENCOUNTER 2018-10-07 20:07 | Emergency (ER) | payer MEDICARE, BC ==
[~2018-10-07] VITALS: Ht 182.9 cm; Wt 81.8 kg
[~2018-10-07 20:07] MED LIST changes: +PROPAFENONE HC150 MG PO
[2018-10-07 20:17] VITALS: Ht 182.9 cm; Wt 81.8 kg
[2018-10-07 20:44] LABS: BASOPHILS 0.3 % (0-2); HEMATOCRIT 44.6 % (42.0-54.0); IMMATURE GRANULOCYTES 0.1 % (0-5); LYMPHOCYTES 21.7 % (15-50); MCH 30.6 pg (26.0-34.0); MCHC 33.6 g/dL (31.0-37.0); MEAN PLATELET VOLUME 10.9 fL (7.4-10.4); MONOCYTES 10.2 % (2-11); NEUTROPHILS 63.7 % (40-80); PLATELET COUNT 154 10x3/uL (130-400); RDW 12.9 % (11.5-14.5); WBC 7.3 10x3/uL (4.8-10.8)
[2018-10-07 20:54] LABS: APTT 32.5 SECONDS (22.8-39.4); INR 1.16 (0.85-1.17); PROTIME 14.3 SECONDS (11.6-15.0)
[2018-10-07 21:01] LABS: ALBUMIN 3.4 g/dL (3.4-5.0); ALKALINE PHOSPHATASE 132 U/L (46-116); ALT (SGPT) 16 U/L (10-68); CALC OSMOLALITY 276 mosm/kg (275-300); CALCIUM 9.3 mg/dL (8.5-10.1); CARBON DIOXIDE 34.4 mmol/L (21.0-32.0); CHLORIDE - SERUM 99 mmol/L (98-107); GLUCOSE 114 mg/dL (74-106); POTASSIUM - SERUM 3.5 mmol/L (3.5-5.1); PROTEIN - SERUM 7.3 g/dL (6.4-8.2); SODIUM 138 mmol/L (136-145); UREA NITROGEN 13 mg/dL (7-18); eGFR NON AFRICAN AMERICAN 75 mL/min (90-120)
[2018-10-07 21:10] LABS: CREATINE KINASE 24 UL (21-232); THYROID STIMULATING HORMONE 1.44 uIU/mL (0.36-3.74); TROPONIN-I < 0.017 ng/mL (0.000-0.060)
[2018-10-07 22:12] VITALS: BP 154/70
== END 2018-10-07 22:13 | disposition home or self-care (01) ==
LOC: D.ER 20:07
PROVIDERS: Emergency Medicine
DX: Z79.01 Long term (current) use of anticoagulants (principal); R53.1 Weakness; I48.91 Unspecified atrial fibrillation

== ENCOUNTER 2019-01-17 08:43 | Outpatient (CLI) | payer MEDICARE, BC ==
[~2019-01-17] VITALS: Ht 182.9 cm; Wt 82.7 kg
--- NOTE | ~2019-01-17 | HEMODYNAMI ---
PATIENT:JAVIER PENNY MEDICAL RECORD: [id number] : 34 [facility] ADMISSION DATE: 01/17/19 Generatedon:01/17/201913:07 Patient name: JAVIER PENNY Patient #: [id number] : 1930 Date of study: 01/17/2019 Page: Of Hemodynamic Procedure Report Patient Data Patient Demographics Procedure consent was obtained First Name: JAVIER Gender: Male Last Name: ZOHAIB : 1930 Middle Initial: E Age: 88 year(s) Patient #: [id number] Race: SSN: [id number] Additional ID: [id number] Contact details Address: [address] [place] [address] ROAD State: [place] City: [place] Zip code: [address] Past Medical History Allergies Allergen Reaction Date Comments Reported Other allergy 02/08/2018 Tetanus,Keflex Admission Admission Data Admission Date: 01/17/2019 Admission Time: 8:43 Arrival Date: 01/17/2019 Arrival Time: 8:43 Admit Source: Emergency Insurance Payor: Private department health insurance, Medicare [facility] #: [id number] Height (in.): 72.05 BSA: 2.05 (m2) Height (cm.): 183 BMI: 24.78 (kg/m2) Weight (lbs.): 182.98 Weight (kg.): 83 Lab Results Lab Result Date: 01/17/2019 Lab Result Time: 0:00 Biochemistry Name Units Result Min Max BUN mg/dl 10 --(-*--)-- 7 18 Creatinine mg/dl 0.8 --(-*--)-- 0.6 1.3 eGFR ml/min 90 --(*---)-- 90 120 NONAFRICAN CBC Name Units Result Min Max Hemoglobin g/dl 15.6 --(--*-)-- 13.5 17.5 Procedure Procedure Types Cath Procedure Diagnostic Procedure LHC LHC w/Coronaries FFR/IVUS FFR Initial Sedation Charges Moderate Sedation up to 30 minutes PCI Procedure Coronary Stent Coronary Stent Initial Procedure Description Procedure Date Procedure Date: 01/17/2019 Procedure Start Time: 12:23 Procedure End Time: 12:57 Procedure Staff Name Function Nader Burk MD Performing Physician Joseline Asher RT Monitor Jaye Bull RT Scrub Any Damon RN Nurse Indication Angina Procedure Data Cath Procedure Fluoroscopy Diagnostic fluoroscopy Total fluoroscopy Time: time: 13.8 min 13.8 min Diagnostic fluoroscopy Total fluoroscopy dose: dose: 2154 mGy 2154 mGy Contrast Material Contrast Material Type Amount (ml) Isovue 300 181 Entry Location Entry Primary Successful Side Size Upsize Upsize Entry Closure Knowles ccessful Closure Location (Fr) 1 (Fr) 2 (Fr) Remarks Device Remarks Radial Right 6 Fr Mechanical artery Short Compression Estimated blood loss: 5 ml Diagnostic catheters Device Type Used For End Catheter Placement DIAGNOSTIC [place] 110cm 5 Multi-vessel Fr catheter ([id number]) Angiography Procedure Complications No complications Procedure Medications Medication Administration Route Dosage 0.9% NaCl I.V. 100 ml/hr Oxygen etCO2 Nasal cannula 2 l/min Lidocaine 2% added to field 20 Heparin Flush Bag added to field 2 bags (1000units/500ml NS) Versed I.V. 2 mg Fentanyl I.V. 50 mcg Radial Cocktail added to field 1 syringe (Verapamil 2mg/Nitro 400mcg/Heparin 1500units) Heparin Bolus I.V. 4000 units Fentanyl I.V. 50 mcg Hemodynamics Rest BSA: 2.05 (m2) O2 Consumption: Estimated: 248.18 (ml/min) O2 Consumption indexed : Estimated:121.06 (ml/min/m) Heart Rate: 90 (bpm) Pressure Samples Time Site Value (mmHg) Purpose Heart Use Rate(bpm) 12:26 LV 77/41,42 Snapshot 86 Snapshots Pre Cath Intra NCS Post Cath Vital Signs Time Heart Resp SPO2 etCO2 NIBP (mmHg) Rhythm Pain Sedation Rate (ipm) (%) (mmHg) Status Level (bpm) 12:16:38 90 19 98 36.1 128/92(109) Paced 0 (11) 10(A) , No pain 12:20:47 90 17 98 39.1 112/83(98) Paced 0 (11) 10(A) , No pain 12:24:49 91 17 98 38.2 112/76(92) Paced 0 (11) 9(A) , No pain 12:29:01 90 16 96 38.4 92/59(75) Paced 0 (11) 9(A) , No pain 12:33:01 90 17 98 45.9 99/64(83) Paced 0 (11) 9(A) , No pain 12:37:01 90 16 98 39.9 101/74(90) Paced 0 (11) 9(A) , No pain 12:41:00 90 16 97 46 104/74(86) Paced 0 (11) 9(A) , No pain 12:45:00 90 15 97 50.5 114/77(94) Paced 0 (11) 9(A) , No pain 12:49:05 90 16 98 37.7 113/74(84) Paced 0 (11) 10(A) , No pain 12:53:09 89 13 97 60.3 114/71(85) Paced 0 (11) 10(A) , No pain 12:57:07 91 3 93 42.1 96/74(89) Paced 0 (11) 10(A) , No pain Medications Time Medication Route Dose Verified Delivered Reason Not es Effectiveness by by 12:11:20 0.9% NaCl I.V. 100 Nader Any used for ml/hr Wm Damon branch retail executive 12:11:25 Oxygen etCO2 2 l/min Nader Any used for Nasal Wm Damon procedure cannula RN 12:11:30 Lidocaine 2% added 20ml Nader Nader for local to vial Wm Burk MD anesthetic field 12:11:34 Heparin Flush added 2 bags Naderterrance Terrellrey used for Bag to Wm Burk MD procedure (1000units/500ml field NS) 12:12:30 Radial Cocktail added 1 Nader Nader used for (Verapamil to syringe Wm Burk MD procedure 2mg/Nitro field 400mcg/Heparin 1500units) 12:20:09 Versed I.V. 2 mg Nader Any for sedation Wm Damon RN 12:20:17 Fentanyl I.V. 50 mcg Nader Any for sedation Wm Damon RN 12:34:29 Heparin Bolus I.V. 4000 Nader Any for bethany ified units Wm Damon anticoagulation with Dr. MOON Burk 12:49:13 Fentanyl I.V. 50 mcg Nader Agarwal for sedation Wm Damon RN Procedure Log Time Note 11:54:57 Diagnostic Cath Status : Emergency 11:55:17 Indication : Angina 11:55:49 Informed consent obtained and on chart 11:56:25 Any Damon RN sent for patient. Start room use. 11:56:26 Time tracking: Regular hours (M-F 7:00 - 5:00) 11:56:30 Plan of Care:Hemodynamics will remain stable., Cardiac rhythm will remain stable., Comfort level will be maintained., Respiratory function will remain adequate., Patient/ family verbilizes understanding of procedure., Procedure tolerated without complication., Recovers from procedure without complications.. 11:56:37 ACC Patient presents with Unstable Angina CCS Anginal Class 4--Inability to carry out any physical activity w/o angina. Angina may occur at rest. 11:56:46 Procedure Status Urgent Heart Cath (IP). 12:00:30 Admit Source: Emergency department 12:00:39 Arrival Date: 01/17/2019 8:43:00 AM 12:00:45 Insurance Payor : Private health insurance, Medicare 12:01:01 Patient Height : 72.05 inches 12:01:05 Patient Weight : 182.98 lbs 12:03:10 Lab Result : Creatinine 0.8 mg/dl 12:03:10 Lab Result : BUN 10 mg/dl 12:03:10 Lab Result : Hemoglobin 15.6 g/dl 12:03:10 Lab Result : eGFR NONAFRICAN 90 ml/min 12:03:19 1) 90+ Normal kidney functon but urine findings or structural abnormalities or genetic trait point to kidney disease. 12:03:22 Maximum allowable contrast dose (3.7 X eGFR X 0.75)250 ml. 12:03:51 Patient received from ED to CCL 2 Alert and oriented. Tansferred to table in Supine position. 12:03:52 Warm blankets applied, and lydia hugger turned on for patient comfort. 12:03:52 Correct patient and procedure confirmed by team. 12:03:54 ECG and BP/O2 sat monitors applied to patient. 12:11:20 0.9% NaCl 100 ml/hr I.V. was administered by Any Damon RN; used for procedure; Verbal order read back and verified. 12:11:25 Oxygen 2 l/min etCO2 Nasal cannula was administered by Any Damon RN; used for procedure; Verbal order read back and verified. 12:11:30 Lidocaine 2% 20ml vial added to field was administered by Nader Burk MD; for local anesthetic; Verbal order read back and verified. 12:11:34 Heparin Flush Bag (1000units/500ml NS) 2 bags added to field was administered by Nader Burk MD; used for procedure; Verbal order read back and verified. 12:12:30 Radial Cocktail (Verapamil 2mg/Nitro 400mcg/Heparin 1500units) 1 syringe added to field was administered by Nader Burk MD; used for procedure; Verbal order read back and verified. 12:15:39 Vital chart was started 12:16:22 Baseline sample Acquired. 12:16:43 Rhythm: sinus rhythm , paced 12:16:44 Full Disclosure recording started 12:17:06 H&P Date Dictated: 01/17/2019 ER History on chart., New H&P dictated by physician.. 12:17:08 Pre-procedure instructions explained to patient. 12:17:08 Pre-op teaching completed and patient verbalized understanding. 12:17:10 Family in waiting room. 12:17:11 Patient NPO since Midnight. 12:17:14 Is the patient allergic to Iodine/contrast media? No. 12:17:16 Was the patient premedicated? No 12:17:17 Is patient on blood thinner?Yes 12:17:22 ACC The patient was administered the following blood thiners within the last 24 hours: ACCPlavix, Eliquis 12:17:25 Patient diabetic? No. 12:17:27 Previous problem with sedation/anesthesia? No ? 12:17:29 Snore? Yes 12:17:30 Sleep apnea? No 12:17:31 Deviated septum? No 12:17:32 Opens mouth fully? Yes 12:17:33 Sticks out tongue? Yes 12:17:38 Airway obstruction? No ? 12:17:41 Dentures? No ? 12:17:52 Pre procedure: right dorsailis pedis pulse 1+ Palpable, but thready & weak; easily obliterated 12:17:56 Pre procedure: left dorsailis pedis pulse 1+ Palpable, but thready & weak; easily obliterated 12:17:58 Patient pain scale 0/10 ?. 12:18:05 IV patent on arrival in left forearm with 0.9% NaCl at [facility]. 12:18:08 Lab results completed and on chart. 12:18:12 Risk of Mortality: 1.8 12:18:16 Risk of blood transfusion: 3.2 12:18:28 Risk of CELESTE: 10.1 12:18:58 Right Radial & Right Groin area was prepped with chlora-prep and draped in sterile fashion 12:18:59 Alarms reviewed by R. N. 12:18:59 Sharps counted by scrub and verified by R.N. 12:19:00 Physician arrived 12:19:01 --------ALL STOP TIME OUT------ 12:19:01 Final Timeout: patient, procedure, and site verified with staff and physician. All members of the team are in agreement. 12:19:09 Right Radial & Right Groin site verified by team. 12:19:13 Fire Safety Assessment: A--An alcohol-based skin anteseptic being used preoperatively., C--Open oxygen or nitrous oxide is being used., D--An ESU, laser, or fiber-optic light is being used. 12:19:17 Physical assessment completed. ASA score P 2 - A patient with mild systemic disease as per Nader Burk MD. 12:19:21 Sedation plan: IV Moderate Sedation Medication:Versed, Fentanyl 12:19:51 Use device set Radial Dx or PCI 12:19:52 ACIST Syringe (95024) opened to sterile field. 12:19:52 Medline Cath Pack ([id number]) opened to sterile field. 12:19:53 Bag Decanter () opened to sterile field. 12:19:53 ACIST Hand Control (08834) opened to sterile field. 12:19:53 ACIST Manifold (46906) opened to sterile field. 12:19:54 Tegaderm 4 x 4 (1626W) opened to sterile field. 12:19:54 MBrace Wrist Support ([id number]) opened to sterile field. 12:19:57 SHEATH 6FR RAIN (1483687) opened to sterile field. 12:19:58 EMERALD Guide Wire (190-890) opened to sterile field. 12:20:09 Versed 2 mg I.V. was administered by Any Damon RN; for sedation; Verbal order read back and verified. 12:20:17 Fentanyl 50 mcg I.V. was administered by Any Damon RN; for sedation; Verbal order read back and verified. 12:23:50 Local anesthetic to right femoral artery with Lidocaine 2% by Nader Burk MD.INITIAL ACCESS ONLY 12:24:04 A 6 Fr Short sheath was inserted into the Right Radial artery 12:25:02 A DIAGNOSTIC [place] 110cm 5 Fr catheter (836594) was advanced over the wire and used for Multi-vessel Angiography. 12:25:07 Zero performed for pressure channel P1 12::24 LV hemodynamics recorded. 12::25 LV gram done using RANGEL 12::28 Injector settings: Ml/sec: 5, Volume: 15, 12:26:33 EF : 40 % 12::53 LCA angiography performed. 12::56 Injector settings: Ml/sec: 3, Volume: 6, 12:28:06 Catheter removed. 12:28:12 GUIDE 6FR AR 2.0 catheter ([id number]) opened to sterile field. 12:28:14 INFLATOR Merit BasixCompak (YP8219) opened to sterile field. 12:28:26 6 Fr AR 2 guide catheter was inserted over the wire 12:29:07 CHOICE PT Extra Support 182cm wire ([id number]) opened to sterile field. 12:29:33 RCA angiography performed. 12:29:35 ACCDominant side:Right 12::35 Injector settings: Ml/sec: 3, Volume: 6, 12:29:54 Montgomery Verrata Plus pressure wire (29365H) opened to sterile field. 12:32:10 FFR/IFR wire advanced. 12:32:12 Baseline FFR 1. 12:32:13 Wire advanced across lesion. 12:33:07 mRCA lesion measured at 0.97 with IFR 12:33:19 Wire removed. 12:33:20 Guide catheter removed. 12:34:03 GUIDE 6FR XBLAD 3.5 catheter ([id number]) opened to sterile field. 12:34:17 6 Fr XBLAD 3.5 guide catheter was inserted over the wire 12:34:29 Heparin Bolus 4000 units I.V. was administered by Any Damon RN; for anticoagulation; verified with Dr. Burk Verbal order read back and verified. 12:34:52 CHOICE PT wire advanced. 12:34:54 Wire advanced across lesion. 12:37:46 Wire removed. 12:37:47 Guide catheter removed. 12:38:01 GUIDE 6FR XBLAD 4.0 catheter ([id number]) opened to sterile field. 12:38:17 6 Fr XBLAD 4 guide catheter was inserted over the wire 12:38:30 CHOICE PT wire advanced. 12:39:43 ACC Pre-intervention ARYA Flow is 3. 12:39:43 Wire advanced across lesion. 12:40:54 The BRISEYDA RX 2.25 x 12 stent ([id number]) was advanced then removed because of failure to cross lesion 12:42:29 Inflate balloon Inflation number: 1 A EUPHORA 2.5 x 15 Balloon ([id number]) was prepped and advanced across the Prox LAD 90, then inflated to 17 LUZ for 0:10 (min:sec) . 12:42:54 Inflation number: 2 The EUPHORA 2.5 x 15 Balloon ([id number]) was reinflated across the Prox LAD , to 19 LUZ for 0:10 (min:sec) . 12:43:05 Inflation number: 3 The EUPHORA 2.5 x 15 Balloon ([id number]) was reinflated across the Prox LAD , to 19 LUZ for 0:10 (min:sec) . 12:43:30 Inflation number: 1 The EUPHORA 2.5 x 15 Balloon ([id number]) was reinflated across the Mid LAD 90, to 3 LUZ for 0:10 (min:sec) . 12:43:35 Balloon removed over the wire. 12:46:01 The BRISEYDA RX 2.25 x 12 stent ([id number]) was advanced then removed because of failure to cross lesion 12:47:44 Inflate balloon Inflation number: 4 A EUPHORA 3.0 x 15 Balloon ([id number]) was prepped and advanced across the Prox LAD , then inflated to 13 LUZ for 0:10 (min:sec) . 12:48:29 Balloon removed over the wire. 12:49:13 Fentanyl 50 mcg I.V. was administered by Any Damon RN; for sedation; Verbal order read back and verified. 12:49:53 Pre PCI Site: [place] mLAD has 90% stenosis. 12:50:12 Place stent Inflation Number: 2 A BRISEYDA RX 2.25 x 12 stent ([id number]) was prepped and advanced across the Mid LAD 90. The stent was deployed at 13 LUZ for 0:10 (min:sec) . 12:50:56 Stent catheter was removed intact over wire. 12:51:30 Place stent Inflation Number: 5 A BRISEYDA RX 3.0 x 30 stent ([id number]) was prepped and advanced across the Prox LAD 90. The stent was deployed at 13 LUZ for 0:10 (min:sec) . 12:52:18 Stent catheter was removed intact over wire. 12:52:19 ACC Post-intervention ARYA Flow is 3. 12:52:19 Wire removed. 12:52:19 Guide catheter removed. 12:52:22 ZEPHYR REGULAR TR BAND (350834) opened to sterile field. 12:52:32 Post PCI Site: [place] mLAD has 0% stenosis. 12:52:32 Sheath removed intact; hemostasis achieved with Mechanical Compression to the Right Radial artery. 12:52:34 Procedure ended.(Physican Out) 12:53:10 Fluoroscopy time 13.80 minutes. 12:53:14 Flurop Dose total: 2154 12:53:14 Fluoroscopy dose: 2154 mGy 12:53:33 Dose Area Product 949852 mGy/cm. 12:53:40 Contrast amount:Isovue 300 181ml. 12:53:45 Maximum allowable dose exceeded? No. 12:54:38 ACT drawn and resulted at 383 seconds. (normal therapeutic range 180-240 seconds). 12:55:46 [place] band inflated with 10cc of air. 12:55:48 Insertion/operative site no bleeding no hematoma. 12:55:52 Post right radial artery:stable 12:55:53 Post Procedure Pulses reassessed and unchanged 12:55:56 Post procedure rhythm: unchanged. 12:55:58 Estimated blood loss: 5 ml 12:56:00 Post procedure instruction explained to patient.Patient verbalizes understanding. 12:56:01 Patient needs reinforcement of post procedure teaching. 12:56:16 Procedure type changed to Cath procedure, Diagnostic procedure, LHC, [facility] w/Coronaries, FFR/IVUS, FFR Initial, Sedation Charges, Moderate Sedation up to 30 minutes, PCI procedure, Coronary Stent, Coronary Stent Initial 12:56:40 Procedure and supply charges have been captured, reviewed, submitted and are correct. 12:56:45 Procedure Complication : No complications 12:56:47 Vital chart was stopped 12:56:52 [facility] Findings: MVD- PCI performed (see procedure note) 12:56:53 Operative report dictated upon procedure completion. 12:56:55 See physician's report for complete and final results. 12:56:57 Report given to Pre/Post Procedure Room. 12:56:59 Patient transfered to Pre/Post Procedure Room with Stretcher. 12:57:01 Procedure ended. 12:57:01 Full Disclosure recording stopped 12:57:09 ACC-PCI Only Patient was given prescriptions, or instructed by Nader Burk MD to start/continue the following medications upon discharge: Plavix 12:57:11 End room use (Document Last) Intervention Summary Intervention Notes Time ActionType Lesion and Equipment Used Action# Pressure Duration Attributes 12:40:54 Discard BRISEYDA RX 2.25 x Stent 12 stent ([id number]) 12:42:29 Inflate Prox LAD EUPHORA 2.5 x 1 17 00:10 balloon 15 Balloon ([id number]) 12:42:54 Reinflate Prox LAD EUPHORA 2.5 x 2 19 00:10 balloon 15 Balloon ([id number]) 12:43:05 Reinflate Prox LAD EUPHORA 2.5 x 3 19 00:10 balloon 15 Balloon ([id number]) 12:43:30 Reinflate Mid LAD EUPHORA 2.5 x 1 3 00:10 balloon 15 Balloon ([id number]) 12:46:01 Discard BRISEYDA RX 2.25 x Stent 12 stent ([id number]) 12:47:44 Inflate Prox LAD EUPHORA 3.0 x 4 13 00:10 balloon 15 Balloon ([id number]) 12:50:12 Place stent Mid LAD BRISEYDA RX 2.25 x 2 13 00:10 12 stent ([id number]) 12:51:30 Place stent Prox LAD BRISEYDA RX 3.0 x 5 13 00:10 30 stent ([id number]) Device Usage Item Name Manufacture Quantity Catalog Number Hospital Part Current Minimal Lot# / Charge Number Stock Stock Serial# Code ACIST Syringe Acist 1 32059 109266 721051 707652 20 (03612) Medical Systems Inc Medline Cath Medline 1 [id number] 161456 94814 015289 5 Pack ([id number]) Bag Decanter Microtek 1 2001S 452942 25452 948077 5 () Medical Inc. ACIST Hand Acist 1 44777 624751 353768 644975 5 Control Medical (02945) Systems Inc ACIST Manifold Acist 1 51646 025996 293492 690825 5 (51445) Medical Systems Inc Tegaderm 4 x 4 3M 1 1626W 593019 120309 526161 5 (1626W) MBrace Wrist Advanced 1 140-0250-00 792086 00178 164471 5 Support Vascular ([id number]) Dynamics SHEATH 6FR Cardinal 1 9787642 010701 3298762 606754 5 RAIN (3675861) iSale Global EMERALD Guide Cardinal 1 502-455 306611 302852 389069 5 Wire (502-455) Health DIAGNOSTIC Terumo 1 40-0030 248345 040592 632460 5 [place] 110cm 5 Fr catheter (472743) GUIDE 6FR AR Medtronic 1 [id number] 105223 68805 195573 1 2.0 catheter ([id number]) INFLATOR Merit Merit 1 OC8405 394934 194748 414512 15 ZeroPoint Clean Techhi[employer]ion Solutions Medical (GB3477) CHOICE PT [place] 1 [id number] 842455 532104 943117 5 Extra Support Scientific 182cm wire ([id number]) Montgomery Montgomery 1 62945S 800718 367065924 044865 5 Verrata Plus pressure wire (12572V) GUIDE 6FR Cardinal 1 33856806 484106 158724 786917 10 XBLAD 3.5 Health catheter (43344717) GUIDE 6FR Cardinal 1 31333734 517132 298765 146770 3 XBLAD 4.0 Health catheter (46131939) BRISEYDA RX 2.25 x Medtronic 1 [id number] 576058 6171590 429384 5 [id number] 12 stent ([id number]) EUPHORA 2.5 x Medtronic 1 [id number] 328522 962432 498847 5 [id number] 15 Balloon ([id number]) EUPHORA 3.0 x Medtronic 1 [id number] 194586 882139 418698 5 [id number] 15 Balloon ([id number]) BRISEYDA RX 3.0 x Medtronic 1 [id number] 045651 3068038 106756 5 [id number] 30 stent ([id number]) ZEPHYR REGULAR Cardinal 1 744703 146064 5144569 565973 5 [facility] (138738) Signature Audit [place] Stage Time Signature Unsigned Intra-Procedure 01/17/2019 Joseline Asher 1:05:05 PM RT(R) Intra-Procedure 01/17/2019 Any Damon 1:06:12 PM RN Intra-Procedure 01/17/2019 Nader Burk 1:07:03 PM Signatures Performing Physician : Signature : Nader Burk MD Date : Time : Monitor : Joseline Asher RT Signature : Date : Time : Nurse : Any Damon RN Signature : Date : Time : [facility] [address] [place] [address]
[2019-01-17] MEDS ORDERED: REQUIP0.25 MG PO (08:50)
[2019-01-17] MEDS ORDERED: PROTONIX40 MG PO (08:50)
[2019-01-17] MEDS ORDERED: NAMENDA5 MG PO (08:50)
[2019-01-17] MEDS ORDERED: HYDROCODON-ACE1 EAC7 PO (08:51)
[2019-01-17] MEDS ORDERED: VITAMIN B-122500 MCG PO (08:51)
[2019-01-17 09:09] LABS: BASOPHILS 0.2 % (0-2); EOSINOPHILS 0.9 % (0-7); HEMATOCRIT 47.1 % (42.0-54.0); HEMOGLOBIN 15.6 g/dL (13.5-17.5); IMMATURE GRANULOCYTES 0.2 % (0-5); LYMPHOCYTES 19.3 % (15-50); MCH 32.2 pg (26.0-34.0); MCHC 33.1 g/dL (31.0-37.0); MCV 97.1 fL (80.0-100.0); MEAN PLATELET VOLUME 10.8 fL (7.4-10.4); MONOCYTES 7.4 % (2-11); PLATELET COUNT 137 10x3/uL (130-400); RBC 4.85 10x6/uL (4.20-6.10); RDW 13.6 % (11.5-14.5); WBC 5.6 10x3/uL (4.8-10.8)
[2019-01-17 09:18] LABS: APTT 33.5 SECONDS (22.8-39.4); INR 1.17 (0.85-1.17); PROTIME 14.4 SECONDS (11.6-15.0)
[2019-01-17 09:27] LABS: ALBUMIN 3.9 g/dL (3.4-5.0); ALKALINE PHOSPHATASE 94 U/L (46-116); ALT (SGPT) 12 U/L (10-68); BILIRUBIN - TOTAL 0.65 mg/dL (0.2-1.3); CALC OSMOLALITY 280 mosm/kg (275-300); CARBON DIOXIDE 33.4 mmol/L (21.0-32.0); CHLORIDE - SERUM 103 mmol/L (98-107); CREATININE - SERUM 0.8 mg/dL (0.6-1.3); GLUCOSE 116 mg/dL (74-106); PROTEIN - SERUM 7.1 g/dL (6.4-8.2); SODIUM 141 mmol/L (136-145); UREA NITROGEN 10 mg/dL (7-18); eGFR NON AFRICAN AMERICAN > 90 mL/min (90-120)
[2019-01-17 09:38] LABS: CKMB 1.3 U/L (0.0-3.6); CREATINE KINASE 19 UL (21-232); MAGNESIUM - SERUM 2.1 mg/dL (1.8-2.4); TROPONIN-I < 0.017 ng/mL (0.000-0.060)
[2019-01-17] MEDS ORDERED: BAYER CHEWABLE81 MG PO (13:28)
[2019-01-17] MEDS ORDERED: LEXAPRO10 MG PO (13:29)
[2019-01-17] MEDS ORDERED: KLOR-CON 1010 MEQ PO (13:31)
--- NOTE | 2019-01-17 13:43 | NUR ---
1330 DR MENDOZA HAS ROUNDED ON PATIENT. PT IS SLEEPING INTERMITTENTLY, RESP WITH EASE ON O2 AT 2LPM VIA NC. PACED AT 90, DENIES ANY C/O CHEST PAIN. Z BAND IS CDI RIGHT WRIST, NO BLEEDING NOTED AT SITE. FINGERS WARM AND CAP REFILL IS BRISK. PT'S FAMILY AT BEDSIDE. DR MENDOZA HAS ROUNDED.
--- NOTE | 2019-01-17 13:51 | NUR ---
PT SLEEPING, RESP WITH EASE ON O2 AT 2LPM VIA NC, PACED RHYTHM AT 90, BP IS 102/72. Z BAND IS CDI, FINGERS WARM AND CAP REFILL IS BRISK. FAMILY AT BEDSIDE.
--- NOTE | 2019-01-17 14:18 | NUR ---
Z BAND IS CDI, FINGERS WARM AND CAP REFILL IS BRISK. PACED RHYTHM AT 90, SAT IS 97% ON O2 AT 2LPM VIA NC. BP IS 107/73. FAMILY AT BEDSIDE. PT DROWSY, DENIES ANY C/O. REPORT HAS BEEN CALLED TO [facility] PT TO BE TRANSFERRED TO ROOM 2119 VIA STRETCHER.
[2019-01-17 14:56] VITALS: BP 122/78; Ht 182.9 cm; Wt 82.7 kg
--- NOTE | 2019-01-17 15:02 | NUR ---
TRANSFER FROM CYTOPATHOLOGIST. VS WNL. RIGHT WRIST STABLE WITH TR BAND INTACT. WILL MONITOR.
--- NOTE | 2019-01-17 19:49 | NUR ---
ASSESSMENT COMPLETE, PT A&O. RESPERATIONS EVEN ON RA. IV TO LEFT AC WITH SL. SITE CLEAN AND DRY. INCISION NOTED TO RIGHT WRIST FROM CARDIAC CATH DONE EARLIER TODAY, NO SWELLING, BLEEDING, OR HEMATOMA NOTED. DIFLATED Z-BAND STILL IN PLACE TO REMIND PT TO RESTRICT MOVEMENT OF WIRST. PT DENIES PAIN OR NEEDS. ICE CREAM GIVEN AT PT REQUEST. FAMILY AT BED SIDE, BED LOW, CL IN REACH.
[2019-01-17 20:00] VITALS: BP 122/70
--- NOTE | 2019-01-17 20:47 | NUR ---
PT UP WITH ASSIST TO BR, IV TO LEFT AC OUT. TIP INTACT. COVERED WITH 2X2 AND TAPE.
[2019-01-18] VITALS: BP 104/66
--- NOTE | 2019-01-18 00:41 | NUR ---
RESTING WITH EYES CLOSED, RESPERATIONS EVEN, NO S/S DISTRESS NOTED.
[2019-01-18 04:00] VITALS: BP 115/73
[2019-01-18 08:30] VITALS: BP 131/78
[2019-01-18] MEDS ORDERED: PLAVIX75 MG PO (09:37)
--- NOTE | 2019-01-18 09:50 | NUR ---
UPON ADMIT PATIENT STATES TO RECEIVING A FLU SHOT. NO SHOT GIVEN UPON DISCHARGE.
--- NOTE | 2019-01-18 10:30 | NUR ---
IV AND TELEMETRY DCD. DC PLANS GIVEN. UNDERSTANDING VOICED. ESCORTED TO CAR BY W/C.
--- NOTE | 2019-01-19 13:28 | OP ---
PATIENT NAME: JAVIER PENNY MEDICAL RECORD: [id number] :34 LOCATION:D.CAT ADMISSION DATE: SURGEON: KAL MENDOZA MD DATE OF OPERATION: 01/17/2019 PROCEDURES: 1. PTCA stent LAD. 2. IFR. 3. Left heart catheterization. 4. Selective coronary angiography. 5. Left ventriculogram. INDICATION: Unstable angina. PROCEDURE IN DETAIL: After informed consent was obtained and after a detailed description of risks, benefits as well as alternative therapies, the patient elected to proceed with angiogram and angioplasty. The right radial area was prepped and draped in normal sterile fashion. Right radial artery was cannulated via modified Seldinger technique with placement of 6-Spanish sheath. All catheters exchanged through this sheath. FINDINGS: Left ventriculogram was performed in a standard 30-degree RANGEL view, reveals good cardiac wall motion, ejection fraction 55% to 60%. SELECTIVE CORONARY ANGIOGRAPHY: 1. Left main is with no significant angiographic disease. 2. Left anterior descending has 70% to 80% stenosis proximally followed by 95% stenosis in the mid vessel. 3. Left circumflex has moderate irregularities, but no flow-limiting stenosis. 4. Right coronary artery has moderate irregularities. There is a questionable stenosis in the mid vessel; however, IFR was normal at 0.98. PTCA STENT OF THE LAD: Stents used were 2.25 x 12 and 3.0 x 30 both Flip stents. Result was 0% residual stenosis. OVERALL IMPRESSION: Successful percutaneous transluminal coronary angioplasty stent of the left anterior descending going from 95% initial stenosis to 0% residual. TRANSINT:[id number] Voice Confirmation ID: [id number] DOCUMENT ID: [id number] KAL MENDOZA MD at 1328 CC: [id number] DICTATION DATE: 01/17/19 1258 ASTROCHEMIST: 01/17/19 1308 DEP CLI 01/18/19 [place] [id number]
--- NOTE | 2019-01-19 13:28 | HP ---
PATIENT: JAVIER PENNY MEDICAL RECORD: [id number] ACCOUNT: [id number] LOCATION:[facility] : 34 ADMISSION DATE: 01/17/19 PCP: SHELDON POTTER DO HISTORY AND PHYSICAL EXAMINATION DIAGNOSES: 1. Unstable angina. 2. Abnormal ECG. 3. Paroxysmal atrial fibrillation. 4. Sick sinus syndrome. 5. Status post pacemaker. 6. Hypertension. 7. GERD. HISTORY OF PRESENT ILLNESS: Mr. Penny has been followed by our group for dysrhythmia, sick sinus syndrome, and pacemaker. He has not had a history of ischemic heart disease, began having chest pain 2 days ago. The chest pain worsened dramatically. This morning, he had severe episode of chest pain. This morning, his EKG is partially paced over the non-paced beats show ST depression and T-wave inversions in the lateral leads. He has underlying atrial fibrillation. He is on Eliquis, last dose was yesterday morning. He as well on Norvasc for blood pressure control. His systolic blood pressures in the 120s here. He continues to have the chest discomfort. PHYSICAL EXAMINATION: CONSTITUTIONAL/GENERAL APPEARANCE: Well nourished, well developed, appears stated age. EYES: Lids and conjunctivae noninjected. No discharge. No pallor. ENT: Lips within normal limit. No cyanosis. No pallor. NECK: Carotid arteries, bilateral normal upstroke. No bruits. No thrills. No jugular venous pressure or distention. CERVICAL LYMPH NODES: Nontender. Nonenlarged. THYROID: Not enlarged. No nodules. CARDIOVASCULAR: Precordial exam, nondisplaced. No heaves or pericardial thrills. Rate and rhythm, regular. Heart sounds, normal S1, normal S2. No S3, no gallop, no rub. Systolic murmur, not heard. Diastolic murmur, not heard. RESPIRATORY: Respiratory effort, unlabored. Normal curvature. No thoracic deformity. No chest wall tenderness. Percussion, resonant. Auscultation, clear. No wheezes, no rales, no rhonchi. ABDOMEN: Soft, nondistended, nontender. No abdominal pain, no vomiting and normal appetite. MUSCULOSKELETAL: No joint tenderness, normal gait, normal tone. SKIN: Warm and dry. OVERALL IMPRESSION: Unstable angina with significantly abnormal ECG. We will beta block him to slow his heart rate further. Add a long-acting nitrate. If he continues to have symptomatology, we would proceed with coronary angiography. TRANSINT:[id number] Voice Confirmation ID: [id number] DOCUMENT ID: [id number] HISTORY AND PHYSICAL [id number] JAVIER PENNY JEFFREY MD at 1328 CC: [id number] DICTATION DATE: 01/17/19 0947 DIRECTOR VIDEO: 01/17/19 1226 DEP CLI 01/18/19 [id number] [place] [address]
--- NOTE | 2019-01-19 13:29 | DS ---
PATIENT:JAVIER PENNY :34 MEDICAL RECORD: [id number] DISCHARGE SUMMARY ADMISSION DATE: 01/17/19 DISCHARGE DATE: 01/18/19 DISCHARGE DIAGNOSES: 1. Unstable angina. 2. Coronary artery disease. 3. Percutaneous transluminal coronary angioplasty stent left anterior descending this admission. HOSPITAL COURSE: Mr. Penny presents with anginal symptomatology, found to have significant disease of the LAD, underwent successful PTCA stent of the LAD, had an uneventful postop course and was discharged home with the addition of Plavix to his Eliquis. He did not have the addition of a statin as he has been on multiple stents in the past and has been statin intolerant due to muscle aches. He will follow up with lipid clinic and we will try to get him on Repatha. TRANSINT:[id number] Voice Confirmation ID: [id number] DOCUMENT ID: [id number] KAL MENDOZA MD at 1329 CC: [id number] DICTATION DATE: 01/18/19 0843 BOOTH OPERATOR: 01/19/19 0044 DEP CLI 01/18/19 [facility] [address] [place] [address]
--- NOTE | 2019-01-19 13:29 | DS ---
PATIENT:JAVIER PENNY :34 MEDICAL RECORD: [id number] DISCHARGE SUMMARY ADMISSION DATE: 01/17/19 DISCHARGE DATE: 01/18/19 DISCHARGE DIAGNOSES: 1. Unstable angina. 2. Coronary artery disease. 3. Percutaneous transluminal coronary angioplasty stent of left anterior descending this admission. HOSPITAL COURSE: Mr. Penny presents with unstable anginal symptomatology, found to have significant disease of the LAD, underwent successful PTCA stent of the LAD, was discharged home with the addition of Plavix to his medical regimen. Follow up with [facility] in 1 month. TRANSINT:[id number] Voice Confirmation ID: [id number] DOCUMENT ID: [id number] KAL MENDOZA MD at 1329 CC: [id number] DICTATION DATE: 01/17/19 1255 AUTOMATIC FURNACE OPERATOR: 01/18/19 0651 DEP CLI 01/18/[address] [address]
== END 2019-01-18 10:46 ==
LOC: D.ER 08:43 → D.CATH 08:43 → EDSTATUS 13:18 → D.M2 14:25 → D.CATH 01-18 10:46
PROVIDERS: Family Medicine; ATTEND Internal Medicine Interventional Cardiology
DX: I25.110 Atherosclerotic heart disease of native coronary artery with unstable angina pectoris (principal); I10 Essential (primary) hypertension; K21.9 Gastro-esophageal reflux disease without esophagitis; R94.30 Abnormal result of cardiovascular function study, unspecified
CPT/HCPCS: C9600; 93571; 93458

== ENCOUNTER 2019-04-02 09:05 | Emergency (ER) | payer MEDICARE, BC ==
[~2019-04-02] VITALS: Ht 182.9 cm; Wt 84.5 kg
[~2019-04-02 09:05] MED LIST changes: +BAYER CHEWABLE81 MG PO; +KLOR-CON 1010 MEQ PO; +NAMENDA5 MG PO; +PLAVIX75 MG PO; +PROTONIX40 MG PO; +VITAMIN B-122500 MCG PO
[2019-04-02 09:10] VITALS: Ht 182.9 cm; Wt 84.5 kg
[2019-04-02] MEDS ORDERED: CLOTRIMAZOLE10 ML TOPICAL (09:13)
[2019-04-02] MEDS ORDERED: NITROQUICK0.4 MG SL (09:14)
[2019-04-02 11:00] LABS: BASOPHILS 0.1 % (0-2); EOSINOPHILS 1.5 % (0-7); HEMATOCRIT 47.4 % (42.0-54.0); HEMOGLOBIN 15.8 g/dL (13.5-17.5); IMMATURE GRANULOCYTES 0.3 % (0-5); LYMPHOCYTES 18.6 % (15-50); MCH 32.3 pg (26.0-34.0); MCHC 33.3 g/dL (31.0-37.0); MCV 96.9 fL (80.0-100.0); MEAN PLATELET VOLUME 10.8 fL (7.4-10.4); MONOCYTES 7.8 % (2-11); NEUTROPHILS 71.7 % (40-80); PLATELET COUNT 134 10x3/uL (130-400); RBC 4.89 10x6/uL (4.20-6.10); RDW 12.7 % (11.5-14.5); WBC 7.6 10x3/uL (4.8-10.8)
[2019-04-02 11:18] LABS: CALC OSMOLALITY 278 mosm/kg (275-300); CARBON DIOXIDE 30.3 mmol/L (21.0-32.0); CHLORIDE - SERUM 103 mmol/L (98-107); GLUCOSE 84 mg/dL (74-106); POTASSIUM - SERUM 3.7 mmol/L (3.5-5.1); SODIUM 140 mmol/L (136-145); UREA NITROGEN 15 mg/dL (7-18); eGFR NON AFRICAN AMERICAN 75 mL/min (90-120)
[2019-04-02 11:24] LABS: ALBUMIN 3.9 g/dL (3.4-5.0); ALKALINE PHOSPHATASE 84 U/L (46-116); ALT (SGPT) 13 U/L (10-68); BILIRUBIN - TOTAL 1.14 mg/dL (0.2-1.3); PROTEIN - SERUM 7.4 g/dL (6.4-8.2)
[2019-04-02] MEDS ORDERED: CLEOCIN HCL150 MG PO (11:45)
[2019-04-02] MEDS ORDERED: DIFLUCAN200 MG PO (11:45)
[2019-04-02 11:52] VITALS: BP 151/90
== END 2019-04-02 11:53 | disposition home or self-care (01) ==
LOC: D.ER 09:05
PROVIDERS: Emergency Medicine
DX: N49.2 Inflammatory disorders of scrotum (principal); B49 Unspecified mycosis; Z86.73 Personal history of transient ischemic attack (TIA), and cerebral infarction without residual deficits; I10 Essential (primary) hypertension; Z95.0 Presence of cardiac pacemaker; I25.10 Atherosclerotic heart disease of native coronary artery without angina pectoris

== ENCOUNTER 2019-04-05 18:33 | Inpatient (IN) | payer MEDICARE, BC ==
[~2019-04-05] VITALS: Ht 182.9 cm; Wt 83.5 kg
[~2019-04-05 18:33] MED LIST changes: +CLEOCIN HCL150 MG PO; +CLOTRIMAZOLE10 ML TOPICAL; +DIFLUCAN200 MG PO; +NITROQUICK0.4 MG SL
[2019-04-05 18:59] LABS: BASOPHILS 0.4 % (0-2); EOSINOPHILS 3.4 % (0-7); HEMATOCRIT 47.8 % (42.0-54.0); HEMOGLOBIN 15.7 g/dL (13.5-17.5); IMMATURE GRANULOCYTES 0.2 % (0-5); LYMPHOCYTES 24.3 % (15-50); MCHC 32.8 g/dL (31.0-37.0); MCV 97.4 fL (80.0-100.0); MEAN PLATELET VOLUME 11.1 fL (7.4-10.4); NEUTROPHILS 63.7 % (40-80); PLATELET COUNT 134 10x3/uL (130-400); RBC 4.91 10x6/uL (4.20-6.10); RDW 12.8 % (11.5-14.5); WBC 4.7 10x3/uL (4.8-10.8)
[2019-04-05 19:09] LABS: CALC OSMOLALITY 281 mosm/kg (275-300); CALCIUM 8.8 mg/dL (8.5-10.1); CARBON DIOXIDE 31.3 mmol/L (21.0-32.0); CHLORIDE - SERUM 102 mmol/L (98-107); POTASSIUM - SERUM 3.7 mmol/L (3.5-5.1); SODIUM 139 mmol/L (136-145); UREA NITROGEN 14 mg/dL (7-18); eGFR NON AFRICAN AMERICAN 75 mL/min (90-120)
[2019-04-05 19:15] LABS: GLUCOSE 148 mg/dL (74-106)
[2019-04-05 20:26] VITALS: BP 145/82
--- NOTE | 2019-04-05 20:26 | NUR ---
IN AND OUT PARRA CATH, STERILE FIELD MAINTAINED. 200ML OUTPUT OF CLEAR YELLOW URINE AT INSERTION. SAMPLE SENT TO LAB. PT TOLERATED WELL.
[2019-04-05 20:31] LABS: APPEARANCE CLEAR (CLEAR); BILIRUBIN NEGATIVE (NEGATIVE); COLOR STRAW (YELLOW); GLUCOSE 50 mg/dL (NEGATIVE); KETONE NEGATIVE (NEGATIVE); NITRITE NEGATIVE (NEGATIVE); PROTEIN NEGATIVE (NEGATIVE); UROBILINOGEN NORMAL (NORMAL)
[2019-04-05] MEDS ORDERED: PRED FORTE5 ML RIGHT EYE (22:49)
[2019-04-05] MEDS ORDERED: ALPHAGAN P15 ML RIGHT EYE (22:51)
[2019-04-05] MEDS ORDERED: AZOPT 1% OPHT D10 ML RIGHT EYE (22:52)
[2019-04-05 23:17] VITALS: BP 128/81; BMI 25.0
--- NOTE | 2019-04-06 02:55 | NUR ---
patient arived on floor at 2240 with er staff and family. he is alert with some confusion noted at times. Redness and dranage noted to scrotum. call light and water in reach. awatting call to lemon picker telemetry. resting no s/s of distress.
[2019-04-06 04:44] LABS: BASOPHILS 0.4 % (0-2); EOSINOPHILS 3.5 % (0-7); HEMOGLOBIN 15.1 g/dL (13.5-17.5); IMMATURE GRANULOCYTES 0.2 % (0-5); LYMPHOCYTES 28.8 % (15-50); MCH 32.1 pg (26.0-34.0); MCHC 33.6 g/dL (31.0-37.0); MCV 95.7 fL (80.0-100.0); MEAN PLATELET VOLUME 11.3 fL (7.4-10.4); MONOCYTES 9.5 % (2-11); NEUTROPHILS 57.6 % (40-80); PLATELET COUNT 134 10x3/uL (130-400); RDW 12.7 % (11.5-14.5); WBC 5.7 10x3/uL (4.8-10.8)
[2019-04-06 04:49] LABS: APTT 31.1 SECONDS (22.8-39.4); INR 1.09 (0.85-1.17); PROTIME 13.6 SECONDS (11.6-15.0)
[2019-04-06 05:05] LABS: CALC OSMOLALITY 282 mosm/kg (275-300); CALCIUM 8.8 mg/dL (8.5-10.1); CARBON DIOXIDE 32.1 mmol/L (21.0-32.0); CHLORIDE - SERUM 105 mmol/L (98-107); MAGNESIUM - SERUM 1.9 mg/dL (1.8-2.4); POTASSIUM - SERUM 3.6 mmol/L (3.5-5.1); PRO BNP 734 pg/mL (0-450); SODIUM 142 mmol/L (136-145); UREA NITROGEN 14 mg/dL (7-18); eGFR NON AFRICAN AMERICAN 75 mL/min (90-120)
[2019-04-06 05:15] LABS: GLUCOSE 88 mg/dL (74-106)
[2019-04-06 08:00] VITALS: Ht 182.9 cm; Wt 83.5 kg
--- NOTE | 2019-04-06 08:39 | NUR ---
RESTING IN BED, NO DISTRESS NOTED, C/O SCOTAL TENDERNESS, AREA RED, CONT TO MONITOR, IV IN PLACE
[2019-04-06 08:49] VITALS: BP 131/82
[2019-04-06 12:49] VITALS: BP 133/76
[2019-04-06 17:50] VITALS: BP 133/77
--- NOTE | 2019-04-06 18:22 | NUR ---
RESTING IN BED, IV FLUIDS DC, CONT TO MONITOR FOR PAIN IN SCROTUM
[2019-04-06 20:00] VITALS: BP 139/82
--- NOTE | 2019-04-07 03:07 | NUR ---
I have reviewed this patient and I concur with the Shift Assessment completed by the Licensed Practical Nurse today this shift.
[2019-04-07 04:00] VITALS: BP 123/87
[2019-04-07 05:06] LABS: BASOPHILS 0.2 % (0-2); EOSINOPHILS 2.5 % (0-7); HEMATOCRIT 46.7 % (42.0-54.0); HEMOGLOBIN 15.3 g/dL (13.5-17.5); IMMATURE GRANULOCYTES 0.2 % (0-5); LYMPHOCYTES 23.3 % (15-50); MCH 31.5 pg (26.0-34.0); MCHC 32.8 g/dL (31.0-37.0); MCV 96.3 fL (80.0-100.0); MEAN PLATELET VOLUME 10.8 fL (7.4-10.4); MONOCYTES 11.8 % (2-11); PLATELET COUNT 135 10x3/uL (130-400); RBC 4.85 10x6/uL (4.20-6.10); RDW 12.9 % (11.5-14.5); WBC 5.5 10x3/uL (4.8-10.8)
[2019-04-07 05:26] LABS: CALC OSMOLALITY 281 mosm/kg (275-300); CARBON DIOXIDE 28.9 mmol/L (21.0-32.0); CHLORIDE - SERUM 104 mmol/L (98-107); CREATININE - SERUM 0.9 mg/dL (0.6-1.3); GLUCOSE 102 mg/dL (74-106); PHOSPHOROUS 2.9 mg/dL (2.5-4.9); POTASSIUM - SERUM 3.6 mmol/L (3.5-5.1); SODIUM 142 mmol/L (136-145); UREA NITROGEN 11 mg/dL (7-18); eGFR NON AFRICAN AMERICAN 85 mL/min (90-120)
[2019-04-07 10:12] VITALS: BP 150/87
--- NOTE | 2019-04-07 10:48 | NUR ---
REHAB PRESCREENING Rehab referral received and chart reviewed. Mr. Georges is a good candidate for acute inpatient rehab. Rehab will begin his screen and notify case management when approvals are in place. He will then be ready for admission if he is willing to come and his physicians feel he is appropriate for discharge. Thank you for this referral! Lorena Prasad, CLAM DREDGER Rehab PD
--- NOTE | 2019-04-07 10:58 | NUR ---
RESTING IN BED, C/O NOT FEELING WELL THIS AM, MEDICATED FOR NAUSEA, FOLLOWED UP WITH PO MEDS AND SOME BREKFAST LATER, TX DONE TO SCROTUM, CONT TO C/O TENDERNESS
[2019-04-07 13:40] VITALS: BP 136/79
--- NOTE | 2019-04-07 14:15 | MORECARE ---
CASE MANAGEMENT DISCHARGE SUMMARY PATIENT: JAVIER PENNY UNIT: [id number] ADM DATE: 04/05/19 AGE: 88 : 32 SEX: M ROOM/BED: D.2203 AUTHOR: GONZÁLEZ OLVERA PHYSICIAN: REFERRING PHYSICIAN: DILLAN CHOI MD DATE OF SERVICE: 04/07/19 Discharge Plan Patient Name: JAVIER PENNY [facility] [facility] 1930 Planned Disposition: Inpatient Rehab Facility Anticipated Discharge Date: 04/07/19 Discharge Date: Expected LOS: 2 Initial Reviewer: [email or web address] Initial Review Date: 04/05/2019 Generated: 04/07/19 3:15 pm Patient Name: JAVIER PENNY Page [phone] at 1415 All edits/amendments must be made on the electronic document DICTATION DATE: 04/07/19 1415 DISPATCH SPECIALIST: RICHIE 04/07/19 1415 RPT#: [id number] DC DATE: STATUS: ADM IN [facility] [address] [place] [address] END OF REPORT
--- NOTE | 2019-04-07 14:25 | NUR ---
1300 IV REMOVED, TIP INTACT, HORTENSIA VILLATORO, D/C PAPERS SIGNED, RX ESCRIBED TO [place], TAKEN TO PRIVATE VEHICLE
--- NOTE | 2019-04-07 14:36 | MORECARE ---
CASE MANAGEMENT DISCHARGE SUMMARY PATIENT: JAVIER PENNY UNIT: [id number] ADM DATE: 04/05/19 AGE: 88 : 32 SEX: M ROOM/BED: D.2203 AUTHOR: GONZÁLEZ OLVERA PHYSICIAN: REFERRING PHYSICIAN: DILLAN CHOI MD DATE OF SERVICE: 04/07/19 Discharge Plan Patient Name: JAVIER PENNY Facility: [facility]:[place] : 1930 Planned Disposition: Inpatient Rehab Facility Anticipated Discharge Date: 04/07/19 Discharge Date: 04/07/2019 Expected LOS: 2 Initial Reviewer: [email or web address] Initial Review Date: 04/05/2019 Generated: 04/07/19 3:35 pm Comments DCP- Discharge Planning Updated by [email or web address]: Noemi Kitchen on 04/07/19 1:[address] DC PLAN: Accepted to inpatient rehab at [facility]. Referral sent to [facility] Rehab on 04/06/2019 by . Received call from Lorena with rehab stating they can accept patient today. Cm spoke to Jennifer who stated patient can dc today to rehab. DC order noted after call. Cm met with patient and he stated Jennifer discussed rehab with him and he is agreeable and his choice is [facility] Inpatient rehab. TANYA presented and signed by the patient to Inpatient rehab at [facility]. Patient currently lives home alone and stated he is weak and needs rehab. He denied further dc needs at this time. CM will continue to follow and will assist as needed with dc plans/needs. Noemi Kitchen RN, [facility] DCPIA - Discharge Planning Initial Assessment Updated by [email or web address]: Noemi Kitchen on 04/07/19 2:32 pm * Is the patient Alert and Oriented? Yes * How many steps to enter\exit or inside your home? None * PCP Dr. Ward * Preadmission Environment Home Alone * ADLs Independent * Additional services required to return to the preadmission environment? Yes * Can the patient safely return to the preadmission environment? No * Has this patient been hospitalized within the prior 30 days at any hospital? No Last DP export: 04/07/19 1:15 pm Patient Name: JAVIER PENNY Page [phone] at 1436 All edits/amendments must be made on the electronic document DICTATION DATE: 04/07/191434 EXTENSION COURSE COUNSELOR: RICHIE 04/07/191434 RPT#: [id number] DC DATE:04/07/19 STATUS: DIS IN [facility] [address] [place] [address] END OF REPORT
[2019-04-07] MEDS ORDERED: NYSTATIN1 PWD TOPICAL (14:49)
--- NOTE | 2019-04-07 15:28 | NUR ---
PT STATES DR SHELDON POTTER IS HIS PCP.
--- NOTE | 2019-04-07 17:14 | NUR ---
1650 IV REMOVED, TIP INTACT, TELE REMOVED AT REHAB REQUEST, COPY OF CHART SENT WITH PT TO REHAB
--- NOTE | 2019-04-08 10:43 | MORECARE ---
CASE MANAGEMENT DISCHARGE SUMMARY PATIENT: JAVIER PENNY UNIT: [id number] ADM DATE: 04/05/19 AGE: 88 : 32 SEX: M ROOM/BED: D.2203 AUTHOR: GONZÁLEZ OLVERA PHYSICIAN: REFERRING PHYSICIAN: DILLAN CHOI MD DATE OF SERVICE: 04/08/19 Discharge Plan Patient Name: JAVIER PENNY [facility] [facility] 1930 Planned Disposition: Inpatient Rehab Facility Anticipated Discharge Date: 04/07/19 Discharge Date: 04/07/2019 Expected LOS: 2 Initial Reviewer: [email or web address] Initial Review Date: 04/05/2019 Generated: 04/08/19 11:42 am Comments DCP- Discharge Planning Updated by [email or web address]: Noemi Kitchen on 04/07/19 1:[address] DC PLAN: Accepted to inpatient rehab at [facility]. Referral sent to [facility] Rehab on 04/06/2019 by . Received call from Lorena with rehab stating they can accept patient today. Cm spoke to Jennifer who stated patient can dc today to rehab. DC order noted after call. Cm met with patient and he stated Jennifer discussed rehab with him and he is agreeable and his choice is [facility] Inpatient rehab. TANYA presented and signed by the patient to Inpatient rehab at [facility]. Patient currently lives home alone and stated he is weak and needs rehab. He denied further dc needs at this time. CM will continue to follow and will assist as needed with dc plans/needs. Noemi Kitchen RN, [facility] DCPIA - Discharge Planning Initial Assessment Updated by [email or web address]: Noemi Kitchen on 04/07/19 2:32 pm * Is the patient Alert and Oriented? Yes * How many steps to enter\exit or inside your home? None * PCP Dr. Ward * Preadmission Environment Home Alone * ADLs Independent * Additional services required to return to the preadmission environment? Yes * Can the patient safely return to the preadmission environment? No * Has this patient been hospitalized within the prior 30 days at any hospital? No Coverage Notice Reviewer: [email or web address] - Noemi Kitchen Notice Issued Date-Time: 04/07/2019 14:15 Notice Type: IM Discharge Notice Notice Delivered To: Patient Relationship to Patient: Supervisor [employer] Name: Delivery Method: HAND - Hand Delivered Olivia Days: Prior Verbal Notification: Recipient Understood Notice: Yes Recipient Signature: Yes Med Rec Note Co-signed by Attending: Coverage Notice Comment: DC IMM delivered, explained, signed by the patient, and placed in his chart. Signed form also left with patient. Noemi Kitchen RN , [facility] Last DP export: 04/07/19 1:36 pm Patient Name: JAVIER PENNY Page [phone] at 1043 All edits/amendments must be made on the electronic document DICTATION DATE: 04/08/19 104 METER INSTALLER AND REMOVER: RICHIE 04/08/19 1042 RPT#: [id number] DC DATE:04/07/19 STATUS: DIS IN [facility] [address] [place] [address] END OF REPORT
== END 2019-04-07 16:50 | DRG 728 ==
LOC: D.ER 18:33 → D.MS 20:50
PROVIDERS: Emergency Medicine; Family Medicine; ADMIT Family Medicine; ATTEND Family Medicine
DX: N49.2 Inflammatory disorders of scrotum (principal); I50.42 Chronic combined systolic (congestive) and diastolic (congestive) heart failure; I11.0 Hypertensive heart disease with heart failure; Z86.711 Personal history of pulmonary embolism; Z79.01 Long term (current) use of anticoagulants; I25.10 Atherosclerotic heart disease of native coronary artery without angina pectoris; Z95.0 Presence of cardiac pacemaker; Z86.73 Personal history of transient ischemic attack (TIA), and cerebral infarction without residual deficits; F03.90 Unspecified dementia, unspecified severity, without behavioral disturbance, psychotic disturbance, mood disturbance, and anxiety; M54.9 Dorsalgia, unspecified; C61 Malignant neoplasm of prostate; Z85.038 Personal history of other malignant neoplasm of large intestine

== ENCOUNTER 2019-04-07 17:19 | Inpatient (IN) | payer MEDICARE, BC ==
[~2019-04-07] VITALS: Ht 182.9 cm; Wt 83.5 kg
[~2019-04-07 17:19] MED LIST changes: +ALPHAGAN P15 ML RIGHT EYE; +AZOPT 1% OPHT D10 ML RIGHT EYE; +NYSTATIN1 PWD TOPICAL; +PRED FORTE5 ML RIGHT EYE
[2019-04-07 17:47] VITALS: BP 137/81; BMI 25.0
--- NOTE | 2019-04-07 20:00 | NUR ---
PATIENT RECIEVED SITTING UP IN BED WATCHING TV. ASSESSMENT & VITAL SIGNS TAKEN. C/O PAIN IN SCROTUM AREA. PATIENT INFORMED RADIOLOGY DIRECTOR HAD BEEN CALLED & WILL COME DOWN & GET MEDICATIONS OUT OF PYXIS. PATIENT ALARM ON. BED LOW. CALL LIGHT WITHIN REACH. WILL CONTINUE TO MONITOR.
[2019-04-07 20:22] VITALS: BP 147/76
--- NOTE | 2019-04-07 21:30 | NUR ---
PATIENT USED CALL LIGHT FOR ASSIST. PATIENT STOOD & SAT DOWN IN WHEELCHAIR. UNSTEADY WHILE TRANSFERRING. PATIENT SAT ON COMMODE & HAD VOID & BM. PATIENT RETURNED TO BED TURNING IN BED WITH PILLOW CASE OVER SCROTUM AREA. BED LOW. ALARM ON. CALL LIGHT WITHIN REACH. URINAL AT BEDSIDE. WILL CONTINUE TO MONITOR.
--- NOTE | 2019-04-07 23:08 | NUR ---
PATIENT MEDICATIONS GIVEN LATE DUE TO PHARMACY BEING CLOSED. DINING CAR CONDUCTOR HAD TO GET MEDICATIONS OUT OF PYXIS.
--- NOTE | 2019-04-07 23:24 | NUR ---
I have reviewed this patient and I concur with the Shift Assessment completed by the Licensed Practical Nurse today this shift.
--- NOTE | 2019-04-08 01:58 | NUR ---
PATIENT EYES CLOSED. RESPIRATIONS 18 & EVEN. BED LOW. ALARM ON. CALL LIGHT & URINAL WITHIN REACH. WILL CONTINUE TO MONITOR.
[2019-04-08 08:00] VITALS: BP 128/80
--- NOTE | 2019-04-08 19:34 | NUR ---
PT RESTING IN BED WITH EYES OPEN. NO NEEDS VOICED.
[2019-04-08 19:50] VITALS: BP 139/75
--- NOTE | 2019-04-08 22:10 | NUR ---
PT RESTING IN BED WITH EYES CLOSED. NO ACUTE DISTRESS NOTED.
--- NOTE | 2019-04-09 02:45 | NUR ---
I have reviewed this patient and I concur with the Shift Assessment completed by the Licensed Practical Nurse today this shift.
[2019-04-09 06:27] LABS: BASOPHILS 0.3 % (0-2); EOSINOPHILS 2.1 % (0-7); HEMATOCRIT 45.7 % (42.0-54.0); HEMOGLOBIN 15.2 g/dL (13.5-17.5); IMMATURE GRANULOCYTES 0.2 % (0-5); LYMPHOCYTES 24.7 % (15-50); MCH 31.9 pg (26.0-34.0); MCHC 33.3 g/dL (31.0-37.0); MEAN PLATELET VOLUME 11.2 fL (7.4-10.4); MONOCYTES 9.5 % (2-11); NEUTROPHILS 63.2 % (40-80); PLATELET COUNT 141 10x3/uL (130-400); RBC 4.76 10x6/uL (4.20-6.10); RDW 12.9 % (11.5-14.5); WBC 5.8 10x3/uL (4.8-10.8)
[2019-04-09 06:57] LABS: CALC OSMOLALITY 280 mosm/kg (275-300); CALCIUM 8.7 mg/dL (8.5-10.1); CARBON DIOXIDE 29.2 mmol/L (21.0-32.0); CHLORIDE - SERUM 105 mmol/L (98-107); CREATININE - SERUM 0.8 mg/dL (0.6-1.3); GLUCOSE 92 mg/dL (74-106); POTASSIUM - SERUM 3.6 mmol/L (3.5-5.1); SODIUM 141 mmol/L (136-145); UREA NITROGEN 13 mg/dL (7-18); eGFR NON AFRICAN AMERICAN > 90 mL/min (90-120)
[2019-04-09 07:59] VITALS: BP 131/86
--- NOTE | 2019-04-09 08:07 | NUR ---
PATIENT SITTING UP IN BED TALKING ON PHONE WHEN BREAKFAST TRAY BROUGHT INTO ROOM. ALERT/ORIENT. CALL LIGHT WITHIN REACH. VOICES NO NEEDS. WILL CONTINUE WITH PLAN OF CARE
--- NOTE | 2019-04-09 11:00 | NUR ---
OCCUPATIONAL THERAPIST WORKING WITH PATIENT. HELPING PATIENT IN SHOWER.
[2019-04-09 12:30] VITALS: Ht 182.9 cm; Wt 83.5 kg
--- NOTE | 2019-04-09 16:29 | NUR ---
PATIENT ADMITTED TO REHAB FROM ACUTE FLOOR. HIS PCP IS DR. POTTER HE HAS NO DME OR HOME HEALTH AT THIS TIME. PATIENT STATES THAT HE LIVES ALONE. DISCHARGE PLANS ARE FOR PATIENT TO RETURN TO HIS HOME. WILL CONTIN UE TO FOLLOW WITH PATIENT.
--- NOTE | 2019-04-09 17:51 | NUR ---
PATIENT SITTING UP AT THE SIDE OF THE BED IN WHEELCHAIR TO EAT SUPPER. CALL LIGHT WITHIN REACH
--- NOTE | 2019-04-09 19:25 | NUR ---
REC'D. IN BED DURING CHGE OF SHIFT WALKING ROUNDS WATCHING TV DENIES ANY DISCOMFORT AT PRESENT TIME.WILL CONTINUE TO MONITOR FOR ANY CHGES AND FOLLOW CURRENT PLAN OF CARE
[2019-04-09 20:30] VITALS: BP 134/84
--- NOTE | 2019-04-10 03:51 | NUR ---
I have reviewed this patient and I concur with the Shift Assessment completed by the Licensed Practical Nurse today this shift.
[2019-04-10 08:00] VITALS: BP 120/76
--- NOTE | 2019-04-10 10:20 | NUR ---
PT AM MEDS ADMINISTERED. PT DENIES NEEDS. WCTM.
[2019-04-10 20:03] VITALS: BP 121/79
--- NOTE | 2019-04-10 20:10 | NUR ---
AWAKE AND ALERT. RESTING IN BED WITH NO DISTRESS NOTED. RESPIRATIONS UNALBORED. NO NEEDS VOICED.
--- NOTE | 2019-04-11 00:19 | NUR ---
RESTING IN BED WITH RESPIRATIONS UNLABORED. NO DISTRESS NOTED.
--- NOTE | 2019-04-11 02:31 | NUR ---
CONTINUES RESTING IN BED WITH RESPIRATIONS UNLABORED. NO DISTRESS NOTED. CALL LIGHT IN REACH.
--- NOTE | 2019-04-11 05:10 | NUR ---
QUIET HOURS. NO ACUTE CHANGES IN CONDITIONT THIS SHIFT. NO DISTRESS NOTED. CALL LIGHT IN REACH.
[2019-04-11 08:00] VITALS: BP 146/89
[2019-04-11 08:01] LABS: BASOPHILS 0.2 % (0-2); EOSINOPHILS 1.6 % (0-7); HEMATOCRIT 44.8 % (42.0-54.0); HEMOGLOBIN 14.7 g/dL (13.5-17.5); IMMATURE GRANULOCYTES 0.2 % (0-5); LYMPHOCYTES 27.8 % (15-50); MCH 31.6 pg (26.0-34.0); MCHC 32.8 g/dL (31.0-37.0); MCV 96.3 fL (80.0-100.0); MEAN PLATELET VOLUME 11.5 fL (7.4-10.4); MONOCYTES 11.4 % (2-11); NEUTROPHILS 58.8 % (40-80); PLATELET COUNT 138 10x3/uL (130-400); RBC 4.65 10x6/uL (4.20-6.10); RDW 12.8 % (11.5-14.5); WBC 5.6 10x3/uL (4.8-10.8)
[2019-04-11 08:14] LABS: CALC OSMOLALITY 277 mosm/kg (275-300); CALCIUM 8.9 mg/dL (8.5-10.1); CARBON DIOXIDE 24.5 mmol/L (21.0-32.0); CHLORIDE - SERUM 104 mmol/L (98-107); CREATININE - SERUM 0.8 mg/dL (0.6-1.3); GLUCOSE 81 mg/dL (74-106); POTASSIUM - SERUM 3.4 mmol/L (3.5-5.1); SODIUM 139 mmol/L (136-145); UREA NITROGEN 14 mg/dL (7-18); eGFR NON AFRICAN AMERICAN > 90 mL/min (90-120)
--- NOTE | 2019-04-11 12:00 | NUR ---
PT RESTING IN BED WITH EYES OPEN CALL LIGHT IN REACH WILL MONITER
--- NOTE | 2019-04-11 16:45 | NUR ---
CARE TEAM MEETING: PATIENT WINSTON ATTENDED MEETING. THEIR QUESTIONS AND CONCERNS WERE ADDRESSED. WILL CONTINUE TO FOLLOW WITH PATIENT. DR. ELMORE WILL BE CONSULTED . TENATIVE DISCHARGE DATE IS 04/19/2019. WILL CONTINUE TO FOLLOW WITH PATIENT.
--- NOTE | 2019-04-11 18:45 | NUR ---
PT RESTING IN BED WITH EYES OPEN CALL LIGHT IN REACH WILL MONITER
--- NOTE | 2019-04-11 19:40 | NUR ---
GREETED PATIENT AND INTRODUCED MYSELF HIS NURSE. PT. IS CURRENTLY SITTING IN WHEELCHAIR. AOX4. PT. SEEMS TO BE CONCERNED ABOUT HIS RECENT DEVELOPMENT IN HIS SCROTUM AREA, BUT UNDERSTANDS THAT THE DOCTORS ARE AWARE OF THE SITUATION AND ARE WORKING ON A SOLUTION. RESPIRATIONS EVEN. NO S/S OF DISTRESS. DENIES ANY NEEDS AT THIS TIME. CALL LIGHT IN REACH.
[2019-04-11 19:43] VITALS: BP 132/87
--- NOTE | 2019-04-12 00:40 | NUR ---
PT. RESTING QUIETLY WITH EYES CLOSED. RESPIRATIONS EVEN. NO S/S OF DISTRESS. SR UP X 2. BED IN LOWEST POSITION. CALL LIGHT IN REACH.
--- NOTE | 2019-04-12 03:39 | NUR ---
PT. RESTING QUIETLY WITH EYES CLOSED. RESPIRATIONS EVEN. NO S/S OF DISTRESS. CALL LIGHT IN REACH.
[2019-04-12 08:00] VITALS: BP 112/61
--- NOTE | 2019-04-12 09:49 | NUR ---
NUTRITION F/U PT TOLERATING DIABETIC DIET WITH 100% INTAKE MEALS. NO HX OF DM, ON NO DIABETIC MEDS. SPOKE WITH NURSING, WILL CHANGE DIET TO REG. RD FOLLOWING
--- NOTE | 2019-04-12 10:45 | NUR ---
PT PARTICIPATING IN THERAPY, DENIES NEEDS. WCTM.
--- NOTE | 2019-04-12 19:47 | NUR ---
AWAKE AND ALERT. UP AD JASPER IN ROOM. RESPIRATIONS UNLABORED. STATES DOOR GLASS INSTALLER SAW HIM TODAY AND ORDERED A NEW CREAM. NO ACUTE DISTRESS NOTED.
[2019-04-12 19:52] VITALS: BP 147/67
--- NOTE | 2019-04-13 00:23 | NUR ---
RESTING QUIETLY WITH RESPIRATIONS UNALBORED. NO DISTRESS NOTED.
--- NOTE | 2019-04-13 02:29 | NUR ---
SLEEPING WITH RESPIRATIONS UNLABORED. NO DISTRESS NOTED. CALL LIGHT IN REACH.
--- NOTE | 2019-04-13 05:13 | NUR ---
QUIET HOURS. NO ACUTE CHANGES IN CONDITION THIS SHIFT. RESTING IN BED WITH NO DISTRESS NOTED.
--- NOTE | 2019-04-13 08:00 | NUR ---
PATIENT IS ALERT. VERY HARD OF HEARING. BED ALARM ON. CALL LIGHT WITHIN REACH. VOICES NO NEEDS. WILL CONTINUE WITH PLAN OF CARE
[2019-04-13 08:07] VITALS: BP 135/87
[2019-04-13 08:12] LABS: BASOPHILS 0.2 % (0-2); EOSINOPHILS 1.6 % (0-7); HEMATOCRIT 44.3 % (42.0-54.0); HEMOGLOBIN 14.8 g/dL (13.5-17.5); IMMATURE GRANULOCYTES 0.2 % (0-5); LYMPHOCYTES 28.9 % (15-50); MCH 31.8 pg (26.0-34.0); MCHC 33.4 g/dL (31.0-37.0); MCV 95.1 fL (80.0-100.0); MONOCYTES 10.6 % (2-11); NEUTROPHILS 58.5 % (40-80); PLATELET COUNT 141 10x3/uL (130-400); RBC 4.66 10x6/uL (4.20-6.10); RDW 12.7 % (11.5-14.5); WBC 5.8 10x3/uL (4.8-10.8)
[2019-04-13 08:21] LABS: CALC OSMOLALITY 282 mosm/kg (275-300); CARBON DIOXIDE 29.4 mmol/L (21.0-32.0); CHLORIDE - SERUM 105 mmol/L (98-107); CREATININE - SERUM 0.9 mg/dL (0.6-1.3); GLUCOSE 108 mg/dL (74-106); POTASSIUM - SERUM 3.9 mmol/L (3.5-5.1); SODIUM 141 mmol/L (136-145); UREA NITROGEN 15 mg/dL (7-18); eGFR NON AFRICAN AMERICAN 85 mL/min (90-120)
--- NOTE | 2019-04-13 10:10 | NUR ---
PATIENT IN REHAB ROOM. WORKING WITH PHYSICAL THERAPIST. DENIES ANY PAIN/DISC AT THIS TIME.
--- NOTE | 2019-04-13 12:38 | NUR ---
PATIENTS FAMILY IN ROOM, VISITING WHILE PATIENT EATS LUNCH
--- NOTE | 2019-04-13 15:51 | NUR ---
PATIENT HELP TO BATHROOM. MIN TO MOD ASST FROM BED TO WHEELCHAIR AND WHEELCHAIR ONTO TOILET
--- NOTE | 2019-04-13 19:18 | NUR ---
AWAKE AND ALERT. SITTING IN WHEELCHAIR IN ROOM. RESPIRATIONS UNLABORED. NO ACUTE DISTRESS NOTED. CALL LIGHT IN REACH.
[2019-04-13 20:34] VITALS: BP 129/70
--- NOTE | 2019-04-14 00:30 | NUR ---
RESTING IN BED WITH RESPIRATIONS UNLABORED. NO DISTRESS NOTED. CALL LIGHT IN REACH.
--- NOTE | 2019-04-14 03:13 | NUR ---
CONTINUES SLEEPING WITH RESPIRATIONS UNALBORED. NO DISTRESS NOTED.
--- NOTE | 2019-04-14 05:31 | NUR ---
QUIET HOURS. NO ACUTE CHANGES IN CONDITION THIS SHIFT. RESTING IN BED WITH NO DISTRESS NOTED.
--- NOTE | 2019-04-14 08:00 | NUR ---
PATIENT IS ALERT/ORIENT. SITTING UP IN WHEELCHAIR BY BEDSIDE TO EAT BREAKFAST. CALL LIGHT WITHIN REACH. VOICES NO NEEDS AT THIS TIME. WILL CONTINUE WITH PLAN OF CARE
--- NOTE | 2019-04-14 09:42 | NUR ---
WOUND CARE GIVEN PER ORDER
--- NOTE | 2019-04-14 11:30 | NUR ---
PATIENT ADMITTED FROM 2238. BROUGHT TO UNIT BE STAFF. IN CONTACT ISOLATION FOR CSVL IN URINE. WOUND VAC TO ABDOMINAL WOUND. PATIENT IS ALERT/ORIENT. DIAG: CRITICAL ILLNESS MYOPATHY. PATIENT IS ALERT/ORIENT. ACCLIMATED TO ROOM.
--- NOTE | 2019-04-14 16:00 | NUR ---
I have reviewed this patient and I concur with the Shift Assessment completed by the Licensed Practical Nurse today this shift.
--- NOTE | 2019-04-14 17:02 | NUR ---
PATIENT HAS VISITORS IN ROOM. SITTING UP IN WHEELCHAIR BY BEDSIDE. VOICES NO NEEDS. CALL LIGHT WITHIN REACH
[2019-04-14 19:26] VITALS: BP 139/76
--- NOTE | 2019-04-14 19:41 | NUR ---
AWAKE AND ALERT. RESTING IN WHEELCHAIR IN ROOM. RESPIRATIONS UNLABORED. NO DISTRESS NOTED. CALL LIGHT IN REACH.
--- NOTE | 2019-04-15 01:43 | NUR ---
CONTINUES SLEEPING WITH RESPIRATIONS UNLABORED. NO DISTRESS NOTED.
--- NOTE | 2019-04-15 05:53 | NUR ---
QUIET HOURS. NO ACUTE CHANGES IN CONDITION THIS SHIFT. RESTING IN BED WITH NO DISTRESS NOTED.
--- NOTE | 2019-04-15 08:00 | NUR ---
PATIENT IS ALERT/FORGETFULL. BED/CHAIR ALARM ON. USING CALL LIGHT FOR NEEDS. VOICES NO NEEDS AT THIS TIME. WILL CONTINUE WITH PLAN OF CARE
[2019-04-15 08:15] VITALS: BP 138/84
--- NOTE | 2019-04-15 12:51 | NUR ---
I have reviewed this patient and I concur with the Shift Assessment completed by the Licensed Practical Nurse today this shift.
--- NOTE | 2019-04-15 13:00 | NUR ---
PATIENT HAS FAMILY IN ROOM VISITING. SITTING UP IN A WHEELCHAIR AT BEDSIDE. NO PT, OT, ST TODAY
--- NOTE | 2019-04-15 17:23 | NUR ---
NURSE ASST IN ROOM. HELPING PATIENT WITH A SHOWER
[2019-04-15 19:10] VITALS: BP 143/71
--- NOTE | 2019-04-15 19:19 | NUR ---
AWAKE AND ALERT. SITTING IN WHEELCHAIR IN ROOM. RESPIRATIONS UNALBORED. RASH/EXCORIATION TO SCROTUM/PENIS IS IMPROVING. VOICES C/O A MOLE ON UPPER RIGHT CHEST AREA THAT HAS HIM CONCERNED. NOTED SMALL SCALY MOLE. MESSAGE LEFT FOR DR TORREZ ON ROUNDING SHEET. NO OTHER NEEDS VOICED. NO DISTRESS NOTED.
--- NOTE | 2019-04-16 00:45 | NUR ---
SLEEPING WITH RESPIRAITONS UNLABORED. NO DISTRESS NOTED.
--- NOTE | 2019-04-16 03:00 | NUR ---
RESTING QUIETLY WITH RESPIRATIONS UNLABORED. NO DISTRESS NOTED.
--- NOTE | 2019-04-16 05:10 | NUR ---
QUIET HOURS. NO ACUTE CHANGES IN CONDITION THIS SHIFT. RESTING IN BED WITH NO DISTRESS NOTED.
[2019-04-16 07:12] LABS: BASOPHILS 0.3 % (0-2); EOSINOPHILS 2.2 % (0-7); HEMOGLOBIN 14.5 g/dL (13.5-17.5); IMMATURE GRANULOCYTES 0.2 % (0-5); LYMPHOCYTES 21.9 % (15-50); MCH 31.7 pg (26.0-34.0); MCV 96.1 fL (80.0-100.0); MEAN PLATELET VOLUME 11.4 fL (7.4-10.4); MONOCYTES 9.7 % (2-11); NEUTROPHILS 65.7 % (40-80); PLATELET COUNT 161 10x3/uL (130-400); RBC 4.58 10x6/uL (4.20-6.10); RDW 12.9 % (11.5-14.5); WBC 6.4 10x3/uL (4.8-10.8)
[2019-04-16 07:16] LABS: CALC OSMOLALITY 283 mosm/kg (275-300); CALCIUM 8.9 mg/dL (8.5-10.1); CARBON DIOXIDE 31.2 mmol/L (21.0-32.0); CHLORIDE - SERUM 106 mmol/L (98-107); GLUCOSE 93 mg/dL (74-106); POTASSIUM - SERUM 3.8 mmol/L (3.5-5.1); SODIUM 142 mmol/L (136-145); UREA NITROGEN 14 mg/dL (7-18); eGFR NON AFRICAN AMERICAN 75 mL/min (90-120)
--- NOTE | 2019-04-16 15:23 | RHP ---
PATIENT: JAVIER PENNY MEDICAL RECORD: [id number] ACCOUNT: [id number] LOCATION:[facility] : 32 ADMISSION DATE: 04/07/19 REHABILITATION HISTORY AND PHYSICAL EXAMINATION POST ADMISSION PHYSICIAN EXAMINATION DATE OF ADMISSION: 04/07/2019 ADMITTING DIAGNOSIS: Debility secondary to cellulitis of the scrotum. HISTORY OF PRESENT ILLNESS: The patient is an 88-year-old gentleman who has a history of hypertension, coronary artery disease, systolic, and diastolic congestive heart failure. He is on Eliquis, has a history of prostate and colon cancer, chronic back pain, dementia, and depression, chronic anticoagulation and AFib. The patient apparently presented to the ED on 04/05/2019 with complaints of confusion, weakness, and scrotal pain. He was seen on 04/02/2019 and diagnosed with cellulitis of scrotum, placed on p.o. antibiotics. He had told the Emergency Room physician that he had been taking his antibiotic but continues to have swelling, oozing, and pain from the scrotum. The patient apparently was at bedside and reported the patient appeared to have confusion that concerned them regarding his worsening infection. He denied alcohol or any type of illicit drug use. He was admitted to medical floor for further evaluation, monitoring, and treatment. Wound care consult has been ordered. He was placed on a cardiac diet, electrolyte protocol, telemetry, self-care deficit, weakness, and has 2 steps to enter his home, which are all barriers to his discharge. Blood and urine cultures have been ordered. Preliminary results are negative. Mr. Penny lives with his family and ambulates with a rolling walker. He and his family help him navigate the steps up to his home. He was previously independent assist for getting up to his house. He is currently mod assist with ADLs and max assist with ambulation. He has only been walking 12 feet. He will need inpatient therapy to regain his strength and be able to return home. COMORBIDITIES: Include falls, hypoxia, dyspnea, shortness of breath, fluid overload, dehydration and electrolyte imbalance, edema, aspiration, respiratory distress, loss of appetite, DVT, problems with cognition and incontinence, anxiety, depression. PAST MEDICAL HISTORY: Significant for dementia, cataracts, hypertension, pacemaker placement in the past, stents and angioplasty in the past, coronary artery disease, history of colon and prostate cancer, acid reflux, arthritis, chronic pain, depression, and dementia. PAST SURGICAL HISTORY: Includes colon surgery, hernia repair, appendectomy, and pacemaker placement. ALLERGIES: TETANUS, KEFLEX, AND PERCOCET. CURRENT MEDICATIONS: Include clindamycin 150 mg q. 6 hours for 10 days, Eliquis 5 mg b.i.d., Plavix 75 mg daily, Nitrostat p.r.n., Rythmol 150 mg b.i.d., amlodipine 5 mg daily, Lexapro 10 mg daily, [place] 5/325 one tab daily p.r.n., lorazepam 1 mg p.o. b.i.d., Namenda 5 mg b.i.d., Requip 0.5 mg bedtime, furosemide 40 mg daily, potassium 10 mEq b.i.d. He is on Alphagan eyedrops 1 drop in the right eye b.i.d. He is on Azopt 1 drop in the eye b.i.d. just right eye and also prednisone and Pred Forte 1 drop t.i.d. in his right eye, Protonix HISTORY AND PHYSICAL [id number] ZOHAIBJAVIER E 40 mg daily, nystatin powder as needed, and B12 2500 mcg p.o. daily. HABITS: No alcohol or tobacco use. FAMILY HISTORY: Noncontributory. SOCIAL HISTORY: The patient hopes to return back home and get back to his prior level of functioning. REVIEW OF SYSTEMS: Generally tough to obtain secondary to his previous dementia. PHYSICAL EXAMINATION: VITAL SIGNS: Stable. He is afebrile. GENERAL: An elderly gentleman who is in no acute distress. HEENT: Normocephalic and atraumatic. Mucosa moist. NECK: Supple. No lymphadenopathy. LUNGS: Clear in upper [place] with no wheezing, rhonchi or rales. HEART: Regular rate and rhythm. He does have a holosystolic murmur. ABDOMEN: Soft, benign, and nondistended. Positive bowel sounds times 4. EXTREMITIES: No clubbing, cyanosis or edema. NEUROLOGIC: Very slow to mentate. SKIN: Skin bedolla, he does have noted redness and erythema and some oozing to his scrotal region. LABORATORY DATA: His white count is 5.5, H&H 15 and 46 and platelet count is 135. His sodium is 142, potassium 3.6, BUN and creatinine of 11 and 0.9, and blood sugar is noted to be 102. All of his liver functions are all within normal limits. His CRP is elevated at 2.8 and his BNP was 734. Admit UA was negative. His admit drug screen that was done on the was positive for opiates. ASSESSMENT: This is an 88-year-old gentleman admitted to the rehab with a working diagnosis of debility secondary cellulitis of the scrotum. Patient has potential to make improvement. We instituted the following multidisciplinary therapies including but not limited to physical, occupational, respiratory, speech, nutritional services, prosthetics, and orthotics. Given his complex medical condition and risk for more complications, rehabilitation services cannot be provided at a low level of care such as a skilled nurse facility. PLAN: 1. Admit to [facility] rehab for an intensive inpatient therapy to include the following disciplines: A. Physical therapy to improve gait, all transfer skills, and bed mobility to a modified independent level. B. Occupational therapy to improve activities of daily living. C. Case management to assist with discharge planning and placement options. D. Nutrition to assist with nutritional needs. E. Rehabilitation nursing to assist in monitoring the patient's underlying HISTORY AND PHYSICAL [id number] JAVIER PENNY medical conditions and to assist with any type of bowel or bladder management. 2. The patient's current medication and medical care will be continued. 3. The patient will be placed on standard fall precautions. 4. We will continue on antibiotics as previously prescribed. 5. I will see again in the a.m. on Tuesday. TRANSINT:[id number] Voice Confirmation ID: [id number] DOCUMENT ID: [id number] JESUSITA notes whether there has been none or any medical/functional change since admission: - No change since preadmission screen. JESUSITA attests patient continues to be appropriate for IRF: - Continues to be appropriate. DRISS TORREZ MD at 1523 CC: [id number] DICTATION DATE: 04/07/191750 OUTSIDE [employer] CONSULTANT: 04/07/191910 ADM IN [facility] [address] [place] [address]
--- NOTE | 2019-04-16 16:06 | NUR ---
PT RESTING IN BED WITH EYES OPEN CALL LIGHT IN REACH WILL MONITER
--- NOTE | 2019-04-16 19:25 | NUR ---
PT SITTING UP IN WHEELCHAIR. CL IN REACH. PT DENIES NEEDS AT THIS TIME. PT A/O X4. LUNGS CLEAR. BOWEL ACTIVE X4. RESP EVEN AND UNLABORED. WILL CONTINUE TO MONITOR.
[2019-04-16 20:04] VITALS: BP 139/80
--- NOTE | 2019-04-17 04:13 | NUR ---
I have reviewed this patient and I concur with the Shift Assessment completed by the Licensed Practical Nurse today this shift.
--- NOTE | 2019-04-17 08:00 | NUR ---
PT RESTING IN BED WITH EYES OPEN CALL [facility] IN REACH NO PROBLEMS WILL MONITER
[2019-04-17 08:18] VITALS: BP 145/82
--- NOTE | 2019-04-17 13:01 | NUR ---
DR MCCARTY CALLLED AND NOTIFIED OF CONSULT
--- NOTE | 2019-04-17 18:44 | NUR ---
PT RESTING IN BED WITH EYES OPEN CALL [facility] IN REACH NO PROBLEMS WILL MONITER
--- NOTE | 2019-04-17 19:30 | NUR ---
PT SITTING UP IN WHEELCHAIR WATCHING TV. CL IN REACH. PT DENIES NEEDS AT THIS TIME. A/O X4. LUNGS CLEAR. BOWEL ACTIVE X4. RESP EVEN AND UNLABORED. BED IN LOW SIDE RAILS X2. WILL CONTINUE TO MONITOR.
[2019-04-17 19:48] VITALS: BP 117/75
--- NOTE | 2019-04-18 03:01 | NUR ---
I have reviewed this patient and I concur with the Shift Assessment completed by the Licensed Practical Nurse today this shift.
[2019-04-18 07:48] LABS: BASOPHILS 0.2 % (0-2); EOSINOPHILS 2.7 % (0-7); HEMATOCRIT 43.9 % (42.0-54.0); HEMOGLOBIN 14.3 g/dL (13.5-17.5); IMMATURE GRANULOCYTES 0.3 % (0-5); LYMPHOCYTES 20.8 % (15-50); MCH 31.4 pg (26.0-34.0); MCHC 32.6 g/dL (31.0-37.0); MCV 96.5 fL (80.0-100.0); MEAN PLATELET VOLUME 11.1 fL (7.4-10.4); MONOCYTES 12.1 % (2-11); NEUTROPHILS 63.9 % (40-80); PLATELET COUNT 151 10x3/uL (130-400); RBC 4.55 10x6/uL (4.20-6.10); RDW 13.1 % (11.5-14.5); WBC 5.9 10x3/uL (4.8-10.8)
[2019-04-18 08:00] VITALS: BP 141/86
--- NOTE | 2019-04-18 08:00 | NUR ---
PATIENT IS ALERT. SOME FORGETFULLNESS NOTED. UP IN WHEELCHAIR TO EAT BREAKFAST. CHAIR ALARM ON. CALL LIGHT WITHIN REACH. VOICES NO NEEDS AT THIS TIME. WILL CONTINUE WITH PLAN OF CARE
[2019-04-18 08:02] LABS: CALC OSMOLALITY 285 mosm/kg (275-300); CALCIUM 8.8 mg/dL (8.5-10.1); CARBON DIOXIDE 31.9 mmol/L (21.0-32.0); CHLORIDE - SERUM 105 mmol/L (98-107); CREATININE - SERUM 0.9 mg/dL (0.6-1.3); GLUCOSE 92 mg/dL (74-106); POTASSIUM - SERUM 3.5 mmol/L (3.5-5.1); SODIUM 143 mmol/L (136-145); UREA NITROGEN 14 mg/dL (7-18); eGFR NON AFRICAN AMERICAN 85 mL/min (90-120)
--- NOTE | 2019-04-18 10:00 | NUR ---
OCCUPATIONAL THERAPIST WORKING WITH PATIENT. HELPING PATIENT WITH A SHOWER.
--- NOTE | 2019-04-18 12:00 | NUR ---
I have reviewed this patient and I concur with the Shift Assessment completed by the Licensed Practical Nurse today this shift.
--- NOTE | 2019-04-18 16:24 | NUR ---
PATIENTS DAUGHTER INTO VISIT. PATIENT SITTING UP IN A WHEELCAIR.
--- NOTE | 2019-04-18 20:19 | NUR ---
AWAKE AND ALERT. RESTING IN WHEELCHAIR IN ROOM. RESPIRATIONS UNALBORED. NO ACUTE DISTRESS NOTED. CALL LIGHT IN REACH.
--- NOTE | 2019-04-19 03:26 | NUR ---
RESTING IN BED WITH RESPIRATIONS UNLABORED. NO DISTRESS NOTED. CALL LIGHT IN REACH.
--- NOTE | 2019-04-19 05:05 | NUR ---
QUIET HOURS. NO ACUTE CHANGES IN CONDITION THIS SHIFT. RESTING IN BED WITH NO DISTRESS NOTED. CALL LIGHT IN REACH.
--- NOTE | 2019-04-19 07:48 | NUR ---
PATIENT SITTING UP IN WHEELCHAIR AT BEDSIDE. CALL LIGHT WITHIN REACH. VOICES NO NEEDS AT THIS TIME. PLAN FOR PATIENT TO DISCHARGE HOME TODAY
[2019-04-19 08:09] VITALS: BP 114/62
[2019-04-19] MEDS ORDERED: HYDROCODON-ACE1 EAC7 PO (08:26)
[2019-04-19] MEDS ORDERED: CLEOCIN HCL150 MG PO (08:28)
--- NOTE | 2019-04-19 09:57 | NUR ---
DR Fredy TORREZ INTO TO SEE PATIENT. NEW ORDERS FOR DISCHARGE GIVEN. PATIENTS FAMILY IN ROOM. WILL TAKE PATIENT HOME. CASEMANAGER WORKING ON DISCHARGE NEEDS FOR THIS PATIENT.
--- NOTE | 2019-04-19 10:29 | NUR ---
PATIENT DISCHARGING HOME TODAY WITH FAMILY. [facility] WILL PROVIDE THERAPY AT HOME. PATIENT CHOICE FORM FOR HOME HEALTH WITH COMPARE DATA REVIEWED WITH PATIENT AND FAMILY. THEY VOICED UNDERSTANDING. NO NEW DME NEEDED AT THIS TIME. DR. POTTER 04/26/2019 @ 8:15, 04/25/2019 @ 3:00. [facility] FORM SIGNED, COPY FILED IN CHART AND ONE GIVEN TO PATIENT. DISCHARGE INSTRUCTIONS FAXED TO PCP, HOME HEALTH AND REVIEWED WITH PATIENT AND FAMILY.
--- NOTE | 2019-04-19 11:00 | NUR ---
I have reviewed this patient and I concur with the Shift Assessment completed by the Licensed Practical Nurse today this shift.
--- NOTE | 2019-04-19 13:08 | NUR ---
DISCHARGE INSTRUCTIONS GIVEN TO PATIENT AND FAMILY. DISCHARGE MEDICATIONS CALLED INTO PHARMACY OF PATIENTS CHOICE. PATIENT HELPED OUT TO CAR BY STAFF
== END 2019-04-19 13:09 | disposition home health service (06) | DRG 948 ==
LOC: D.REHAB 17:19
PROVIDERS: ADMIT Emergency Medicine; ATTEND Emergency Medicine
DX: R53.81 Other malaise (principal); I50.40 Unspecified combined systolic (congestive) and diastolic (congestive) heart failure; I82.409 Acute embolism and thrombosis of unspecified deep veins of unspecified lower extremity; N49.2 Inflammatory disorders of scrotum; I11.0 Hypertensive heart disease with heart failure; F03.90 Unspecified dementia, unspecified severity, without behavioral disturbance, psychotic disturbance, mood disturbance, and anxiety; I48.91 Unspecified atrial fibrillation; Z79.01 Long term (current) use of anticoagulants; R09.02 Hypoxemia; R06.00 Dyspnea, unspecified; R06.02 Shortness of breath; E87.70 Fluid overload, unspecified; E86.0 Dehydration; E87.8 Other disorders of electrolyte and fluid balance, not elsewhere classified; R60.9 Edema, unspecified; R63.0 Anorexia; F41.8 Other specified anxiety disorders; R32 Unspecified urinary incontinence; K21.9 Gastro-esophageal reflux disease without esophagitis; Z95.0 Presence of cardiac pacemaker; Z85.038 Personal history of other malignant neoplasm of large intestine

== ENCOUNTER 2019-04-23 18:57 | Emergency (ER) | payer MEDICARE, BC ==
[~2019-04-23] VITALS: Ht 182.9 cm; Wt 81.8 kg
[2019-04-23 19:00] VITALS: Ht 182.9 cm; Wt 81.8 kg
[2019-04-23 19:43] LABS: BASOPHILS 0.2 % (0-2); EOSINOPHILS 2.6 % (0-7); HEMATOCRIT 44.9 % (42.0-54.0); HEMOGLOBIN 14.7 g/dL (13.5-17.5); IMMATURE GRANULOCYTES 0.2 % (0-5); LYMPHOCYTES 21.4 % (15-50); MCHC 32.7 g/dL (31.0-37.0); MCV 97.8 fL (80.0-100.0); MEAN PLATELET VOLUME 10.6 fL (7.4-10.4); MONOCYTES 7.6 % (2-11); PLATELET COUNT 155 10x3/uL (130-400); RBC 4.59 10x6/uL (4.20-6.10); RDW 12.7 % (11.5-14.5); WBC 6.5 10x3/uL (4.8-10.8)
[2019-04-23 19:57] LABS: CALC OSMOLALITY 280 mosm/kg (275-300); CALCIUM 8.6 mg/dL (8.5-10.1); CARBON DIOXIDE 32.9 mmol/L (21.0-32.0); CHLORIDE - SERUM 103 mmol/L (98-107); CREATININE - SERUM 0.9 mg/dL (0.6-1.3); GLUCOSE 135 mg/dL (74-106); POTASSIUM - SERUM 3.9 mmol/L (3.5-5.1); SODIUM 140 mmol/L (136-145); UREA NITROGEN 13 mg/dL (7-18); eGFR NON AFRICAN AMERICAN 85 mL/min (90-120)
[2019-04-23 20:03] LABS: ALKALINE PHOSPHATASE 92 U/L (46-116); ALT (SGPT) 14 U/L (10-68); BILIRUBIN - TOTAL 0.32 mg/dL (0.2-1.3); PROTEIN - SERUM 6.8 g/dL (6.4-8.2)
[2019-04-23 20:20] LABS: ALBUMIN 3.5 g/dL (3.4-5.0)
[2019-04-23 21:08] LABS: APPEARANCE CLEAR (CLEAR); BILIRUBIN NEGATIVE (NEGATIVE); COLOR YELLOW (YELLOW); GLUCOSE NEGATIVE (NEGATIVE); KETONE NEGATIVE (NEGATIVE); NITRITE NEGATIVE (NEGATIVE); PROTEIN NEGATIVE (NEGATIVE); UROBILINOGEN NORMAL (NORMAL)
[2019-04-23 21:12] LABS: UDS - AMPHET NEGATIVE QUAL (NEGATIVE); UDS - BARB NEGATIVE QUAL (NEGATIVE); UDS - BENZO POSITIVE QUAL (NEGATIVE); UDS - COCAINE NEGATIVE QUAL (NEGATIVE); UDS - OPIATE POSITIVE QUAL (NEGATIVE); UDS - PCP NEGATIVE QUAL (NEGATIVE); UDS - THC NEGATIVE QUAL (NEGATIVE)
[2019-04-23 21:33] VITALS: BP 138/81
== END 2019-04-23 21:33 | disposition home or self-care (01) ==
LOC: D.ER 18:57
PROVIDERS: Emergency Medicine
DX: R46.89 Other symptoms and signs involving appearance and behavior (principal); Z95.0 Presence of cardiac pacemaker; G30.9 Alzheimer's disease, unspecified

== ENCOUNTER 2019-05-24 14:46 | Emergency (ER) | payer MEDICARE, BC ==
[~2019-05-24] VITALS: Ht 182.9 cm; Wt 84.1 kg
[2019-05-24 14:48] VITALS: Ht 182.9 cm; Wt 84.1 kg
[2019-05-24 15:02] LABS: BASOPHILS 0.3 % (0-2); EOSINOPHILS 2.4 % (0-7); HEMATOCRIT 48.9 % (42.0-54.0); HEMOGLOBIN 16.3 g/dL (13.5-17.5); LYMPHOCYTES 32.7 % (15-50); MCH 32.3 pg (26.0-34.0); MCHC 33.3 g/dL (31.0-37.0); MCV 96.8 fL (80.0-100.0); MEAN PLATELET VOLUME 10.9 fL (7.4-10.4); MONOCYTES 7.2 % (2-11); NEUTROPHILS 57.4 % (40-80); PLATELET COUNT 145 10x3/uL (130-400); RBC 5.05 10x6/uL (4.20-6.10); RDW 12.9 % (11.5-14.5); WBC 6.7 10x3/uL (4.8-10.8)
[2019-05-24 15:13] LABS: APTT 32.4 SECONDS (22.8-39.4); INR 1.07 (0.85-1.17); PROTIME 13.8 SECONDS (11.6-15.0)
[2019-05-24 15:15] LABS: CALC OSMOLALITY 277 mosm/kg (275-300); CHLORIDE - SERUM 102 mmol/L (98-107); CREATININE - SERUM 0.9 mg/dL (0.6-1.3); GLUCOSE 81 mg/dL (74-106); POTASSIUM - SERUM 3.8 mmol/L (3.5-5.1); SODIUM 140 mmol/L (136-145); UREA NITROGEN 13 mg/dL (7-18); eGFR NON AFRICAN AMERICAN 85 mL/min (90-120)
[2019-05-24 15:32] LABS: ALBUMIN 3.9 g/dL (3.4-5.0); ALKALINE PHOSPHATASE 88 U/L (30-120); ALT (SGPT) 17 U/L (10-68); BILIRUBIN - TOTAL 0.66 mg/dL (0.2-1.3); CKMB 1.4 U/L (0.0-3.6); CREATINE KINASE 38 UL (21-232); PRO BNP 605 pg/mL (0-450); PROTEIN - SERUM 7.9 g/dL (6.4-8.2)
[2019-05-24 15:34] LABS: TROPONIN-I < 0.017 ng/mL (0.000-0.060)
[2019-05-24 16:30] LABS: APPEARANCE CLEAR (CLEAR); BACTERIA NONE SEEN /hpf (NEGATIVE); BILIRUBIN NEGATIVE (NEGATIVE); COLOR YELLOW (YELLOW); EPITHELIAL CELLS RARE /hpf (0-5); GLUCOSE NEGATIVE (NEGATIVE); KETONE NEGATIVE (NEGATIVE); NITRITE NEGATIVE (NEGATIVE); PROTEIN NEGATIVE (NEGATIVE); RED CELLS - URINE 0-5 /hpf (0-5); UROBILINOGEN NORMAL (NORMAL); WHITE CELLS - URINE OCC /hpf (NEGATIVE)
[2019-05-24 18:15] VITALS: BP 146/96
--- NOTE | 2019-05-27 10:13 | CN ---
PATIENT NAME:JAVIER PENNY MEDICAL RECORD: [id number] : 34 LOCATION:D.ER ADMIT DATE: ACCOUNT: [id number] CONSULTING PHYSICIAN: KAL MENDOZA MD REFERRING PHYSICIAN: STACIE BAUTISTA MD DATE OF CONSULTATION: 05/26/2019 DIAGNOSES: 1. Unstable angina. 2. Shortness of breath, dyspnea on exertion. 3. Pacemaker. 4. Atrial fibrillation. 5. Dementia. 6. Eliquis anticoagulation. 7. Hypertension. 8. Coronary artery disease. 9. Previous percutaneous transluminal coronary angioplasty stent. HISTORY OF PRESENT ILLNESS: Mr. Penny has been having increasing episodes of chest pain, chest discomfort compatible with angina, marked worsening shortness of breath. His chest pain is just like that of his previous angina. Last cardiac stent was in January. His symptomatology has rapidly progressed over the past few days; however, it has been progressing since the beginning of the year. His EKG is paced. Troponin is negative. He continues to have episodes of chest pain. PHYSICAL EXAMINATION: CONSTITUTIONAL/GENERAL APPEARANCE: Well nourished, well developed, appears stated age. EYES: Lids and conjunctivae noninjected. No discharge. No pallor. ENT: Lips within normal limit. No cyanosis. No pallor. NECK: Carotid arteries, bilateral normal upstroke. No bruits. No thrills. No jugular venous pressure or distention. CERVICAL LYMPH NODES: Nontender. Nonenlarged. THYROID: Not enlarged. No nodules. CARDIOVASCULAR: Precordial exam, nondisplaced. No heaves or pericardial thrills. Rate and rhythm, regular. Heart sounds, normal S1, normal S2. No S3, no gallop, no rub. Systolic murmur, not heard. Diastolic murmur, not heard. RESPIRATORY: Respiratory effort, unlabored. Normal curvature. No thoracic deformity. No chest wall tenderness. Percussion, resonant. Auscultation, clear. No wheezes, no rales, no rhonchi. ABDOMEN: Soft, nondistended, nontender. No abdominal pain, no vomiting and normal appetite. MUSCULOSKELETAL: No joint tenderness, normal gait, normal tone. SKIN: Warm and dry. OVERALL IMPRESSION: Unstable angina. We will add nitrate, proceed with coronary angiography in the near future. Further care depends upon the findings of the angiography. TRANSINT:[id number] Voice Confirmation ID: [id number] DOCUMENT ID: [id number] CONSULT REPORT [id number] JAVIER PENNY, KAL ORONA at 1013 CC: [id number] DICTATION DATE: 05/26/19 1347 MUSIC AUTOGRAPHER: 05/26/19 1445 DEP ER 05/24/19 [place] [id number]
== END 2019-05-24 18:20 | disposition home or self-care (01) ==
LOC: D.ER 14:46
PROVIDERS: Family Medicine
DX: R53.1 Weakness (principal); R06.00 Dyspnea, unspecified; Z95.0 Presence of cardiac pacemaker; G30.9 Alzheimer's disease, unspecified; F02.80 Dementia in other diseases classified elsewhere, unspecified severity, without behavioral disturbance, psychotic disturbance, mood disturbance, and anxiety; Z86.711 Personal history of pulmonary embolism

== ENCOUNTER 2019-05-26 12:38 | Inpatient (IN) | payer MEDICARE, BC ==
[~2019-05-26] VITALS: Ht 182.9 cm; Wt 85.1 kg
--- NOTE | ~2019-05-26 | HEMODYNAMI ---
PATIENT:JAVIER PENNY MEDICAL RECORD: [id number] : 34 [id number] ADMISSION DATE: 05/26/19 Generatedon:05/28/201916:21 Patient name: JAVIER PENNY Patient #: [id number] : 1930 Date of study: 05/28/2019 Page: Of Hemodynamic Procedure Report Patient Data Patient Demographics Procedure consent was obtained First Name: JAVIER Gender: Male Last Name: ZOHAIB : 1930 Middle Initial: E Age: 88 year(s) Patient #: [id number] Race: SSN: [id number] Additional ID: [id number] Contact details Address: [address] [place] [address] ROAD State: [place] City: [place] Zip code: [address] Past Medical History History of disease Date Diagnosis Comments CAD Allergies Allergen Reaction Date Comments Reported Other allergy 02/08/2018 Tetanus,Keflex Other allergy 05/28/2019 PERCOCET, KEFLEX, OXYCODONE, ACETAMINOPHEN Admission Admission Data Admission Date: 05/26/2019 Admission Time: 14:27 Room #: 2119 Lab Results Lab Result Date: 05/28/2019 Lab Result Time: 0:00 Biochemistry Name Units Result Min Max BUN mg/dl 12 --(-*--)-- 7 18 Creatinine mg/dl 0.9 --(-*--)-- 0.6 1.3 eGFR ml/min 85.99659 -*(----)-- 90 120 NONAFRICAN CBC Name Units Result Min Max Hematocrit % 38.8 *-(----)-- 42 54 Hemoglobin g/dl 12.8 -*(----)-- 13.5 17.5 Procedure Procedure Types Cath Procedure Diagnostic Procedure LHC [facility] w/Coronaries FFR/IVUS FFR Initial Sedation Charges Moderate Sedation up to 15 minutes PCI Procedure Coronary Stent Coronary Stent Initial x2 Hemochron ACT Test Procedure Description Procedure Date Procedure Date: 05/28/2019 Procedure Start Time: 16:01 Procedure End Time: 16:19 Procedure Staff Name Function Nader Burk MD Performing Physician Patito Au RT Monitor Jaye Bull RT Scrub Eric Burk RN Nurse nAy Damon RN Director Of Sales Support Procedure Data Cath Procedure Fluoroscopy Diagnostic fluoroscopy Total fluoroscopy Time: 5.4 time: 5.4 min min Diagnostic fluoroscopy Total fluoroscopy dose: 914 dose: 914 mGy mGy Contrast Material Contrast Material Type Amount (ml) Isovue 300 121 Entry Location Entry Primary Successful Side Size Upsize Upsize Entry Closure Knowles ccessful Closure Location (Fr) 1 (Fr) 2 (Fr) Remarks Device Remarks Radial Right 6 Fr Mechanical artery Short Compression Estimated blood loss: 10 ml Diagnostic catheters Device Type Used For End Catheter Placement DIAGNOSTIC [place] 110cm 5 Procedure Fr catheter ([id number]) Procedure Complications No complications Procedure Medications Medication Administration Route Dosage 0.9% NaCl I.V. 100 ml/hr Oxygen etCO2 Nasal cannula 2 l/min Heparin Flush Bag added to field 1 bags (1000units/500ml NS) Lidocaine 2% added to field 20 Radial Cocktail added to field 1 syringe (Verapamil 2mg/Nitro 400mcg/Heparin 1500units) Versed I.V. 1 mg Fentanyl I.V. 50 mcg Radial Cocktail I.A. 1 syringe (Verapamil 2mg/Nitro 400mcg/Heparin 1500units) Heparin Bolus I.V. 4000 units Hemodynamics Rest HGB: 12.8 (g/dl) Heart Rate: 90 (bpm) Snapshots Pre Cath Intra NCS Post Cath Vital Signs Time Heart Resp SPO2 etCO2 NIBP (mmHg) Rhythm Pain Sedation Rate (ipm) (%) (mmHg) Status Level (bpm) 15:59:09 90 15 96 31.8 136/80(112) Paced 0 (11) 10(A) , No pain 16:03:21 90 14 94 35.5 130/75(103) Paced 0 (11) 10(A) , No pain 16:07:29 90 14 94 36.2 132/82(109) Paced 0 (11) 10(A) , No pain 16:11:41 90 10 95 37 136/84(107) Paced 0 (11) 10(A) , No pain 16:15:53 90 16 95 34.8 138/84(108) Paced 0 (11) 10(A) , No pain Medications Time Medication Route Dose Verified Delivered Reason Not es Effectiveness by by 15:57:26 0.9% NaCl I.V. 100 Eric Eric Per physician ml/hr Bhargavi Burk RN RN 15:57:34 Oxygen etCO2 2 l/min Eric Eric for low 02 sats Nasal Bhargavi Burk cannula RN RN 15:57:44 Heparin Flush added 1 bags Eric Eric used for Bag to Lorcarlos Burk procedure (1000units/500ml field RN RN NS) 15:57:54 Lidocaine 2% added 20ml Eric Eric for local to vial Lorigan Bhargavi anesthetic field RN RN 15:58:04 Radial Cocktail added 1 Eric Eric used for (Verapamil to syringe Lorigan Bhargavi procedure 2mg/Nitro field MUSTAFA RN 400mcg/Heparin 1500units) 16:00:11 Versed I.V. 1 mg Eric Eric for sedation Bhargavi Burk RN RN 16:00:20 Fentanyl I.V. 50 mcg Eric Eric for sedation Bhargavi Burk RN RN 16:02:02 Radial Cocktail I.A. 1 Eric Nader for (Verapamil syringe Gaylaigan Tauth MD vasodilation 2mg/Nitro RN 400mcg/Heparin 1500units) 16:07:14 Heparin Bolus I.V. 4000 Eric Eric for units Bhargavi Burk anticoagulation RN membership sales advisor Log Time Note 15:33:44 Informed consent obtained and on chart 15:34:10 Procedure Status Urgent Heart Cath (IP). 15:34:13 Any Damon RN sent for patient. Start room use. 15:34:14 Time tracking: Regular hours (M-F 7:00 - 5:00) 15:34:18 Plan of Care:Hemodynamics will remain stable., Cardiac rhythm will remain stable., Comfort level will be maintained., Respiratory function will remain adequate., Patient/ family verbilizes understanding of procedure., Procedure tolerated without complication., Recovers from procedure without complications.. 15:34:21 H&P Date Dictated: 05/28/2019 ER History on chart.. 15:38:10 Patient allergic to Other allergyPERCOCET, KEFLEX, OXYCODONE, ACETAMINOPHEN 15:40:31 Lab Result : BUN 12 mg/dl 15:40:31 Lab Result : Creatinine 0.9 mg/dl 15:40:31 Lab Result : eGFR NONAFRICAN 85.92207 ml/min 15:40:31 Lab Result : Hemoglobin 12.8 g/dl 15:40:31 Lab Result : Hematocrit 38.8 % 15:42:54 Risk of Mortality: .1 15:42:57 Risk of blood transfusion: .5 15:43:00 Risk of CELESTE: 5.3 15:43:05 Stress Test: no; N/A ? 15:50:02 Patient received from Med II to CCL 1 Alert and oriented. Tansferred to table in Supine position. 15:50:08 Warm blankets applied, and lydia hugger turned on for patient comfort. 15:50:09 ECG and BP/O2 sat monitors applied to patient. 15:50:10 Correct patient and procedure confirmed by team. 15:50:18 Rhythm: sinus rhythm , paced 15:50:19 Full Disclosure recording started 15:50:25 Pre-procedure instructions explained to patient. 15:50:25 Pre-op teaching completed and patient verbalized understanding. 15:50:32 Family in patients room. 15:50:33 Patient NPO since Midnight. 15:50:36 Is the patient allergic to Iodine/contrast media? No. 15:50:37 Is patient on blood thinner?Yes 15:50:39 ACC The patient was administered the following blood thiners within the last 24 hours: ACCPlavix 15:50:41 Patient diabetic? No. 15:50:46 Previous problem with sedation/anesthesia? Unknown ? 15:50:48 Snore? Unknown 15:50:49 Sleep apnea? Unknown 15:50:51 Deviated septum? Unknown 15:50:52 Opens mouth fully? Yes 15:50:54 Sticks out tongue? Yes 15:51:06 Airway obstruction? Unknown ? 15:51:09 Dentures? Unknown ? 15:51:14 Modified Juan Carlos's test Ulnar < 7 seconds 15:51:18 Pre procedure: right dorsailis pedis pulse 1+ Palpable, but thready & weak; easily obliterated 15:52:03 IV patent on arrival in left antecubital with 0.9% NaCl at [facility]. 15:52:06 Lab results completed and on chart. 15:52:10 Right Radial & Right Groin area was prepped with chlora-prep and draped in sterile fashion 15:52:11 Alarms reviewed by R. N. 15:52:11 Sharps counted by scrub and verified by R.N. 15:53:26 Baseline sample Acquired. 15:54:22 Use device set Radial Dx or PCI 15:54:24 ACIST Syringe (62824) opened to sterile field. 15:54:24 Bag Decanter (2002S) opened to sterile field. 15:54:25 ACIST Hand Control (33859) opened to sterile field. 15:54:25 ACIST Manifold (42957) opened to sterile field. 15:54:25 Tegaderm 4 x 4 (1626W) opened to sterile field. 15:54:27 Medline Cath Pack ([id number]) opened to sterile field. 15:54:27 MBrace Wrist Support (231805664) opened to sterile field. 15:54:29 EMERALD Guide Wire (754-887) opened to sterile field. 15:54:30 SHEATH 6FR RAIN (9946229) opened to sterile field. 15:57:26 0.9% NaCl 100 ml/hr I.V. was administered by Eric Burk RN; Per physician; Verbal order read back and verified. 15:57:34 Oxygen 2 l/min etCO2 Nasal cannula was administered by Eric Burk RN; for low 02 sats; Verbal order read back and verified. 15:57:44 Heparin Flush Bag (1000units/500ml NS) 1 bags added to field was administered by Eric Burk RN; used for procedure; Verbal order read back and verified. 15:57:54 Lidocaine 2% 20ml vial added to field was administered by Eric Burk RN; for local anesthetic; Verbal order read back and verified. 15:58:04 Radial Cocktail (Verapamil 2mg/Nitro 400mcg/Heparin 1500units) 1 syringe added to field was administered by Eric Burk RN; used for procedure; Verbal order read back and verified. 15:58:10 Vital chart was started 15:59:12 --------ALL STOP TIME OUT------ 15:59:12 Final Timeout: patient, procedure, and site verified with staff and physician. All members of the team are in agreement. 15:59:15 Right Radial & Right Groin site verified by team. 15:59:19 Fire Safety Assessment: A--An alcohol-based skin anteseptic being used preoperatively., C--Open oxygen or nitrous oxide is being used., D--An ESU, laser, or fiber-optic light is being used. 15:59:21 Physical assessment completed. ASA score P 3 - A patient with severe systemic disease as per Nader Burk MD. 15:59:25 2) 60-89 Mildly reduced kidney function, and other findings (as for stage 1) point to kidney disease. 15:59:28 Maximum allowable contrast dose (3.7 X eGFR X 0.75)236 ml. 15:59:32 Sedation plan: IV Moderate Sedation Medication:Versed, Fentanyl 15:59:35 Procedure started. 16:00:11 Versed 1 mg I.V. was administered by Eric Burk RN; for sedation; Verbal order read back and verified. 16:00:20 Fentanyl 50 mcg I.V. was administered by Eric Burk RN; for sedation; Verbal order read back and verified. 16:01:07 Local anesthetic to right radial artery with Lidocaine 2% by Nader Burk MD.INITIAL ACCESS ONLY 16:01:25 A 6 Fr Short sheath was inserted into the Right Radial artery 16:02:01 A DIAGNOSTIC [place] 110cm 5 Fr catheter (461850) was advanced over the wire and used for Procedure. 16:02:02 Radial Cocktail (Verapamil 2mg/Nitro 400mcg/Heparin 1500units) 1 syringe I.A. was administered by Nader Burk MD; for vasodilation; Verbal order read back and verified. 16:02:17 LV gram done using RANGEL 16:02:19 Injector settings: Ml/sec: 5, Volume: 15, 16:02:24 EF : 55 % 16:03:08 LCA angiography performed. 16:03:51 RCA angiography performed. 16:03:53 Catheter exchanged over wire. 16:04:10 GUIDE 6FR XBLAD 4.0 catheter ([id number]) opened to sterile field. 16:04:11 INFLATOR Merit BasixCompak (FU0856) opened to sterile field. 16:04:42 Proceeding to intervention. 16:04:53 CHOICE PT Extra Support 182cm wire ([id number]) opened to sterile field. 16:05:32 6 Fr XBLAD 4 guide catheter was inserted over the wire 16:06:33 Pre PCI Site: [place] Diag1 has 90% stenosis. 16:07:04 CHOICE 182 wire advanced. 16:07:14 Heparin Bolus 4000 units I.V. was administered by Eric Burk RN; for anticoagulation; Verbal order read back and verified. 16:07:41 Wire advanced across lesion. 16:09:15 Place stent Inflation Number: 1 A BRISEYDA RX 2.5 x 18 stent ([id number]) was prepped and advanced across the 1st Diag . The stent was deployed at 13 LUZ for 0:00 (min:sec) . 16:09:33 Stent catheter was removed intact over wire. 16:09:33 Wire removed. 16:09:34 Guide catheter removed. 16:09:44 GUIDE 6FR AR 2.0 catheter ([id number]) opened to sterile field. 16:10:42 6 Fr AR 2 guide catheter was inserted over the wire 16:11:14 Clickyreserva Verrata Plus pressure wire (10839S) opened to sterile field. 16:12:01 FFR/IFR wire advanced. 16:12:34 Wire advanced across lesion. 16:13:14 RCA lesion measured at .85 with IFR 16:13:29 Pre PCI Site: [place] RCA has 80% stenosis. 16:14:05 Place stent Inflation Number: 1 A BRISEYDA Rx 4.0 x 38 stent ([id number]) was prepped and advanced across the Prox RCA . The stent was deployed at 21 LUZ for 0:00 (min:sec) . 16:14:55 Stent catheter was removed intact over wire. 16:14:57 Wire removed. 16:14:57 Guide catheter removed. 16:15:02 ZEPHYR REGULAR TR BAND (026583) opened to sterile field. 16:15:11 Sheath removed intact; hemostasis achieved with Mechanical Compression to the Right Radial artery. 16:15:15 Procedure ended.(Physican Out) 16:16:35 Fluoroscopy time 05.40 minutes. 16:16:39 Flurop Dose total: 914 16:16:39 Fluoroscopy dose: 914 mGy 16:16:46 Dose Area Product 56293 mGy/cm. 16:16:50 Contrast amount:Isovue 300 121ml. 16:16:52 Maximum allowable dose exceeded? No. 16:16:53 Sharps counted by scrub and verified by R.N. 16:16:54 [place] band inflated with 10cc of air. 16:16:58 Post-procedure physical assessment completed. ASA score P 3 - A patient with severe systemic disease as per Nader Burk MD. 16:17:01 Post procedure rhythm: unchanged. 16:17:03 Estimated blood loss: 10 ml 16:17:05 Post procedure instruction explained to patient.Patient verbalizes understanding. 16:17:05 Patient needs reinforcement of post procedure teaching. 16:17:26 Procedure type changed to Cath procedure, Diagnostic procedure, LHC, C w/Coronaries, FFR/IVUS, FFR Initial, Sedation Charges, Moderate Sedation up to 15 minutes, PCI procedure, Coronary Stent, Coronary Stent Initial x2, Hemochron ACT Test 16:18:18 ACT drawn and resulted at 232 seconds. (normal therapeutic range 180-240 seconds). 16:18:47 Procedure and supply charges have been captured, reviewed, submitted and are correct. 16:18:50 Procedure Complication : No complications 16:18:54 Vital chart was stopped 16:18:56 [facility] Findings: MVD- PCI performed (see procedure note) 16:18:58 Operative report dictated upon procedure completion. 16:18:58 See physician's report for complete and final results. 16:19:03 Report given to [facility]. 16:19:05 Patient transfered to [facility] with Bed. 16:19:06 Procedure ended. 16:19:06 Full Disclosure recording stopped 16:19:13 ACC-PCI Only Patient was given prescriptions, or instructed by Nader Burk MD to start/continue the following medications upon discharge: Plavix 16:19:14 End room use (Document Last) 16:20:51 End room use (Document Last) 16:21:12 End room use (Document Last) Intervention Summary Intervention Notes Time ActionType Lesion and Equipment Used Action# Pressure Duration Attributes 16:09:15 Place stent 1st Diag BRISEYDA RX 2.5 x 1 13 00:00 18 stent ([id number]) 16:14:05 Place stent Prox RCA BRISEYDA Rx 4.0 x 1 21 00:00 38 stent ([id number]) Device Usage Item Name Manufacture Quantity Catalog Number Hospital Part Current Minimal Lot# / Charge Number Stock Stock Serial# Code ACIST Syringe Acist 1 70479 192219 924532 884524 20 (27994) Medical Systems Inc Bag Decanter Microtek 1 2001S 117792 44926 432306 5 (2001S) Medical Inc. ACIST Hand Acist 1 32566 169855 103129 912784 5 Control Medical (07067) Systems Inc ACIST Manifold Acist 1 68110 288181 985009 996372 5 (13952) Medical Systems Inc Tegaderm 4 x 4 3M 1 1626W 123196 745378 372177 5 (1626W) Medline Cath Medline 1 [id number] 712234 69373 853746 5 Pack ([id number]) MBrace Wrist Advanced 1 140-0250-00 959598 14796 765884 5 Support Vascular (345386970) Dynamics EMERALD Guide Cardinal 1 502-455 300224 638557 671797 5 Wire (502455) Health SHEATH 6FR Cardinal 1 0314178 827608 9787819 075720 5 RAIN (9022910) Health DIAGNOSTIC Terumo 1 40-5013 573917 069330 264772 5 [place] 110cm 5 Fr catheter (612622) GUIDE 6FR Cardinal 1 [id number] 999423 914004 564085 3 XBLAD 4.0 Health catheter (55316418) INFLATOR Merit Merit 1 KT6894 361198 999762 217087 15 [facility] Medical (UM5054) CHOICE PT [place] 1 [id number] 284294 006309 360382 5 Extra Support Scientific 182cm wire (7460370X4) BRISEYDA RX 2.5 x Medtronic 1 [id number] 800266 1309975 754273 5 [id number] 18 stent ([id number]) GUIDE 6FR AR Medtronic 1 [id number] 673407 13667 839984 1 2.0 catheter (UC7XK64) Waldron Waldron 1 11541O 696895 776307282 654290 5 Verrata Plus pressure wire (16849H) BRISEYDA Rx 4.0 x Medtronic 1 [id number] 993801 6482888 066283 5 [id number] 38 stent ([id number]) ZEPHYR REGULAR Cardinal 1 167808 985431 2388010 295210 5 [facility] (401858) Signature Audit [place] Stage Time Signature Unsigned Intra-Procedure 05/28/2019 Patito Au 4:20:51 PM RT(R) Intra-Procedure 05/28/2019 Eric 4:21:12 PM Bhargavi MUSTAFA Intra-Procedure 05/28/2019 Nader Burk 4:21:27 PM [facility] [address] [place] [address]
[2019-05-26 13:01] LABS: BASOPHILS 0.1 % (0-2); EOSINOPHILS 0.5 % (0-7); HEMOGLOBIN 16.2 g/dL (13.5-17.5); IMMATURE GRANULOCYTES 0.2 % (0-5); LYMPHOCYTES 10.2 % (15-50); MCHC 33.1 g/dL (31.0-37.0); MCV 96.8 fL (80.0-100.0); MEAN PLATELET VOLUME 10.6 fL (7.4-10.4); MONOCYTES 8.4 % (2-11); NEUTROPHILS 80.6 % (40-80); PLATELET COUNT 133 10x3/uL (130-400); RBC 5.06 10x6/uL (4.20-6.10); RDW 12.9 % (11.5-14.5)
[2019-05-26 13:07] LABS: WBC 12.9 10x3/uL (4.8-10.8)
[2019-05-26 13:23] LABS: CALC OSMOLALITY 279 mosm/kg (275-300); CALCIUM 9.3 mg/dL (8.5-10.1); CARBON DIOXIDE 31.7 mmol/L (21.0-32.0); CHLORIDE - SERUM 101 mmol/L (98-107); GLUCOSE 109 mg/dL (74-106); POTASSIUM - SERUM 3.8 mmol/L (3.5-5.1); SODIUM 139 mmol/L (136-145); UREA NITROGEN 16 mg/dL (7-18); eGFR NON AFRICAN AMERICAN 75 mL/min (90-120)
[2019-05-26 13:40] LABS: ALBUMIN 3.8 g/dL (3.4-5.0); ALKALINE PHOSPHATASE 86 U/L (30-120); ALT (SGPT) 13 U/L (10-68); BILIRUBIN - TOTAL 0.53 mg/dL (0.2-1.3); CKMB 0.7 U/L (0.0-3.6); CREATINE KINASE 34 UL (21-232); PRO BNP 691 pg/mL (0-450); PROTEIN - SERUM 7.7 g/dL (6.4-8.2)
[2019-05-26 13:41] LABS: TROPONIN-I < 0.017 ng/mL (0.000-0.060)
[2019-05-26 14:33] LABS: APTT 33.5 SECONDS (22.8-39.4); INR 1.1 (0.85-1.17); PROTIME 14.1 SECONDS (11.6-15.0)
[2019-05-26 16:00] LABS: BILIRUBIN NEGATIVE (NEGATIVE); GLUCOSE NEGATIVE (NEGATIVE); KETONE LARGE mg/dL (NEGATIVE); NITRITE POSITIVE (NEGATIVE); SPECIFIC GRAVITY 1.015 (1.005-1.020); UROBILINOGEN NORMAL (NORMAL)
[2019-05-26 16:02] LABS: BACTERIA MANY /hpf (NEGATIVE); EPITHELIAL CELLS 0-5 /hpf (0-5)
--- NOTE | 2019-05-26 17:36 | NUR ---
TRANSFER FROM ER BY W/C. AYDININTED TO ROOM. CALL LIGHT IN REACH. WILL CONT. PLAN OF CARE.
--- NOTE | 2019-05-26 20:00 | NUR ---
REPORT RECIEVED AND INITIAL ROUNDS COMPLETED. SEE SHIFT ASSESSMENT. NO DISTRESS. RESTING IN BED. IVF NS @ 100ML/HR INFUSING. CPOC.
[2019-05-26 20:33] LABS: CKMB 0.5 U/L (0.0-3.6); CREATINE KINASE 27 UL (21-232)
[2019-05-26 20:36] LABS: TROPONIN-I < 0.017 ng/mL (0.000-0.060)
[2019-05-27 01:22] LABS: BASOPHILS 0.1 % (0-2); EOSINOPHILS 0.1 % (0-7); HEMATOCRIT 40.2 % (42.0-54.0); HEMOGLOBIN 13.5 g/dL (13.5-17.5); IMMATURE GRANULOCYTES 0.2 % (0-5); MCH 31.9 pg (26.0-34.0); MCHC 33.6 g/dL (31.0-37.0); MEAN PLATELET VOLUME 10.8 fL (7.4-10.4); MONOCYTES 10.9 % (2-11); NEUTROPHILS 78.7 % (40-80); PLATELET COUNT 126 10x3/uL (130-400); RBC 4.23 10x6/uL (4.20-6.10); RDW 12.9 % (11.5-14.5); WBC 12.7 10x3/uL (4.8-10.8)
[2019-05-27 01:45] LABS: ALKALINE PHOSPHATASE 63 U/L (30-120); ALT (SGPT) 9 U/L (10-68); BILIRUBIN - TOTAL 1.38 mg/dL (0.2-1.3); CALC OSMOLALITY 273 mosm/kg (275-300); CALCIUM 8.7 mg/dL (8.5-10.1); CARBON DIOXIDE 28.7 mmol/L (21.0-32.0); CHLORIDE - SERUM 101 mmol/L (98-107); CKMB 0.2 U/L (0.0-3.6); CREATINE KINASE 24 UL (21-232); CREATININE - SERUM 1.1 mg/dL (0.6-1.3); GLUCOSE 125 mg/dL (74-106); MAGNESIUM - SERUM 1.8 mg/dL (1.8-2.4); POTASSIUM - SERUM 3.4 mmol/L (3.5-5.1); PROTEIN - SERUM 6.3 g/dL (6.4-8.2); SODIUM 136 mmol/L (136-145); TROPONIN-I < 0.017 ng/mL (0.000-0.060); UREA NITROGEN 15 mg/dL (7-18); eGFR NON AFRICAN AMERICAN 67 mL/min (90-120)
[2019-05-27 07:30] LABS: CKMB 0.3 U/L (0.0-3.6); CREATINE KINASE 30 UL (21-232)
[2019-05-27 07:32] LABS: TROPONIN-I < 0.017 ng/mL (0.000-0.060)
--- NOTE | 2019-05-27 21:31 | NUR ---
RECEIVED UP IN BED WITH EYES OPEN AND VISITOR AT BEDSIDE. IV TO LT ARM WITH NS AT 100CC/HR. TELEMETRY IN PLACE. REQUEST TO WEAR BRIEFS IN BED. BED ALARM IN PLACE. DENIES ANY NEEDS AT THIS TIME.
[2019-05-28 06:01] LABS: BASOPHILS 0.1 % (0-2); EOSINOPHILS 1.1 % (0-7); HEMATOCRIT 38.8 % (42.0-54.0); HEMOGLOBIN 12.8 g/dL (13.5-17.5); IMMATURE GRANULOCYTES 0.2 % (0-5); LYMPHOCYTES 12.8 % (15-50); MCH 31.1 pg (26.0-34.0); MCV 94.4 fL (80.0-100.0); MEAN PLATELET VOLUME 10.5 fL (7.4-10.4); MONOCYTES 9.2 % (2-11); NEUTROPHILS 76.6 % (40-80); PLATELET COUNT 118 10x3/uL (130-400); RBC 4.11 10x6/uL (4.20-6.10)
[2019-05-28 06:06] LABS: WBC 8.3 10x3/uL (4.8-10.8)
[2019-05-28 06:32] LABS: CALC OSMOLALITY 278 mosm/kg (275-300); CALCIUM 8.9 mg/dL (8.5-10.1); CARBON DIOXIDE 27.8 mmol/L (21.0-32.0); CHLORIDE - SERUM 105 mmol/L (98-107); CREATININE - SERUM 0.9 mg/dL (0.6-1.3); GLUCOSE 109 mg/dL (74-106); POTASSIUM - SERUM 3.4 mmol/L (3.5-5.1); SODIUM 139 mmol/L (136-145); UREA NITROGEN 12 mg/dL (7-18); eGFR NON AFRICAN AMERICAN 85 mL/min (90-120)
[2019-05-28 14:51] VITALS: Ht 182.9 cm; Wt 85.1 kg
--- NOTE | 2019-05-28 15:46 | NUR ---
TRANSPORTED TO [facility] BY BED. WILL CONT. PLAN OF CARE.
--- NOTE | 2019-05-28 17:56 | MORECARE ---
CASE MANAGEMENT DISCHARGE SUMMARY PATIENT: JAVIER PENNY UNIT: [id number] ADM DATE: 05/26/19 AGE: 88 : 34 SEX: M ROOM/BED: D.2119 AUTHOR: GONZÁLEZ OLVERA PHYSICIAN: REFERRING PHYSICIAN: KEAGAN REYNA DO DATE OF SERVICE: 05/28/19 Discharge Plan Patient Name: [facility]AVIER PENNY [facility] : 1930 Planned Disposition: Inpatient Rehab Anticipated Discharge Date: 05/29/19 Discharge Date: Expected LOS: 3 Initial Reviewer: [email or web address] Initial Review Date: 05/29/2019 Generated: 05/28/19 6:56 pm DCPIA - Discharge Planning Initial Assessment Updated by [email or web address]: Kaushik Nguyễn on 05/28/19 5:53 pm * Is the patient Alert and Oriented? No * How many steps to enter\exit or inside your home? NONE * PCP DR. POTTER * Pharmacy [facility] * Preadmission Environment Home with Family * ADLs Partial Dependent * Partial ADLs (Assistance needed) Medication Management * Equipment Back Brace Shower Chair Walker * Other Equipment [employer] - MEDICAL EQUIPMENT PROVIDER PREFERNCE * List name and contact numbers for known caregivers / representatives who currently or will assist patient after discharge: KRISTIN PENNY, ESME, MADINA ARMENTA, * Verbal permission to speak to the caregivers and representatives has been obtained from the patient. N/A * Community resources currently utilized None * Please name any agencies selected above. NONE * Additional services required to return to the preadmission environment? Yes * Can the patient safely return to the preadmission environment? Yes * Has this patient been hospitalized within the prior 30 days at any hospital? No Patient Name: JAVIER PENNY Page [phone] at 1756 All edits/amendments must be made on the electronic document DICTATION DATE: 05/28/191755 UNDERWRITING SALES REPRESENTATIVE: RICHIE 05/28/191755 RPT#: [id number] DC DATE: STATUS: ADM IN [facility] [address] [place] [address] END OF REPORT
--- NOTE | 2019-05-28 18:03 | MORECARE ---
CASE MANAGEMENT DISCHARGE SUMMARY PATIENT: JAVIER PENNY UNIT: [id number] ADM DATE: 05/26/19 AGE: 88 : 32 SEX: M ROOM/BED: D.2119 AUTHOR: WADEDOC PHYSICIAN: REFERRING PHYSICIAN: KEAGAN REYNA DO DATE OF SERVICE: 05/28/19 Discharge Plan Patient Name: JAVIER PENNY [facility] [facility] 1930 Planned Disposition: Inpatient Rehab Anticipated Discharge Date: 05/29/19 Discharge Date: Expected LOS: 3 Initial Reviewer: [email or web address] Initial Review Date: 05/29/2019 Generated: 05/28/19 7:02 pm Comments DCP- Discharge Planning Updated by [email or web address]: Kaushik Nguyễn on 05/28/19 4:[address] Patient Name: JAVIER PENNY Admission Status: ER Accout number: [id number] Admission Date: 05-26-2019 : 1930 Admission Diagnosis: Attending: KEAGAN REYNA Current LOS: 2 Anticipated DC Date: 05-29-2019 Planned Disposition: Inpatient Rehab Primary Insurance: MEDICARE A & B PLANNED EXTERNAL PROVIDER: [facility] Discharge Planning Comments: CM RECEIVED ORDER FOR A WHEELCHAIR AND INPATIENT REHAB PRESCREENING. CM MET WITH PT IN ROOM TO DISCUSS NEEDS, PT REPORTS CM SHOULD SPEAK TO HIS GRAND DAUGHTERS. CM PROVIDED AND DISCUSSED IMPORTANT MESSAGE FROM MEDICARE. PT STATES WILLINGNESS FOR INPATIENT "DOWNSTAIRS". CHOICE COMPLETED. CM CALLED KRISTIN PENNY, , WHO DOES WANT WHEELCHAIR FOR DISCHARGE AND IS IN AGREEMENT WITH REHAB AT [facility]. CM SPOKE TO TANNER BLISS, , WHO IS ALSO IN AGREEMENT WITH ABOVE. CM FAXED ORDER FOR WHEELCHAIR TO [facility] AT [phone]. CM WAITING INPATIENT REHAB PRESCREEN RESULT FROM [facility]. Parts Room Clerk: Kaushik Nguyễn DCPIA - Discharge Planning Initial Assessment Updated by [email or web address]: Kaushik Nguyễn on 05/28/19 5:53 pm * Is the patient Alert and Oriented? No * How many steps to enter\\exit or inside your home? NONE * PCP DR. POTTER * Pharmacy [facility] * Preadmission Environment Home with Family * ADLs Partial Dependent * Partial ADLs (Assistance needed) Medication Management * Equipment Back Brace Shower Chair Walker * Other Equipment [facility] - MEDICAL EQUIPMENT PROVIDER [employer]REFERNCE * List name and contact numbers for known caregivers / representatives who currently or will assist patient after discharge: KRISTIN PENNY, DAUGHTER, MASTER ARMENTAUGHER, * Verbal permission to speak to the caregivers and representatives has been obtained from the patient. N/A * Community resources currently utilized None * Please name any agencies selected above. NONE * Additional services required to return to the preadmission environment? Yes * Can the patient safely return to the preadmission environment? Yes * Has this patient been hospitalized within the prior 30 days at any hospital? No External Providers [facility] Next Contact Date: 05/28/2019 Service Request Date: Service Type: Resolution: Reviewer: Comments: Last DP export: 05/28/19 4:56 p Patient Name: JAVIER PENNY Page [phone] at 1803 All edits/amendments must be made on the electronic document DICTATION DATE: 05/28/191801 CARBON CLEANER: RICHIE 05/28/191801 RPT#: [id number] DC DATE: STATUS: ADM IN [facility] [address] [place] [address] END OF REPORT
--- NOTE | 2019-05-28 19:28 | NUR ---
RECEIVED BEDSIDE REPORT. PATIENT IS ALERT AND ORIENTED, RESTING COMFORTABLY IN BED. RESPIRATIONS ARE EVEN AND UNLABORED. NO S/S OF DISTRESS. NO C/O PAIN. NEEDS MET. CALL LIGHT WITHIN REACH. WILL CPOC.
--- NOTE | 2019-05-29 | NUR ---
PATIENT RESTING COMFORTABLY IN BED. RESPIRATIONS ARE EVEN AND UNLABORED. NO S/S OF DISTRESS. NO C/O PAIN. CALL LIGHT WITHIN REACH. WILL CPOC.
[2019-05-29 06:51] LABS: BASOPHILS 0.2 % (0-2); EOSINOPHILS 1.9 % (0-7); HEMATOCRIT 41.2 % (42.0-54.0); HEMOGLOBIN 13.5 g/dL (13.5-17.5); IMMATURE GRANULOCYTES 0.2 % (0-5); LYMPHOCYTES 15.9 % (15-50); MCH 31.3 pg (26.0-34.0); MCHC 32.8 g/dL (31.0-37.0); MCV 95.4 fL (80.0-100.0); MONOCYTES 8.9 % (2-11); NEUTROPHILS 72.9 % (40-80); PLATELET COUNT 127 10x3/uL (130-400); RBC 4.32 10x6/uL (4.20-6.10); WBC 6.4 10x3/uL (4.8-10.8)
[2019-05-29 07:00] LABS: CALC OSMOLALITY 274 mosm/kg (275-300); CALCIUM 8.8 mg/dL (8.5-10.1); CARBON DIOXIDE 27.1 mmol/L (21.0-32.0); CHLORIDE - SERUM 105 mmol/L (98-107); CREATININE - SERUM 0.8 mg/dL (0.6-1.3); GLUCOSE 93 mg/dL (74-106); POTASSIUM - SERUM 3.4 mmol/L (3.5-5.1); SODIUM 138 mmol/L (136-145); UREA NITROGEN 10 mg/dL (7-18); eGFR NON AFRICAN AMERICAN > 90 mL/min (90-120)
--- NOTE | 2019-05-29 08:00 | NUR ---
ASSITED CHAIR FOR BREAKFAST. CHAIR ALARM ON. CALL LIGHT IN REACH. WILL MONITOR NEEDS.
[2019-05-29 11:50] VITALS: BP 131/70
--- NOTE | 2019-05-29 15:02 | MORECARE ---
CASE MANAGEMENT DISCHARGE SUMMARY PATIENT: JAVIER PENNY UNIT: [id number] ADM DATE: 05/26/19 AGE: 88 : 32 SEX: M ROOM/BED: D.2119 AUTHOR: GONZÁLEZ OLVERA PHYSICIAN: REFERRING PHYSICIAN: KEAGAN REYNA DO DATE OF SERVICE: 05/29/19 Discharge Plan Patient Name: JAVIER PENNY Facility: [facility]:[place] : 1930 Planned Disposition: Inpatient Rehab Anticipated Discharge Date: 05/29/19 Discharge Date: Expected LOS: 3 Initial Reviewer: [email or web address] Initial Review Date: 05/29/2019 Generated: 05/29/19 4:01 pm DCP- Discharge Planning Updated by [email or web address]: Kaushik Nguyễn on 05/29/19 1:[address] Patient Name: JAVIER PENNY Encounter No: [id number] : 1930 Primary Insurance: MEDICARE A & B Anticipated DC Date: 05-29-2019 Planned Disposition: Inpatient Rehab External Planned Provider: [facility] DCP follow-up note: CM RECEIVED CALL FROM [facility] OF INPATIENT REHAB, THEY WILL ACCEPT PT TODAY, ROOM 1113-A. CM CALLED AND NOTIFIED MADINA COTTO, , WHO IS IN AGREEMENT WITH DISCHARGE TO REHAB TODAY. SHE WILL NOTIFY HER SISTER SHEA. ORGAN RECOVERY COORDINATOR NURSE NOTIFIED. NURSE REPORT TO BE CALLED TO [facility], PT WILL ADMIT TO ROOM 1113-A. EMERY Maya DCP- Discharge Planning Updated by [email or web address]: Kaushik Nguyễn on 05/28/19 4:[address] Patient Name: JAVIER PENNY Admission Status: ER Accout number: [id number] Admission Date: 05-26-2019 : 1930 Admission Diagnosis: Attending: KEAGAN REYNA Current LOS: 2 Anticipated DC Date: 05-29-2019 Planned Disposition: Inpatient Rehab Primary Insurance: MEDICARE A & B PLANNED EXTERNAL PROVIDER: [facility] Discharge Planning Comments: CM RECEIVED ORDER FOR A WHEELCHAIR AND INPATIENT REHAB PRESCREENING. CM MET WITH PT IN ROOM TO DISCUSS NEEDS, PT REPORTS CM SHOULD SPEAK TO HIS GRAND DAUGHTERS. CM PROVIDED AND DISCUSSED IMPORTANT MESSAGE FROM MEDICARE. PT STATES WILLINGNESS FOR INPATIENT "DOWNSTAIRS". CHOICE COMPLETED. CM CALLED KRISTIN PENNY, , WHO DOES WANT WHEELCHAIR FOR DISCHARGE AND IS IN AGREEMENT WITH REHAB AT [facility]. CM SPOKE TO TANNER BLISS, , WHO IS ALSO IN AGREEMENT WITH ABOVE. CM FAXED ORDER FOR WHEELCHAIR TO [facility] AT [phone]. CM WAITING INPATIENT REHAB PRESCREEN RESULT FROM [facility]. Fishing Accessories Maker: Kaushik Nguyễn DCPIA - Discharge Planning Initial Assessment Updated by [email or web address]: Kaushik Nguyễn on 05/28/19 5:53 pm * Is the patient Alert and Oriented? No * How many steps to enter\\exit or inside your home? NONE * PCP DR. POTTER * Pharmacy [facility] * Preadmission Environment Home with Family * ADLs Partial Dependent * Partial ADLs (Assistance needed) Medication Management * Equipment Back Brace Shower Chair Walker * Other Equipment [employer] - MEDICAL EQUIPMENT PROVIDER PREFERNCE * List name and contact numbers for known caregivers / representatives who currently or will assist patient after discharge: KRISTIN PENNY, GRANDDAUGHTER, GRAND KATHIDAUGHER, * Verbal permission to speak to the caregivers and representatives has been obtained from the patient. N/A * Community resources currently utilized None * Please name any agencies selected above. NONE * Additional services required to return to the preadmission environment? Yes * Can the patient safely return to the preadmission environment? Yes * Has this patient been hospitalized within the prior 30 days at any hospital? No Last DP export: 05/28/19 5:03 p Patient Name: JAVIER PENNY Page 51263 at 1502 All edits/amendments must be made on the electronic document DICTATION DATE: 05/29/19 1501 MANAGER ACCOUNT MANAGEMENT: RICHIE 05/29/19 1501 RPT#: [id number] DC DATE: STATUS: ADM IN [facility] [address] [place] [address] END OF REPORT
--- NOTE | 2019-05-29 15:33 | NUR ---
REPORT CALLED TO REHAB NURSE. IV AND TELEMETRY DCD. TRANSPORTED BY W/C.
--- NOTE | 2019-05-31 16:48 | EC ---
PATIENT:JAVIER PENNY DATE OF SERVICE: 05/26/19 SEX: M MEDICAL RECORD: [id number] DATE OF : [birth year] LOCATION:D.M2 D.211 AGE OF PATIENT: 88 ADMISSION DATE: 05/26/19 REFERRING PHYSICIAN: INTERPRETING PHYSICIAN: KAL BURK MD ECHOCARDIOGRAM REPORT ECHO CHARGES 4 ECHO COMPLETE Date: 05/27/19 CLINICAL DIAGNOSIS: UNSTABLE ANGINA ECHOCARDIOGRAPHIC MEASUREMENTS (adult normal given) AC root (d.<3.7cm) 4.3 cm LV Septum d (<1.2 cm> 1.8 cm Valve Excursion 2.0 cm LV Septum (systole) 2.1 cm Left Atria (s.<4.0cm> 4.5 cm LVPW d(<1.2cm) 1.4 cm RV (d.<2.3cm) 3.1 cm LVPW (sytole) 2.0 cm LV diastole(<5.6CM) 5.5 cm MV E-F(>70mm/sec) cm LV systole 3.7 cm LVOT Diameter 2.1 cm MV exc.(>10mm) cm Est.ejection fraction (50-75%) % DOPPLER: LVIT cm/sec A 61.0 cm/sec E 53.0 cm/sec LA cm/sec RVSP 35.0 mmHg LVOT 73.0 cm/sec AOP1/2T m/s Asc. Ao 97.0 cm/sec RVOT 50.0 cm/sec RA cm/sec PA 78.0 cm/sec AV Gradient Peak 3.8 mmHg AV Mean 2.1 mmHg AV Area 2.8 cm MV Gradient Peak 1.9 mmHg MV Mean 0.96 mmHg MV Area cm COMMENTS: Expense Clerk: 1 MARY BETH PRIETOOE Stone Polisher Hand: 1 Dr. Burk TAPE# PACS Pericardial Effusion N DATE OF SERVICE: 05/27/2019 FINDINGS: 1. Left ventricular chamber size is within normal limits. Left ventricular systolic function is moderately depressed at 35%. 2. Left atrium is enlarged at 4.5 cm. Right atrium and right ventricle chamber sizes are within normal limits. 3. Valvular structures have normal structure and motion. 4. Doppler interrogation reveals trace mitral regurgitation, trace aortic insufficiency, mild tricuspid regurgitation. No other valvular insufficiency or ECHOCARDIOGRAM REPORT [id number] JAVIER PENNY stenosis. Pulmonary systolic pressure estimated at 35 mmHg. 5. No evidence of pericardial effusion or left ventricular thrombus. TRANSINT:[id number] Voice Confirmation ID: [id number] DOCUMENT ID: [id number] KAL BURK MD at 1648 CC: [id number] DICTATION DATE: 05/28/19 1338 FR[employer] EXPRESS AGENT: 05/28/19 2309 DIS IN 05/29/19 [place] [id number] [place] [id number]
== END 2019-05-29 15:34 | DRG 247 ==
LOC: D.ER 12:38 → D.M2 14:27
PROVIDERS: Family Medicine; ADMIT Family Medicine; ATTEND Family Medicine
PROC: 027135Z Dilation of Coronary Artery, Two Arteries with Two Drug-eluting Intraluminal Devices, Percutaneous Approach (ICD-10-PCS; principal; 2019-05-28)
PROC: 4A033BC Measurement of Arterial Pressure, Coronary, Percutaneous Approach (ICD-10-PCS; 2019-05-28)
PROC: 4A023N7 Measurement of Cardiac Sampling and Pressure, Left Heart, Percutaneous Approach (ICD-10-PCS; 2019-05-28)
PROC: B2111ZZ Fluoroscopy of Multiple Coronary Arteries using Low Osmolar Contrast (ICD-10-PCS; 2019-05-28)
PROC: B2151ZZ Fluoroscopy of Left Heart using Low Osmolar Contrast (ICD-10-PCS; 2019-05-28)
DX: I25.110 Atherosclerotic heart disease of native coronary artery with unstable angina pectoris (principal); I50.42 Chronic combined systolic (congestive) and diastolic (congestive) heart failure; N39.0 Urinary tract infection, site not specified; Z86.711 Personal history of pulmonary embolism; Z79.01 Long term (current) use of anticoagulants; I11.0 Hypertensive heart disease with heart failure; F03.90 Unspecified dementia, unspecified severity, without behavioral disturbance, psychotic disturbance, mood disturbance, and anxiety; G89.29 Other chronic pain; M54.9 Dorsalgia, unspecified; I48.91 Unspecified atrial fibrillation; Z95.0 Presence of cardiac pacemaker; Z86.73 Personal history of transient ischemic attack (TIA), and cerebral infarction without residual deficits; B96.5 Pseudomonas (aeruginosa) (mallei) (pseudomallei) as the cause of diseases classified elsewhere

== ENCOUNTER 2019-05-29 15:05 | Inpatient (IN) | payer MEDICARE, BC ==
[~2019-05-29] VITALS: Ht 182.9 cm; Wt 83.5 kg
[~2019-05-29 15:05] MED LIST changes: +LEVOFLOXACIN500 MG PO
--- NOTE | 2019-05-29 15:48 | NUR ---
PATIENT ADMITTED TO REHAB FROM ACUTE FLOOR. HIS PCP IS DR. POTTER. DME AT HOME IS A WALKER, SHOWER CHAIR AND CM FROM ACUTE FLOOR HAS SENT AN ORDER TO [facility] FOR A WHEELCHAIR. WILL CONTINUE TO FOLLOW WITH PATIENT.
[2019-05-29 17:59] VITALS: BP 134/88; BMI 25.0
--- NOTE | 2019-05-29 19:00 | NUR ---
BEDSIDE REPORT COMPLETE. PT SITTING UP IN BED ASSISTED TO RESTROOM WITH MIN ASSIST. DENIES ANY PAIN. ALERT AND ORIENTED X4. INSTRUCTED PT TO PULL CORD WHEN DONE. PT VERBALIZED UNDERSTANDING. WILL CONTINUE TO MONITOR
[2019-05-29 21:04] VITALS: BP 134/88
--- NOTE | 2019-05-30 00:44 | NUR ---
PT LYING IN BED ON LEFT SIDE EYES CLOSED RESTING. RR EVEN AND UNLABORED. CL IN REACH
--- NOTE | 2019-05-30 03:59 | NUR ---
PT LYING IN BED SUPINE HOB 45 DEGREES, EYES CLOSED RESTING. RR EVEN AND UNLABORED. CL IN REACH
[2019-05-30 06:20] LABS: BASOPHILS 0.3 % (0-2); EOSINOPHILS 2.3 % (0-7); HEMATOCRIT 43.8 % (42.0-54.0); HEMOGLOBIN 14.8 g/dL (13.5-17.5); IMMATURE GRANULOCYTES 0.2 % (0-5); LYMPHOCYTES 18.9 % (15-50); MCH 32.1 pg (26.0-34.0); MCHC 33.8 g/dL (31.0-37.0); MEAN PLATELET VOLUME 10.9 fL (7.4-10.4); MONOCYTES 10.4 % (2-11); NEUTROPHILS 67.9 % (40-80); RBC 4.61 10x6/uL (4.20-6.10); RDW 12.7 % (11.5-14.5); WBC 6.5 10x3/uL (4.8-10.8)
[2019-05-30 06:23] LABS: PLATELET COUNT 166 10x3/uL (130-400)
[2019-05-30 06:47] LABS: CALC OSMOLALITY 277 mosm/kg (275-300); CALCIUM 9.2 mg/dL (8.5-10.1); CARBON DIOXIDE 27.5 mmol/L (21.0-32.0); CHLORIDE - SERUM 103 mmol/L (98-107); CREATININE - SERUM 0.9 mg/dL (0.6-1.3); GLUCOSE 114 mg/dL (74-106); POTASSIUM - SERUM 3.3 mmol/L (3.5-5.1); SODIUM 139 mmol/L (136-145); UREA NITROGEN 10 mg/dL (7-18); eGFR NON AFRICAN AMERICAN 85 mL/min (90-120)
[2019-05-30 07:57] VITALS: BP 123/85
[2019-05-30 14:04] VITALS: Ht 182.9 cm; Wt 83.5 kg
--- NOTE | 2019-05-30 18:38 | NUR ---
BEDSIDE REPORT COMPLETE. PT SITTING UP IN BED VISITING WITH FRIENDS. DENIES ANY NEEDS OR PAIN. NO SIGNS OF ACUTE DISTRESS NOTED. CL IN REACH. FALL PRECAUTIONS IN PLACE. WILL CONTINUE TO MONITOR
[2019-05-30 22:06] VITALS: BP 138/84
--- NOTE | 2019-05-31 02:02 | NUR ---
PT LYING IN BED EYES CLOSED RESTING. RR EVEN AND UNLABORED. CL IN REACH
--- NOTE | 2019-05-31 04:37 | NUR ---
PT LYING IN BED SUPINE, HOB 30 DEGREES, EYES CLOSED RESTING. RR EVEN AND UNLABORED. CL IN REACH
--- NOTE | 2019-05-31 07:23 | NUR ---
PT RESTING IN BED WITH EYES OPEN CALL LIGHT IN REACH WILL MONITER
[2019-05-31 08:00] VITALS: BP 131/71
--- NOTE | 2019-05-31 08:00 | NUR ---
shift assmt completed.cl in reach.
--- NOTE | 2019-05-31 12:00 | NUR ---
SITTING ON SIDE OF BED EATING LUNCH.
--- NOTE | 2019-05-31 16:35 | NUR ---
CARE TEAM MEETING: CANDIE FLORES PROGRESSING IN THERAPY AND AT DISCHARGE PATIENT WILL DISCHARGE TO [facility] PER FAMILY REQUEST. WILL CONTINUE TO FOLLOW WITH PATIENT.
[2019-05-31 19:00] VITALS: BP 120/80
--- NOTE | 2019-05-31 19:29 | NUR ---
GREETED PATIENT AND INTRODUCED MYSELF HIS NURSE PATIENT IS LAYING IN BED AT THIS TIME RESTING. RESPIRATIONS EVEN. NO S/S OF DISTRESS. DENIES ANY NEEDS AT THIS TIME. BEDSIDE REPORT COMPLETE FROM OFFGOING NURSE. CALL LIGHT IN REACH.
--- NOTE | 2019-06-01 01:43 | NUR ---
PT. RESTING QUIETLY WITH EYES CLOSED. RESPIRATIONS EVEN. NO S/S OF DISTRESS. CALL LIGHT IN REACH.
--- NOTE | 2019-06-01 04:37 | NUR ---
PT. RESTING QUIETLY WITH EYES CLOSED. RESPIRATIONS EVEN. NO S/S OF DISTRESS. CALL LIGHT IN REACH.
[2019-06-01 07:25] LABS: BASOPHILS 0.5 % (0-2); EOSINOPHILS 2.5 % (0-7); HEMATOCRIT 45.5 % (42.0-54.0); HEMOGLOBIN 15.3 g/dL (13.5-17.5); IMMATURE GRANULOCYTES 0.3 % (0-5); MCH 31.9 pg (26.0-34.0); MCHC 33.6 g/dL (31.0-37.0); MEAN PLATELET VOLUME 10.5 fL (7.4-10.4); NEUTROPHILS 64.7 % (40-80); PLATELET COUNT 191 10x3/uL (130-400); RBC 4.79 10x6/uL (4.20-6.10); RDW 12.9 % (11.5-14.5); WBC 6.4 10x3/uL (4.8-10.8)
[2019-06-01 07:33] LABS: CALC OSMOLALITY 278 mosm/kg (275-300); CALCIUM 9.3 mg/dL (8.5-10.1); CARBON DIOXIDE 26.1 mmol/L (21.0-32.0); CHLORIDE - SERUM 104 mmol/L (98-107); CREATININE - SERUM 0.9 mg/dL (0.6-1.3); GLUCOSE 113 mg/dL (74-106); POTASSIUM - SERUM 3.5 mmol/L (3.5-5.1); SODIUM 139 mmol/L (136-145); UREA NITROGEN 12 mg/dL (7-18); eGFR NON AFRICAN AMERICAN 85 mL/min (90-120)
--- NOTE | 2019-06-01 09:49 | NUR ---
PT AM MEDS ADMINISTERED. PT ADONAY RAMEY. AIDEE.
[2019-06-01 11:25] VITALS: BP 128/57
--- NOTE | 2019-06-01 18:37 | NUR ---
PT RESTING IN BED, DENIES NEEDS. WCTM.
--- NOTE | 2019-06-01 21:33 | NUR ---
PATIENT RECEIVED SITTING UP IN BED WATCHING TV. ASSESSMENT & VITAL SIGNS DONE. NO C/O PAIN OR DISTRESS AT THIS TIME. BED LOW. ALARM ON. CALL LIGHT WITHIN REACH. WILL CONTINUE TO MONITOR.
--- NOTE | 2019-06-02 02:50 | NUR ---
PATIENT EYES CLOSED. RESPIRATIONS 18 & EVEN. BED LOW. ALARM ON. CALL LIGHT WITHIN REACH. WILL CONTINUE TO MONITOR.
--- NOTE | 2019-06-02 05:39 | NUR ---
PATIENT REQUEST THAT ALL 3 EYE DROPS TO BE APPLIED TO RIGHT EYE ONLY. EYE DROPS CHANGED TO RIGHT EYE ONLY. SUBMITTED TO PHARMACY.
--- NOTE | 2019-06-02 06:06 | NUR ---
I have reviewed this patient and I concur with the Shift Assessment completed by the Licensed Practical Nurse today this shift.
--- NOTE | 2019-06-02 07:56 | NUR ---
PT RESTING IN BED WITH EYES OPEN CALL LIGHT IN REACH WILL MONITER
--- NOTE | 2019-06-02 16:30 | NUR ---
PT UP IN WHEELCHAIR IN ROOM WATCHING TV CALL LIGHT IN REACH WILL MONITER
--- NOTE | 2019-06-02 19:22 | NUR ---
PT SITTING UP IN WHEELCHAIR. SON IN ROOM. DENIES NEEDS OR PAIN AT THIS TIME. RESP EVEN AND UNALBORED. A/OX 4. LUNGS CEAR. BOWEL ACTIVE X4. MIN ASSIST. WILL CONTINUE TO MONITOR.
[2019-06-02 20:00] VITALS: BP 129/69
--- NOTE | 2019-06-03 01:34 | NUR ---
I have reviewed this patient and I concur with the Shift Assessment completed by the Licensed Practical Nurse today this shift.
--- NOTE | 2019-06-03 08:00 | NUR ---
PT RESTING IN BED WITH EYES OPEN CALL LIGHT IN REACH WILL MONITER
--- NOTE | 2019-06-03 17:45 | NUR ---
PT RESTING IN BED WITH EYES OPEN CALL LIGHT IN REACH WILL MONITER
--- NOTE | 2019-06-03 19:20 | NUR ---
PT SITTING UP IN WHEELCHAIR. CL IN REACH. VISITOR IN ROOM. DENIES NEEDS OR PAIN AT THIS TIME. A/O X4. LUNGS CLEAR. BOWEL ACTIVE X4. RESP EVEN AND UNLABORED. WILL CONTINUE TO MONITOR.
[2019-06-03 20:00] VITALS: BP 124/76
--- NOTE | 2019-06-04 03:24 | NUR ---
I have reviewed this patient and I concur with the Shift Assessment completed by the Licensed Practical Nurse today this shift.
[2019-06-04 06:50] LABS: CALC OSMOLALITY 278 mosm/kg (275-300); CALCIUM 9.1 mg/dL (8.5-10.1); CARBON DIOXIDE 30.3 mmol/L (21.0-32.0); CHLORIDE - SERUM 105 mmol/L (98-107); CREATININE - SERUM 0.9 mg/dL (0.6-1.3); GLUCOSE 97 mg/dL (74-106); POTASSIUM - SERUM 3.8 mmol/L (3.5-5.1); SODIUM 140 mmol/L (136-145); UREA NITROGEN 13 mg/dL (7-18); eGFR NON AFRICAN AMERICAN 85 mL/min (90-120)
[2019-06-04 06:54] LABS: BASOPHILS 0.4 % (0-2); EOSINOPHILS 3.1 % (0-7); HEMATOCRIT 44.7 % (42.0-54.0); HEMOGLOBIN 14.7 g/dL (13.5-17.5); IMMATURE GRANULOCYTES 0.6 % (0-5); LYMPHOCYTES 33.7 % (15-50); MCH 31.5 pg (26.0-34.0); MCHC 32.9 g/dL (31.0-37.0); MCV 95.7 fL (80.0-100.0); MEAN PLATELET VOLUME 10.4 fL (7.4-10.4); MONOCYTES 9.6 % (2-11); NEUTROPHILS 52.6 % (40-80); PLATELET COUNT 200 10x3/uL (130-400); RBC 4.67 10x6/uL (4.20-6.10); WBC 5.4 10x3/uL (4.8-10.8)
--- NOTE | 2019-06-04 07:34 | NUR ---
ALERT AND ORIENTED. NO DISTRESS NOTED. RESP EVEN AND UNLABORED. ASSISTED TO BR IN WC. MIN ASSISST TO TRANSFER.
[2019-06-04 09:48] VITALS: BP 126/72
--- NOTE | 2019-06-04 14:35 | NUR ---
Nutrition Follow-up: Diet: Cardiac PO intake: 100% x all; reports good appetite Last BM: 06/04/19 x 2. WT: 184# (05/30/19) Meds noted: lasix. Labs noted. Recommend continue current diet. RD following.
--- NOTE | 2019-06-04 14:57 | NUR ---
SITTING IN WC IN ROOM. NO DISTRESS NOTED. RESP EVEN AND UNLABORED. CL IN REACH.
--- NOTE | 2019-06-04 16:47 | RHP ---
PATIENT: JAVIER PENNY MEDICAL RECORD: [id number] ACCOUNT: [id number] LOCATION:[facility] : [birth year] ADMISSION DATE: 05/29/19 REHABILITATION HISTORY AND PHYSICAL EXAMINATION POST ADMISSION PHYSICIAN EXAMINATION POST ADMISSION PHYSICAL EXAMINATION AND HISTORY AND PHYSICAL DATE OF ADMISSION: 05/29/2018. ADMITTING DIAGNOSIS: Disuse myopathy. HISTORY OF PRESENT ILLNESS: The patient is an 88-year-old gentleman, who presented to the ED with complaints of chest pain. Family members said he had shortness of breath, weakness, back pain, and abdominal distention. They requested admission for having him checked. He has been in the ED for similar complaints of weakness, tired, shortness of breath. Had pacemaker adjustments done the week before. The patient had a past medical history of pacemaker placement, Alzheimer's, kidney disease, prostate problems, gastroesophageal reflux disease, coronary artery disease with stenting, pacemaker placement, TIA. He was on Eliquis for his atrial fib, chronic anticoagulation, prostate cancer, history of colon cancer, back pain, depression, and dementia. He had associated dyspnea on exertion, weakness, back pain, and abdominal distention. He was seen by cardiology. He was taken to the laborer concrete paving and had a stent placed. He has been receiving PT during his stay. He had a stent placed on May 28 and was on telemetry, he needs to be monitored, he is closely monitored on his lab values. He has proximal muscle weakness, balance deficits, decreased activity tolerance, decreased range of motion, decreased strength, gait disturbance, limited safety awareness, medical complexity, risk for falls. He has got low endurance, unsteady gait and balance, fatigues easily, and has inability to care for himself and self-care deficits. These are all barriers to his discharge home. He apparently lives with his granddaughter and her spouse, and they assist him with shopping and ADLs if needed. He was independent with his ADLs and mobility prior to this, using a rolling walker. Currently set up for max assist with his ADLs, mod-to-max assist for mobility. He is only ambulating 10 feet at this time, but is unsteady with his gait and standing. He recently was in our rehab unit and did well. Hopefully, he will be discharged back home at his prior level of functioning. Comorbidities in this patient include unstable angina, UTI, got a history of anemia, electrolyte abnormalities, chronic anticoagulation, atrial fib, coronary artery disease, systolic and diastolic heart failure, valvular disease, dementia, prostate cancer, and colon cancer. PAST MEDICAL HISTORY: Significant for pacemaker placement, coronary artery disease, CHF, history of TIAs, AFib, PE, prostate cancer, Alzheimer's, kidney stones, gastroesophageal reflux disease. PAST SURGICAL HISTORY: Includes colon surgery, hernia repair, appendectomy, pacemaker placement, and shoulder surgery. ALLERGIES: TETANUS, PERCOCET, AND KEFLEX. CURRENT MEDICATIONS: Include Floranex 1 cap daily. He is on Levaquin 500 mg daily. He is on furosemide 40 mg daily, Lexapro 10 mg daily, B12 at 2500 mcg daily, Plavix 75 mg daily, aspirin chewable 81 mg daily, Norvasc 5 mg daily, Protonix 40 mg daily, Alphagan eyedrops 1 drop b.i.d., Requip 0.25 mg at HISTORY AND PHYSICAL [id number] JAVIER PENNY bedtime, Rythmol 150 mg b.i.d. He is on Pred Forte eyedrops t.i.d., potassium chloride 10 mEq b.i.d., nystatin powder. He is on Namenda 5 mg b.i.d., [place] 5/325 one tab b.i.d. He is on Eliquis 5 mg b.i.d., Nitrostat 0.4 mg every 5 minutes p.r.n., and lorazepam 1 mg b.i.d. p.r.n. HABITS: No alcohol or tobacco use. FAMILY HISTORY: Noncontributory. SOCIAL HISTORY: The patient hopes to return back home and get back to his prior level of functioning. REVIEW OF SYSTEMS: GENERAL: Does complain of weakness and fatigue. HEENT: Denies cold, cough, or congestion. CARDIOVASCULAR: Denies any chest pain. PHYSICAL EXAMINATION: VITAL SIGNS: Stable, afebrile. GENERAL: Elderly gentleman, in no acute distress upon exam. HEENT: Normocephalic and atraumatic. Mucosa moist. NECK: Supple. No lymphadenopathy. LUNGS: Clear in the upper khanna. No wheeze, rhonchi, or rales. HEART: Irregular rate and rhythm. No murmurs, rubs, or gallops. ABDOMEN: Soft, benign, and nondistended. Positive bowel sounds times 4. EXTREMITIES: No clubbing, cyanosis or edema. NEUROLOGIC: He does have 2/5 muscular strength in his proximal muscles of his thighs. His gait is somewhat unsteady, and balance is not very good. LABORATORY DATA: White count 6.5, H&H of 14 and 43, and platelet count was noted to be 166. Sodium 139, potassium 3.3, BUN and creatinine of 10 and 0.9, blood sugar is noted to be 114. ASSESSMENT: This is an 88-year-old gentleman admitted to the rehab with a working diagnosis of disuse myopathy. The patient has potential to make improvement. We will institute the following multidisciplinary actions including, but not limited to, physical, occupational, respiratory, speech, nutritional services, prosthetics, and orthotics. Given his complex medical condition and risks for more complications, rehabilitation services cannot be provided at a lower level of care such as a skilled nurse facility. PLAN: 1. Admit to [facility] for an inpatient therapy to include the following disciplines; A. Physical therapy to improve gait, all transfer skills, and bed mobility to modified independent level. B. Occupational therapy to improve activities of daily living. C. Case management to assist with discharge planning and placement options. D. Nutrition to assist with nutritional needs. E. Rehabilitation nursing to assist in monitoring the patient's underlying medical conditions and to assist with any type of bowel or bladder management. 2. The patient's current medications and medical care will be continued. 3. The patient will be placed on standard fall precautions. 4. The patient's estimated length of stay is approximately 7-10 days. 5. We will discuss the patient during care team staff meeting this week. HISTORY AND PHYSICAL [id number] JAVIER PENNY TRANSINT:[id number] Voice Confirmation ID: [id number] DOCUMENT ID: [id number] JESUSITA notes whether there has been none or any medical/functional change since admission: - No change since prescreen. JESUSITA attests patient continues to be appropriate for IRF: - Continues to be appropriate. DRISS TORREZ MD at 1647 CC: [id number] DICTATION DATE: 05/30/19833 HOSPICE ADMITTING CLERK: 05/30/19 09 ADM IN [place] [id number] [facility] [place] [address]
--- NOTE | 2019-06-04 17:12 | NUR ---
NO CHANGE IN ASSESSMENT. SITTING IN WC. NO C/O PAIN. CL IN REACH.
--- NOTE | 2019-06-04 20:00 | NUR ---
PATIENT RECEIVED SITTING UP IN BED. ASSESSMENT & VITAL SIGNS DONE. NO C/O PAIN OR ASSESSMENT. FRIEND AT BEDSIDE. PATIENT REQUEST FOR SHOWER TONIGHT. ON LIST FOR TOMORROW. THIS NURSE TOLD PATIENT "I WILL GIVE YOU YOUR SHOWER." PATIENT BED LOW. CALL LIGHT WITHIN REACH. ALARM ON. WILL CONTINUE TO MONITOR.
[2019-06-04 20:41] VITALS: BP 110/53
--- NOTE | 2019-06-04 21:35 | NUR ---
PATIENT TAKEN INTO SHOWER. PATIENT WASHED HIS BODY. THIS NURSE HELPED PATIENT TO DRY OFF & PUT ON HIS CLEAN BRIEF & CLOTHES. PATIENT APPLIED HIS DEODORANT. THIS NURSE TOOK OFF DIRTY LINENS & PLACED CLEAN LINEN ON BED. PATIENT RETURNED TO BED. BED LOW. ALARM ON. CALL LIGHT WITHIN REACH. WILL CONTINUE TO MONITOR.
--- NOTE | 2019-06-05 01:12 | NUR ---
I have reviewed this patient and I concur with the Shift Assessment completed by the Licensed Practical Nurse today this shift.
--- NOTE | 2019-06-05 03:07 | NUR ---
PATIENT EYES CLOSED. RESPIRATIONS 18 & EVEN. BED LOW. ALARM ON. CALL LIGHT WITHIN REACH. WILL CONTINUE TO MONITOR.
--- NOTE | 2019-06-05 03:14 | NUR ---
PATIENT USED CALL LIGHT FOR ASSIST TO BATHROOM. PATIENT HAD VOID & BM. PATIENT RETURNED TO BED VIA WHEELCHAIR. CALL LIGHT WITHIN REACH. ALARM ON. WILL CONTINUE TO MONITOR
--- NOTE | 2019-06-05 11:08 | NUR ---
I have reviewed this patient and I concur with the Shift Assessment completed by the Licensed Practical Nurse today this shift.
[2019-06-05 15:02] VITALS: BP 148/81
--- NOTE | 2019-06-05 16:36 | NUR ---
PT RESTING IN B3ED WITH EYES OPEN CALL LIGHT IN REACH WILL MONITER
--- NOTE | 2019-06-05 19:45 | NUR ---
PATIENT RECEIVED SITTING UP IN BED WATCHING TV. ASSESSMENT & VITAL SIGNS DONE. NO C/O PAIN OR DISTRESS. BED LOW. ALARM ON. CALL LIGHT WITHIN REACH. WILL CONTINUE TO MONITOR.
[2019-06-05 22:52] VITALS: BP 130/80
[2019-06-06 00:07] VITALS: BP 130/80
--- NOTE | 2019-06-06 03:45 | NUR ---
PATIENT EYES CLOSED. RESPIRATIONS 18 & EVEN. BED LOW. ALARM ON. CALL LIGHT WITHIN REACH. WILL CONTINUE TO MONITOR.
--- NOTE | 2019-06-06 07:55 | NUR ---
PT RESTING IN BED WITH EYES OPEN CALL LIGHT IN REACH WILL MONITER
[2019-06-06 08:54] LABS: BASOPHILS 0.3 % (0-2); EOSINOPHILS 2.2 % (0-7); HEMATOCRIT 45.2 % (42.0-54.0); HEMOGLOBIN 15.1 g/dL (13.5-17.5); IMMATURE GRANULOCYTES 0.3 % (0-5); LYMPHOCYTES 29.1 % (15-50); MCH 32.2 pg (26.0-34.0); MCHC 33.4 g/dL (31.0-37.0); MCV 96.4 fL (80.0-100.0); MEAN PLATELET VOLUME 10.7 fL (7.4-10.4); MONOCYTES 8.5 % (2-11); NEUTROPHILS 59.6 % (40-80); PLATELET COUNT 215 10x3/uL (130-400); RBC 4.69 10x6/uL (4.20-6.10); RDW 13.2 % (11.5-14.5)
[2019-06-06 09:08] LABS: CALC OSMOLALITY 278 mosm/kg (275-300); CALCIUM 8.7 mg/dL (8.5-10.1); CARBON DIOXIDE 29.2 mmol/L (21.0-32.0); CHLORIDE - SERUM 103 mmol/L (98-107); CREATININE - SERUM 0.9 mg/dL (0.6-1.3); GLUCOSE 91 mg/dL (74-106); POTASSIUM - SERUM 3.8 mmol/L (3.5-5.1); SODIUM 139 mmol/L (136-145); UREA NITROGEN 14 mg/dL (7-18); eGFR NON AFRICAN AMERICAN 85 mL/min (90-120)
[2019-06-06 09:36] VITALS: BP 137/74
--- NOTE | 2019-06-06 12:00 | NUR ---
I have reviewed this patient and I concur with the Shift Assessment completed by the Licensed Practical Nurse today this shift.
--- NOTE | 2019-06-06 16:15 | NUR ---
CARE TEAM MEETING: PATIENT FAMILY ATTENDED THE MEETING. QUESTIONS AND CONCERNS WERE ADDRESSED. AT DISCHARGE PATIENT WILL DISCHARGE HOME WITH [facility]. WILL CONTINUE TO FOLLOW WITH PATIENT.
--- NOTE | 2019-06-06 18:50 | NUR ---
BEDSIDE REPORT COMPLETE. PT SITTING UP IN W/C VISITING WITH FAMILY. DENIES ANY NEEDS OR PAIN. RR EVEN AND UNLABORED. CL IN REACH. FALL PRECAUTIONS IN PLACE. WILL CONTINUE TO MONITOR
[2019-06-06 20:53] VITALS: BP 140/80
[2019-06-06 21:20] VITALS: BP 140/82
--- NOTE | 2019-06-07 01:21 | NUR ---
PT LYING IN BED ON LEFT SIDE EYES CLOSED RESTING. RR EVEN AND UNLABORED. CL IN REACH
--- NOTE | 2019-06-07 04:31 | NUR ---
PT LYING IN BED ON LEFT SIDE EYES CLOSED RESTING COMFORTABLY. RR EVEN AND UNLABORED. CL IN REACH
--- NOTE | 2019-06-07 07:30 | NUR ---
POSITIONED IN BED ON RIGHT SIDE. EYES CLOSED AND RESP EVEN AND UNLABORED. SIDERAILS UP X 2, CALL LIGHT IN REACH AND BED IN LOW LOCKED POSITION. NO APPARENT PROBLEMS AT PRESENT TIME. WILL CPOC.
[2019-06-07 09:21] VITALS: BP 121/76
--- NOTE | 2019-06-07 18:42 | NUR ---
BEDSIDE REPORT COMPLETE. PT SITTING UP IN W/C VISITING WITH FAMILY. DENIES ANY NEEDS OR PAIN. NO SIGNS OF ACUTE DISTRESS NOTED. CL IN REACH. FALL PRECAUTIONS IN PLACE. WILL CONTINUE TO MONITOR
[2019-06-07 20:14] VITALS: BP 117/75
--- NOTE | 2019-06-07 23:35 | NUR ---
PT LYING IN BED EYES CLOSED RESTING. RR EVEN AND UNLABORED. CL IN REACH
--- NOTE | 2019-06-08 03:58 | NUR ---
PT LYING IN BED SUPINE EYES CLOSED RESTING. RR EVEN AND UNLABORED. CL IN REACH
[2019-06-08 07:47] LABS: BASOPHILS 0.3 % (0-2); EOSINOPHILS 1.7 % (0-7); HEMATOCRIT 46.4 % (42.0-54.0); HEMOGLOBIN 15.2 g/dL (13.5-17.5); IMMATURE GRANULOCYTES 0.2 % (0-5); LYMPHOCYTES 24.1 % (15-50); MCH 31.6 pg (26.0-34.0); MCHC 32.8 g/dL (31.0-37.0); MCV 96.5 fL (80.0-100.0); MEAN PLATELET VOLUME 10.6 fL (7.4-10.4); MONOCYTES 7.3 % (2-11); NEUTROPHILS 66.4 % (40-80); PLATELET COUNT 197 10x3/uL (130-400); RBC 4.81 10x6/uL (4.20-6.10); RDW 13.1 % (11.5-14.5); WBC 5.9 10x3/uL (4.8-10.8)
--- NOTE | 2019-06-08 08:00 | NUR ---
PT RESTING IN BED WITH EYES OPEN CALL LIGHT IN REACH WILL MONITER
[2019-06-08 08:09] LABS: CALC OSMOLALITY 278 mosm/kg (275-300); CARBON DIOXIDE 27.5 mmol/L (21.0-32.0); CHLORIDE - SERUM 105 mmol/L (98-107); CREATININE - SERUM 0.9 mg/dL (0.6-1.3); GLUCOSE 115 mg/dL (74-106); POTASSIUM - SERUM 3.9 mmol/L (3.5-5.1); SODIUM 139 mmol/L (136-145); UREA NITROGEN 13 mg/dL (7-18); eGFR NON AFRICAN AMERICAN 85 mL/min (90-120)
[2019-06-08 09:52] VITALS: BP 141/51
--- NOTE | 2019-06-08 18:18 | NUR ---
PT UP IN W/C AT BEDSIDE CALL LIGHT IN REACH NO PROBLEMS WILL MONITER
--- NOTE | 2019-06-08 18:44 | NUR ---
BEDSIDE REPORT COMPLETE. PT SITTING UP IN BED WATCHING TV. DENIES ANY NEEDS OR PAIN. RR EVEN AND UNLABORED. CL IN REACH. FALL PRECAUTIONS IN PLACE. WILL CONTINUE TO MONITOR
--- NOTE | 2019-06-08 22:30 | NUR ---
PT IN BED MEDS GIVEN, ZHANNA APLIED TO SCROTUM, FRESH WATER GIVEN, ICE CREAM REQUESTED AND GIVEN, NO OTHER NEEDS NOTED
--- NOTE | 2019-06-09 02:06 | NUR ---
PT LYING IN BED ON LEFT SIDE EYES CLOSED RESTING. NO SIGNS OF ACUTE DISTRESS. CL IN REACH
[2019-06-09 02:18] VITALS: BP 136/84
--- NOTE | 2019-06-09 05:02 | NUR ---
PT IN BED SLEEPING, FALL PRECAUTIONS IN PLACE, NO NEEDS NOTED
--- NOTE | 2019-06-09 07:30 | NUR ---
RECEIVED IN BED POSITIONED ON RIGHT SIDE WITH EYES CLOSED AND RESP EVEN AND UNLABORED. SIDERAILS UP X 2, BED IN LOWEST POSITION AND CALL LIGHT WITHIN REACH. NO APPARENT PROBLEMS NOTED. WILL CONTINUE POC.
[2019-06-09 08:15] VITALS: BP 119/77
--- NOTE | 2019-06-09 12:00 | NUR ---
I have reviewed this patient and I concur with the Shift Assessment completed by the Licensed Practical Nurse today this shift.
--- NOTE | 2019-06-09 13:30 | NUR ---
ASSISTED UP TO SHOWER AND PT DID BATHING HIMSELF. TOLERATED WELL. ASSISTED BACK TO BEDSIDE AND UP IN W/C. NO REQUESTS.
--- NOTE | 2019-06-09 19:10 | NUR ---
GREETED PATIENT AND INTRODUCED MYSELF HIS NURSE. PATIENT IS SITTING IN WHEELCHAIR AT THIS TIME VISITING WITH FAMILY MEMBERS. RESPIRATIONS EVEN. NO S/S OF DISTRESS. CALL LIGHT IN REACH. DENIES ANY NEEDS AT THIS TIME.
[2019-06-09 20:13] VITALS: BP 89/62
--- NOTE | 2019-06-10 03:28 | NUR ---
PT. RESTING QUIETLY WITH EYES CLOSED. RESPIRATIONS EVEN. NO S/S OF DISTRESS. CALL LIGHT IN REACH.
--- NOTE | 2019-06-10 07:15 | NUR ---
POSITIONED ON RIGHT SIDE WITH EYES CLOSED. RESP EVEN AND UNLABORED WITH NO APPARENT PROBLEMS AT THIS TIME. BED RAILS UP X 2, CALL LIGHT IN REACH AND BED IN LOW LOCKED POSITION.
[2019-06-10 12:17] VITALS: BP 125/76
--- NOTE | 2019-06-10 14:15 | NUR ---
I have reviewed this patient and I concur with the Shift Assessment completed by the Licensed Practical Nurse today this shift.
--- NOTE | 2019-06-10 19:25 | NUR ---
GREETED PATIENT AND INTRODUCED MYSELF HIS NURSE. PATIENT IS SITTING IN WHEELCHAIR WATCHING TV. RESPIRATIONS EVEN. NO S/S DISTRESS. CALL LIGHT IN REACH.
[2019-06-10 19:41] VITALS: BP 131/72
--- NOTE | 2019-06-11 03:42 | NUR ---
PT RESTING QUIETLY WITH EYES CLOSED. RESPIRATIONS EVEN. NO S/S OF DISTRESS. CALL LIGHT IN REACH.
[2019-06-11 07:02] LABS: BASOPHILS 0.4 % (0-2); EOSINOPHILS 2.5 % (0-7); HEMATOCRIT 45.4 % (42.0-54.0); HEMOGLOBIN 14.9 g/dL (13.5-17.5); IMMATURE GRANULOCYTES 0.4 % (0-5); MCH 31.6 pg (26.0-34.0); MCHC 32.8 g/dL (31.0-37.0); MCV 96.2 fL (80.0-100.0); MEAN PLATELET VOLUME 11.1 fL (7.4-10.4); MONOCYTES 10.5 % (2-11); NEUTROPHILS 60.2 % (40-80); PLATELET COUNT 174 10x3/uL (130-400); RBC 4.72 10x6/uL (4.20-6.10); RDW 13.3 % (11.5-14.5); WBC 5.5 10x3/uL (4.8-10.8)
--- NOTE | 2019-06-11 07:51 | NUR ---
ALERT AND ORIENTED. EATING BREAKFAST IN THERAPY GYM. NO C/O PAIN.
[2019-06-11 08:00] VITALS: BP 139/79
[2019-06-11 08:48] LABS: CALC OSMOLALITY 276 mosm/kg (275-300); CALCIUM 8.7 mg/dL (8.5-10.1); CHLORIDE - SERUM 105 mmol/L (98-107); CREATININE - SERUM 0.8 mg/dL (0.6-1.3); GLUCOSE 97 mg/dL (74-106); POTASSIUM - SERUM 3.7 mmol/L (3.5-5.1); SODIUM 138 mmol/L (136-145); UREA NITROGEN 14 mg/dL (7-18); eGFR NON AFRICAN AMERICAN > 90 mL/min (90-120)
--- NOTE | 2019-06-11 11:01 | NUR ---
Nutrition Follow-up: Diet: Cardiac PO intake: 100% Last BM: 06/10/19 x 20. WT: 184# (05/30/19), no new WT Meds noted: Melba vu. Labs reviewed. Recommend continue current diet. RD following.
--- NOTE | 2019-06-11 12:16 | NUR ---
PARTICIPATED IN THERAPY TODAY. EATING LUNCH AT THIS TIME.
--- NOTE | 2019-06-11 15:17 | NUR ---
RESTING IN BED WO DISTRESS. NO CHANGE IN ASSESSMENT. CL IN REACH.
--- NOTE | 2019-06-11 19:18 | NUR ---
PT SITTING UP IN WHEELCHAIR. CL IN REACH. DENIES NEEDS OR PAIN AT THIS TIME. BED IN LOW SIDE RAILS X2. A/O X4. LUNGS CLEAR. BOWEL ACTIVE X4. RESP EVEN AND UNLABORED. WILL CONTINUE OT MONITOR.
[2019-06-11 20:00] VITALS: BP 132/58
--- NOTE | 2019-06-12 02:24 | NUR ---
I have reviewed this patient and I concur with the Shift Assessment completed by the Licensed Practical Nurse today this shift.
--- NOTE | 2019-06-12 07:30 | NUR ---
A/A/OX4. SITTING UP ON SIDE OF BED AND STATES HE IS GOING HOME TODAY AND IS HAPPY ABOUT IT. DENIES ANY PAIN OR DISCOMFORT AND NO REQUESTS VOICED. SIDERAILS UP X 2, CALL LIGHT IN REACH AND BED IN LOW LOCKED POSITION. NO APPARENT PROBLEMS AT THIS TIME.
[2019-06-12 08:03] VITALS: BP 133/83
--- NOTE | 2019-06-12 11:01 | NUR ---
PATIENT DISCHARGING HOME WITH FAMILY TODAY. AN ORDER FOR [facility] TO [facility] HAS BEEN FAXED. PATIENT CHOICE FORM DECLINING HOME HEALTH AND [facility] FORMS SIGNED, EXPLAINED AND GIVEN TO PATIENT AND FILED IN CHART. DR. MENDOZA/GEMA BROWN 06/26/2019 @ 9:00. PATIENT FAMILY INSTRUCTED TO CALL DR. POTTER OFFICE FOR APPOINTMENT. DISCHARGE INSTRUCTIONS HAVE BEEN FAXED TO PCP AND REVIEWED WITH PATIENT AND FAMILY.
--- NOTE | 2019-06-12 12:30 | NUR ---
DISCHARGE INSTRUCTIONS REVIEWED WITH PT AND HIS FAMILY AND VERBALIZES UNDERSTANDING WITH NO QUESTIONS. DOES NOT NEED ANY NEW PRES CALLED TO HIS PHARMACY. LEFT FLOOR VIA W/C WITH ALL PERSONAL BELONGINGS AND LEFT FACILITY VIA PRIVATE VEHICLE WITH HIS FAMILY.
== END 2019-06-12 12:45 | disposition home health service (06) | DRG 92 ==
LOC: D.REHAB 15:05
PROVIDERS: ADMIT Emergency Medicine; ATTEND Emergency Medicine
DX: G72.89 Other specified myopathies (principal); I50.40 Unspecified combined systolic (congestive) and diastolic (congestive) heart failure; N39.0 Urinary tract infection, site not specified; I25.110 Atherosclerotic heart disease of native coronary artery with unstable angina pectoris; C18.9 Malignant neoplasm of colon, unspecified; Z95.0 Presence of cardiac pacemaker; E87.8 Other disorders of electrolyte and fluid balance, not elsewhere classified; Z79.01 Long term (current) use of anticoagulants; I48.91 Unspecified atrial fibrillation; C61 Malignant neoplasm of prostate; G30.9 Alzheimer's disease, unspecified; F02.80 Dementia in other diseases classified elsewhere, unspecified severity, without behavioral disturbance, psychotic disturbance, mood disturbance, and anxiety; D64.9 Anemia, unspecified; E87.6 Hypokalemia; I10 Essential (primary) hypertension

== ENCOUNTER 2019-10-19 15:12 | Inpatient (IN) | payer MEDICARE, BC ==
[~2019-10-19] VITALS: Ht 182.9 cm; Wt 83.9 kg
[2019-10-19 16:11] LABS: BASOPHILS 0.3 % (0-2); EOSINOPHILS 3.3 % (0-7); HEMATOCRIT 45.3 % (42.0-54.0); HEMOGLOBIN 14.8 g/dL (13.5-17.5); IMMATURE GRANULOCYTES 0.1 % (0-5); LYMPHOCYTES 22.8 % (15-50); MCH 31.4 pg (26.0-34.0); MCHC 32.7 g/dL (31.0-37.0); MCV 96.2 fL (80.0-100.0); MEAN PLATELET VOLUME 11.3 fL (7.4-10.4); MONOCYTES 11.3 % (2-11); NEUTROPHILS 62.2 % (40-80); RBC 4.71 10x6/uL (4.20-6.10); RDW 12.8 % (11.5-14.5); WBC 6.9 10x3/uL (4.8-10.8)
[2019-10-19 16:13] LABS: PLATELET COUNT 122 10x3/uL (130-400)
[2019-10-19 16:20] LABS: ANION GAP 10.9 mmol/L (8-16); CALCIUM 8.5 mg/dL (8.5-10.1); CREATININE - SERUM 1.1 mg/dL (0.6-1.3); POTASSIUM - SERUM 3.9 mmol/L (3.5-5.1)
[2019-10-19 16:22] LABS: APTT 31.6 SECONDS (22.8-39.4); INR 1.05 (0.85-1.17); PROTIME 13.6 SECONDS (11.6-15.0)
[2019-10-19 16:25] LABS: ALBUMIN 3.8 g/dL (3.4-5.0); BILIRUBIN - TOTAL 0.89 mg/dL (0.2-1.3); PROTEIN - SERUM 7.3 g/dL (6.4-8.2)
[2019-10-19 17:01] LABS: D-DIMER-QUANTITATIVE 10.7 ug/mLFEU (0.20-0.54)
--- NOTE | 2019-10-19 17:01 | NUR ---
CRITICAL LAB: D-DIMER 10.70 STEPHANIE MATIAS NOTIFIED
--- NOTE | 2019-10-19 17:20 | NUR ---
US TECH AT BS
[2019-10-19 17:30] VITALS: BP 136/78
[2019-10-19 18:17] VITALS: BP 140/83
--- NOTE | 2019-10-19 19:26 | NUR ---
REPORT TO [facility]
[2019-10-19 21:28] VITALS: BP 138/80
[2019-10-20 00:48] VITALS: BP 138/80
[2019-10-20 04:00] VITALS: BP 142/78
--- NOTE | 2019-10-20 04:03 | NUR ---
ASSESSED AT THE TIME OF ARRIVAL FROM ER. PT IS ALERT AND ORIENTED, ABLE TO VERBALIZE NEEDS BUT VERY HARD OF HEARING. HE IS REQUIRING ASSIST TO THE BATHROOM AND IS ABLE TO USE CALL LIGHT WELL. WE HAVE HIS LEFT ARM UP ON A PILLOW AND HE HAS NOT COMPLAINED OF ANY PAIN. SWEET MAN NO COMPLAINTS.
[2019-10-20 05:58] LABS: BASOPHILS 0.4 % (0-2); EOSINOPHILS 3.9 % (0-7); HEMATOCRIT 44.9 % (42.0-54.0); HEMOGLOBIN 14.4 g/dL (13.5-17.5); IMMATURE GRANULOCYTES 0.2 % (0-5); LYMPHOCYTES 28.4 % (15-50); MCH 30.8 pg (26.0-34.0); MCHC 32.1 g/dL (31.0-37.0); MCV 96.1 fL (80.0-100.0); MEAN PLATELET VOLUME 11.2 fL (7.4-10.4); MONOCYTES 10.9 % (2-11); NEUTROPHILS 56.2 % (40-80); PLATELET COUNT 118 10x3/uL (130-400); RBC 4.67 10x6/uL (4.20-6.10); RDW 12.9 % (11.5-14.5)
[2019-10-20 06:08] LABS: WBC 4.9 10x3/uL (4.8-10.8)
[2019-10-20 06:31] LABS: ALBUMIN 3.6 g/dL (3.4-5.0); ALKALINE PHOSPHATASE 78 U/L (30-120); ALT (SGPT) 7 U/L (10-68); CALC OSMOLALITY 276 mosm/kg (275-300); CALCIUM 8.9 mg/dL (8.5-10.1); CARBON DIOXIDE 29.8 mmol/L (21.0-32.0); CHLORIDE - SERUM 103 mmol/L (98-107); GLUCOSE 87 mg/dL (74-106); POTASSIUM - SERUM 3.7 mmol/L (3.5-5.1); PROTEIN - SERUM 6.8 g/dL (6.4-8.2); SODIUM 140 mmol/L (136-145); UREA NITROGEN 10 mg/dL (7-18); eGFR NON AFRICAN AMERICAN 75 mL/min (90-120)
--- NOTE | 2019-10-20 07:58 | NUR ---
A/A/OX4. RESTING IN BED WITH NO C/O. DENIES ANY PAIN AND NO REQUESTS VOICED. IV PATENT TO RIGHT FA AND INFUSING AT 10CC HR, NO REDNESS OR EDEMA AT SITE. SWELLING NOTED OF LEFT UPPER ARM. SIDERAILS UP X 2, CALL LIGHT AND FLUIDS IN REACH AND BED IN LOW LOCKED POSITON.
[2019-10-20] MEDS ORDERED: CELEXA10 MG PO (08:50)
[2019-10-20 10:08] VITALS: BP 142/75
[2019-10-20 12:00] VITALS: BP 144/73
--- NOTE | 2019-10-20 13:37 | NUR ---
I have reviewed this patient and I concur with the Shift Assessment completed by the Licensed Practical Nurse today this shift.
[2019-10-20 16:00] VITALS: BP 139/82
[2019-10-20 20:00] VITALS: BP 144/70
--- NOTE | 2019-10-20 20:01 | NUR ---
ASSISTED PATIENT TO AND FROM PER HIS REQUEST. PATIENT DENIES OTHER NEEDS. PATIENT BED IN LOWEST POSITION AND CALL LIGHT WITHIN REACH. ENCOURAGED THE PATIENT TO CALL IF HE HAS NEEDS. WILL CONTINUE TO MONITOR.
--- NOTE | 2019-10-20 22:22 | NUR ---
ADMINISTERED MEDS PER ORDERS. PATIENT DENIES OTHER NEEDS. WILL CONTINUE TO MONITOR.
[2019-10-21] VITALS: BP 146/84
[2019-10-21 05:10] VITALS: BP 142/79
[2019-10-21 06:32] LABS: BASOPHILS 0.2 % (0-2); EOSINOPHILS 0.7 % (0-7); HEMATOCRIT 43.9 % (42.0-54.0); HEMOGLOBIN 14.3 g/dL (13.5-17.5); IMMATURE GRANULOCYTES 0.2 % (0-5); MCH 30.8 pg (26.0-34.0); MCHC 32.6 g/dL (31.0-37.0); MCV 94.6 fL (80.0-100.0); MEAN PLATELET VOLUME 11.4 fL (7.4-10.4); MONOCYTES 10.5 % (2-11); NEUTROPHILS 69.4 % (40-80); RBC 4.64 10x6/uL (4.20-6.10); RDW 12.7 % (11.5-14.5); WBC 5.4 10x3/uL (4.8-10.8)
[2019-10-21 06:37] LABS: PLATELET COUNT 143 10x3/uL (130-400)
[2019-10-21 07:05] LABS: CALC OSMOLALITY 273 mosm/kg (275-300); CALCIUM 8.8 mg/dL (8.5-10.1); CARBON DIOXIDE 26.9 mmol/L (21.0-32.0); CHLORIDE - SERUM 102 mmol/L (98-107); CREATININE - SERUM 0.8 mg/dL (0.6-1.3); GLUCOSE 124 mg/dL (74-106); PHOSPHOROUS 2.5 mg/dL (2.5-4.9); POTASSIUM - SERUM 3.6 mmol/L (3.5-5.1); SODIUM 137 mmol/L (136-145); UREA NITROGEN 9 mg/dL (7-18); eGFR NON AFRICAN AMERICAN > 90 mL/min (90-120)
--- NOTE | 2019-10-21 07:30 | NUR ---
A/A/OX4. STATES SOME BACK DISCOMFORT BUT THINKS BECAUSES HE HAS BEEN LAYING IN BED TOO MUCH. ASSISTED HIM UP TO BEDSIDE CHAIR. SL PATENT TO RIGHT FOREARM WITHOUT ANY REDNESS OR EDEMA AT SITE. CALL LIGHT AND FLUIDS IN REACH. WILL CONTINUE POC
[2019-10-21 09:04] VITALS: BP 148/82
[2019-10-21] MEDS ORDERED: SEROQUEL50 MG PO (09:41)
[2019-10-21 12:00] VITALS: BP 119/71
--- NOTE | 2019-10-21 14:46 | NUR ---
I have reviewed this patient and I concur with the Shift Assessment completed by the Licensed Practical Nurse today this shift.
[2019-10-21 16:00] VITALS: BP 139/77
[2019-10-21 20:32] VITALS: BP 141/82
[2019-10-22 00:25] VITALS: BP 141/80
--- NOTE | 2019-10-22 01:22 | NUR ---
ALERT AND ORENRTED ABLE TO VOICE NEEDS AND WANT STO STAFF. AMBULATES WITH VICKEY MUSET. REMANS ON LOVONEX FOR DVT CONTROL TO LLE. PACEMAKER NOTED TO UPPERLEFT CHEST. ON ROOM AIR . IV TO RIGHT FOREARN PACEMAKER NOTED TO UPPER LEFT CHEST. CALL LIGHT AND WATER IN REACH. .
[2019-10-22 03:02] VITALS: BP 133/78
[2019-10-22 04:37] LABS: BASOPHILS 0.2 % (0-2); HEMATOCRIT 43.2 % (42.0-54.0); IMMATURE GRANULOCYTES 0.2 % (0-5); LYMPHOCYTES 23.8 % (15-50); MCH 30.6 pg (26.0-34.0); MCHC 32.4 g/dL (31.0-37.0); MCV 94.5 fL (80.0-100.0); MONOCYTES 10.7 % (2-11); NEUTROPHILS 63.1 % (40-80); PLATELET COUNT 144 10x3/uL (130-400); RBC 4.57 10x6/uL (4.20-6.10); RDW 12.8 % (11.5-14.5); WBC 5.1 10x3/uL (4.8-10.8)
[2019-10-22 04:53] LABS: CALC OSMOLALITY 271 mosm/kg (275-300); CALCIUM 8.7 mg/dL (8.5-10.1); CARBON DIOXIDE 31.5 mmol/L (21.0-32.0); CHLORIDE - SERUM 103 mmol/L (98-107); CREATININE - SERUM 0.9 mg/dL (0.6-1.3); GLUCOSE 95 mg/dL (74-106); MAGNESIUM - SERUM 2.1 mg/dL (1.8-2.4); PHOSPHOROUS 2.9 mg/dL (2.5-4.9); POTASSIUM - SERUM 3.5 mmol/L (3.5-5.1); SODIUM 137 mmol/L (136-145); UREA NITROGEN 8 mg/dL (7-18); eGFR NON AFRICAN AMERICAN 85 mL/min (90-120)
--- NOTE | 2019-10-22 07:00 | NUR ---
UP TO BR WITH MIN ASSIST OF ONE. VOIDED CLEAR YELLOW URINE WITHOUT DIFFICULTY.
[2019-10-22 08:32] LABS: APTT 33.6 SECONDS (22.8-39.4); INR 1.11 (0.85-1.17); PROTIME 14.3 SECONDS (11.6-15.0)
--- NOTE | 2019-10-22 08:41 | NUR ---
AWAKE AND ALERT. ORIENTED X3. NO C/O AT THIS TIME. LUNGS ARE CLEAR BILATERALLY, NO COUGH NOTED. SKIN IS INTACT WITHOUT REDNESS. IV TO RIGHT WRIST IS PATENT WITHOUT REDNESS AT INSERTION SITE. ASSISTED UP TO CHAIR AT BEDSIDE FOR BREAKFAST. FEEDS SELF WITH SET UP ASSISTANCE. SCANT EDEMA NOTED TO LEFT UPPER ARM. NO WARMTH DETECTED. WILL MONITOR.
[2019-10-22 09:06] VITALS: BP 147/73
--- NOTE | 2019-10-22 10:00 | NUR ---
ATE LUNCH SITTING UP IN CHAIR AT BEDSIDE. TOOK AM MEDS WITHOUT DIFFICULTY. DENIES NEEDS. TO BR WITH MIN ASSIST OF ONE.
--- NOTE | 2019-10-22 12:30 | NUR ---
ATE ABOUT 75% OF LUNCH. DENIES NEEDS.
[2019-10-22 12:34] VITALS: BP 170/68
--- NOTE | 2019-10-22 14:00 | NUR ---
RESTING QUIETLY IN BED. DENIES NEEDS.
[2019-10-22 17:09] VITALS: BP 135/72
--- NOTE | 2019-10-22 18:01 | NUR ---
ATE MOST OF SUPPER. DENIES NEEDS. NO CHANGES NOTED. UP TO BR WITH MIN ASSIST OF ONE. VOIDED WITHOUT DIFFICULTY.
[2019-10-22 20:00] VITALS: BP 132/73
--- NOTE | 2019-10-22 23:45 | NUR ---
REC'D WALKING ROUNDS ASSISTED TO BATHROOM WITH WALKER AND MINIMAL ASSISTANCE.HORTENSIA WELL.DENIES ANY COMPLAINTS OF PAIN WILL CONTINUE TO MONITOR FOR ANY CHGES IN LUE AND FOLLOW CURRENT PLAN OF CARE.
[2019-10-23 06:05] LABS: BASOPHILS 0.2 % (0-2); EOSINOPHILS 2.1 % (0-7); HEMATOCRIT 45.4 % (42.0-54.0); HEMOGLOBIN 14.7 g/dL (13.5-17.5); IMMATURE GRANULOCYTES 0.2 % (0-5); MCH 30.8 pg (26.0-34.0); MCHC 32.4 g/dL (31.0-37.0); MEAN PLATELET VOLUME 11.1 fL (7.4-10.4); MONOCYTES 10.1 % (2-11); NEUTROPHILS 59.4 % (40-80); PLATELET COUNT 150 10x3/uL (130-400); RBC 4.78 10x6/uL (4.20-6.10); RDW 12.7 % (11.5-14.5); WBC 5.9 10x3/uL (4.8-10.8)
[2019-10-23 06:56] LABS: CALC OSMOLALITY 276 mosm/kg (275-300); CALCIUM 9.3 mg/dL (8.5-10.1); CARBON DIOXIDE 29.5 mmol/L (21.0-32.0); CHLORIDE - SERUM 104 mmol/L (98-107); CREATININE - SERUM 0.7 mg/dL (0.6-1.3); GLUCOSE 100 mg/dL (74-106); MAGNESIUM - SERUM 2.1 mg/dL (1.8-2.4); PHOSPHOROUS 2.9 mg/dL (2.5-4.9); POTASSIUM - SERUM 3.5 mmol/L (3.5-5.1); SODIUM 140 mmol/L (136-145); UREA NITROGEN 8 mg/dL (7-18); eGFR NON AFRICAN AMERICAN > 90 mL/min (90-120)
[2019-10-23 08:35] VITALS: BP 139/83
--- NOTE | 2019-10-23 10:14 | NUR ---
PATIENT ALERT AND ORIENTED. SITTING IN CHAIR RESTING QUIETLY. RESPIRATIONS EVEN NON LABORED. UP WITH ASSIST/WALKER. PACEMAKER. R WRIST IV SALINE LOCKED. NO SIGNS OF DISTRESS NOTED. DENIES FUTHER NEEDS. SIDE RAILS UP. CALL LIGHT IN REACH. WILL CONTINUE TO MONITOR FOR SAFETY.
[2019-10-23 13:03] VITALS: BP 137/75
--- NOTE | 2019-10-23 13:41 | NUR ---
PATIENT STATES "SOB" DENIES ANY CHEST PAIN. O2 SAT 96. DEEP BREATHING EXERCISES. O2 SAT UP TO 98. RAISED HEAD OF BED. SIDE RAILS UP X3. CALL LIGHT IN REACH. WILL CONTINUE TO MONITOR FOR SAFETY.
[2019-10-23 13:46] VITALS: Ht 182.9 cm; Wt 83.9 kg
--- NOTE | 2019-10-23 15:39 | NUR ---
I have reviewed this patient and I concur with the Shift Assessment completed by the Licensed Practical Nurse today this shift.
[2019-10-23 17:17] VITALS: BP 132/83
--- NOTE | 2019-10-23 18:37 | NUR ---
PATIENT ALERT AND ORIENTED. RESTING QUIETLY IN BED WITH EYES OPEN. RESPIRATIONS EVEN NON LABORED. NO SIGNS OF DISTRESS. DENIES FURTHER NEEDS. SIDE RAILS UP X3. CALL LIGHT IN REACH. WILL CONTINUE TO MONITOR FOR SAFETY.
[2019-10-23 20:00] VITALS: BP 108/75
[2019-10-24] VITALS: BP 114/75
[2019-10-24 04:00] VITALS: BP 139/78
[2019-10-24 05:54] LABS: BASOPHILS 0.2 % (0-2); EOSINOPHILS 1.7 % (0-7); HEMATOCRIT 46.6 % (42.0-54.0); HEMOGLOBIN 15.2 g/dL (13.5-17.5); IMMATURE GRANULOCYTES 0.2 % (0-5); LYMPHOCYTES 22.3 % (15-50); MCHC 32.6 g/dL (31.0-37.0); MCV 95.1 fL (80.0-100.0); MEAN PLATELET VOLUME 11.3 fL (7.4-10.4); NEUTROPHILS 65.6 % (40-80); PLATELET COUNT 153 10x3/uL (130-400); RDW 12.8 % (11.5-14.5); WBC 5.2 10x3/uL (4.8-10.8)
[2019-10-24 06:31] LABS: CALC OSMOLALITY 276 mosm/kg (275-300); CALCIUM 8.8 mg/dL (8.5-10.1); CARBON DIOXIDE 29.2 mmol/L (21.0-32.0); CHLORIDE - SERUM 103 mmol/L (98-107); CREATININE - SERUM 0.8 mg/dL (0.6-1.3); GLUCOSE 88 mg/dL (74-106); MAGNESIUM - SERUM 2.1 mg/dL (1.8-2.4); POTASSIUM - SERUM 3.3 mmol/L (3.5-5.1); SODIUM 140 mmol/L (136-145); UREA NITROGEN 10 mg/dL (7-18); eGFR NON AFRICAN AMERICAN > 90 mL/min (90-120)
[2019-10-24 08:21] VITALS: BP 136/81
--- NOTE | 2019-10-24 09:30 | NUR ---
PATIENT ALERT AND ORIENTED. RESTING QUIETLY IN BED WITH EYES OPEN. RESPIRATIONS EVEN NON LABORED. NO SIGNS OF DISTRESS NOTED. NPO CHANGED TO AHA CARIDAC DIET. CONTACTED FABY, "SAYS TAMIKA IS TREATING MEDICAL THERAPY ONLY." PATIENT HAS TRAY AND DENIES FURTHER NEEDS. SIDE RAILS UP X3. CALL LIGHT IN REACH. WILL CONTINUE TO MONITOR FOR SAFETY.
[2019-10-24] MEDS ORDERED: ELIQUIS5 MG PO (11:55)
--- NOTE | 2019-10-24 12:53 | NUR ---
PATIENT ALERT AND ORIENTED RESTING IN BED WITH EYES CLOSED. RESPIRATIONS EVEN NON LABORED. NO SIGNS OF DISTRESS NOTED. UP WITH WALKER. DVT ON UPPER LEFT ARM. PACEMAKER. RIGHT WRIST IV SALINE LOCK. DENIES FURTHR NEEDS. SIDE RAILS UP X3. CALL LIGHT IN REACH. WILL CONTINUE TO MONITOR.
--- NOTE | 2019-10-24 13:13 | MORECARE ---
CASE MANAGEMENT DISCHARGE SUMMARY PATIENT: JAVIER PENNY UNIT: [id number] ADM DATE: 10/19/19 AGE: 88 : 32 SEX: M ROOM/BED: D.2202 AUTHOR: GONZÁLEZ OLVERA PHYSICIAN: REFERRING PHYSICIAN: YAZAN MONTIEL MD DATE OF SERVICE: 10/24/19 Discharge Plan Patient Name: JAVIER PENNY [facility] [facility] 1930 Planned Disposition: Home with Hospice Anticipated Discharge Date: Discharge Date: Expected LOS: Initial Reviewer: [email or web address] Initial Review Date: 10/19/2019 Generated: 10/24/19 2:12 pm External Providers External Provider: [facility] Next Contact Date: Service Request Date: Service Type: Resolution: Reviewer: Comments: Patient Name: JAVIER PENNY Page [phone] at 1313 All edits/amendments must be made on the electronic document DICTATION DATE: 10/24/19 1312 SALES AND SERVICE AGENT: RICHIE 10/24/19 1312 RPT#: [id number] MO DATE: STATUS: ADM IN [facility] [address] [place] [address] END OF REPORT
--- NOTE | 2019-10-24 13:20 | MORECARE ---
CASE MANAGEMENT DISCHARGE SUMMARY PATIENT: JAVIER PENNY UNIT: [id number] ADM DATE: 10/19/19 AGE: 88 : 32 SEX: M ROOM/BED: D.2202 AUTHOR: GONZÁLEZ OLVERA PHYSICIAN: REFERRING PHYSICIAN: YAZAN MONTIEL MD DATE OF SERVICE: 10/24/19 Discharge Plan Patient Name: JAVIER PENNY Facility: [facility]:[place] : 1930 Planned Disposition: Home with Hospice Anticipated Discharge Date: Discharge Date: Expected LOS: Initial Reviewer: [email or web address] Initial Review Date: 10/19/2019 Generated: 10/24/19 2:19 pm Comments DCP- Discharge Planning Updated by [email or web address]: Marie Humphrey on 10/24/19 12:[address] CM SPOKE WITH PATIENT AND DC HOME, HE STATED THAT HE LIVES WITH HIS GRANDDAUGHTER AND HER FAMILY AND SHE WILL BE THE ONE TO PICK HIM UP TODAY. HE IS CURRENT WITH [facility] AND I CALLED BELVERLY AND SHE STATED THAT HE DID REVOCATE WHEN HE WAS ADMITTED TO THE HOSPITAL, BUT THEY WILL START IT BACK WHEN HE DISCHARGES FROM THE HOSPITAL. YARA CALLED HIS GRANDDAUGHTER TO VERFY THE ABOVE AND SHE DID. PATIENT WILL BE DISCHARGED TODAY HOME WITH HIS GRANDDAUGHTER AND WILL RESTART HOME HOSPICE WITH [facility] DCPIA - Discharge Planning Initial Assessment Updated by [email or web address]: Marie Humphrey on 10/24/19 1:16 pm * PCP SHAN * Pharmacy [facility] * Preadmission Environment Home with Family * ADLs Independent * List name and contact numbers for known caregivers / representatives who currently or will assist patient after discharge: TANNER [phone] * Verbal permission to speak to the caregivers and representatives has been obtained from the patient. Yes * Community resources currently utilized Hospice Home * Please name any agencies selected above. [facility] * Additional services required to return to the preadmission environment? No * Can the patient safely return to the preadmission environment? Yes * Has this patient been hospitalized within the prior 30 days at any hospital? No Last DP export: 10/24/19 12:13 p Patient Name: JAVIER PENNY Page 06789 at 1320 All edits/amendments must be made on the electronic document DICTATION DATE: 10/24/19 131 VISUAL STYLIST: RICHIE 10/24/191318 RPT#: [id number] DC DATE: STATUS: ADM IN [facility] [address] [place] [address] END OF REPORT
--- NOTE | 2019-10-24 15:15 | NUR ---
DC IV. WENT OVER PATIENT DISCHARGE INSTRUCTIONS. ANSWER QUESTIONS. NO FURTHER QUESTIONS ASKED. PATIENT SIGNED DISCHARGE PAPERWORK. TOOK DOWN IN WHEELCHAIR. PATIENT DISCHARGED WITH FAMILY.
--- NOTE | 2019-10-24 16:56 | MORECARE ---
CASE MANAGEMENT DISCHARGE SUMMARY PATIENT: JAVIER PENNY UNIT: [id number] ADM DATE: 10/19/19 AGE: 88 : 32 SEX: M ROOM/BED: D.2202 AUTHOR: GONZÁLEZ OLVERA PHYSICIAN: REFERRING PHYSICIAN: YAZAN MONTIEL MD DATE OF SERVICE: 10/24/19 Discharge Plan Patient Name: JAVIER PENNY Facility: [facility]:[place] : 1930 Planned Disposition: Home with Hospice Anticipated Discharge Date: Discharge Date: 10/24/2019 Expected LOS: Initial Reviewer: [email or web address] Initial Review Date: 10/19/2019 Generated: 10/24/19 5:55 pm Comments DCP- Discharge Planning Updated by [email or web address]: Marie Humphrey on 10/24/19 12:[address] CM SPOKE WITH PATIENT AND DC HOME, HE STATED THAT HE LIVES WITH HIS GRANDDAUGHTER AND HER FAMILY AND SHE WILL BE THE ONE TO PICK HIM UP TODAY. HE IS CURRENT WITH [facility] AND I CALLED BELVERLY AND SHE STATED THAT HE DID REVOCATE WHEN HE WAS ADMITTED TO THE HOSPITAL, BUT THEY WILL START IT BACK WHEN HE DISCHARGES FROM THE HOSPITAL. YARA CALLED HIS GRANDDAUGHTER TO VERFY THE ABOVE AND SHE DID. PATIENT WILL BE DISCHARGED TODAY HOME WITH HIS GRANDDAUGHTER AND WILL RESTART HOME HOSPICE WITH [facility] DCPIA - Discharge Planning Initial Assessment Updated by [id number]: Maire Humphrey on 10/24/19 1:16 pm * PCP SHAN * Pharmacy [facility] * Preadmission Environment Home with Family * ADLs Independent * List name and contact numbers for known caregivers / representatives who currently or will assist patient after discharge: TANNER [phone] * Verbal permission to speak to the caregivers and representatives has been obtained from the patient. Yes * Community resources currently utilized Hospice Home * Please name any agencies selected above. [facility] * Additional services required to return to the preadmission environment? No * Can the patient safely return to the preadmission environment? Yes * Has this patient been hospitalized within the prior 30 days at any hospital? No Last DP export: 10/24/19 12:20 p Patient Name: JAVIER PENNY Page [id number] at 1656 All edits/amendments must be made on the electronic document DICTATION DATE: 10/24/191654 PAPER CUTTER: RICHIE 10/24/191654 RPT#: [id number] DC DATE:10/24/19 STATUS: DIS IN [facility] [address] [place] [address] END OF REPORT
== END 2019-10-24 16:05 | disposition home health service (06) | DRG 300 ==
LOC: D.ER 15:12 → D.MS 19:42
PROVIDERS: Family Medicine; Radiology Diagnostic Radiology; ADMIT Family Medicine; ATTEND Family Medicine
DX: I82.622 Acute embolism and thrombosis of deep veins of left upper extremity (principal); I50.42 Chronic combined systolic (congestive) and diastolic (congestive) heart failure; I11.0 Hypertensive heart disease with heart failure; E78.5 Hyperlipidemia, unspecified; Z95.0 Presence of cardiac pacemaker; G30.9 Alzheimer's disease, unspecified; F02.80 Dementia in other diseases classified elsewhere, unspecified severity, without behavioral disturbance, psychotic disturbance, mood disturbance, and anxiety; G89.29 Other chronic pain; I25.10 Atherosclerotic heart disease of native coronary artery without angina pectoris; Z86.711 Personal history of pulmonary embolism